=== PATIENT | female | born 1965 | race Caucasian/White ===

== ENCOUNTER 2018-08-10 11:52 | Emergency (ER) | payer MEDICARE, MEDICAID, SELFPAY ==
[2018-08-10 11:55] VITALS: BP 172/87; PULSE 103; RESP 16; TEMP 36.8; O2SAT 96
--- NOTE | 2018-08-10 13:05 | W.ED.GENAD ---
Discharge Plan Disposition Patient Disposition: HOME Condition: Stable Discharge Details Chief Complaint: RespSymp Clinical Impression: Acute bronchitis, URI (upper respiratory infection) Primary Care Provider: Ally Dalal ED Provider: Beatrice Ross Home Meds and New Rx's Prescriptions: New benzonatate [Tessalon Perles] 100 mg capsule 100 mg PO TID PRN (Reason: cough) Qty: 10 RF: 0 prednisone 50 mg tablet 50 mg PO DAILY 5 Days Qty: 5 RF: 0 albuterol sulfate 90 mcg/actuation HFA aerosol inhaler 2 puff IH Q6H PRN (Reason: shortness of breath or wheezing) Qty: 8.5 RF: 0 doxycycline hyclate 100 mg tablet 100 mg PO BID 5 Days Qty: 10 RF: 0 Continue prazosin 1 MG capsule 1 mg PO HS RF: 0 omeprazole 40 MG capsule,delayed release(DR/EC) 40 mg PO DAILY RF: 0 metformin [Glucophage] 1,000 MG tablet 1,000 mg PO BID Qty: 180 RF: 3 acyclovir 200 MG capsule 200 mg PO TID Qty: 270 RF: 3 blood sugar diagnostic [Accu-Chek SmartView Test Strip] 1 EACH strip 1 ea Miscellaneous BID Qty: 200 RF: 11 lancets [Accu-Chek Multiclix Lancet] 1 EACH misc 1 ea Miscellaneous BID Qty: 2 RF: 11 estradiol 1 EACH patch weekly 1 ea Transdermal Q7D 28 Days Qty: 4 RF: 6 duloxetine 60 MG capsule,delayed release(DR/EC) 60 mg PO DAILY 90 Days Qty: 90 RF: 3 loratadine [Claritin] 10 MG tablet 10 mg PO DAILY Qty: 90 RF: 0 levothyroxine 137 MCG tablet 137 mcg PO DAILY Qty: 90 RF: 0 quetiapine 50 mg tablet 50 mg PO HS Qty: 90 RF: 3 albuterol sulfate [Ventolin HFA] 90 mcg/actuation Hfa Aerosol Inhaler Inhalation PRN PRNRF: 0 Discontinued magnesium oxide 400 MG tablet 400 mg PO HS Qty: 250 RF: 6 Discharge Instructions Instructions: Upper Respiratory Infection (ED), Acute Bronchitis (ED) Additional Instructions: Drink plenty of fluids and get plenty of rest. Take the steroids as directed until finished. Take the cough medicine and albuterol inhaler as needed and directed. Hold on taking the magnesium while taking the antibiotic as it can have an interaction. If you have no relief or worsening of symptoms in the next 2 days, you may start the antibiotics. Follow-up with her primary care doctor in 2 days for reevaluation. Return immediately to the emergency department with any worsening or new concerning symptoms. Discharge Data Discharge Date/Time-TO BE ENTERED AT DEPARTURE: 08/10/18 13:30 Discharge Physician: Beatrice Ross Medical Decision Making Patient is a 53-year-old female who presents to the ED with a complaint of cough, chest congestion and headache worse with coughing for the past 3 weeks. Also c/o sore throat that is mainly present with coughing. Admits to green and yellow sputum production. Denies fever, neck pain. Has occasional shortness of breath but not at present. Afebrile and heart rate normal on exam in room. Oxygen saturation 96% on room air. Respiratory rate within normal limits. Patient appears nontoxic and in no acute distress. ENT exam within normal limits. She has very minimal wheezing noted but frequent coughing with chest congestion and on exam. Differential diagnosis appears consistent with acute bronchitis, URI, pharyngitis. No fever or neck pain and no meningeal signs. At this point in time, I do not see any indication for rapid strep testing or chest x-ray and patient is agreeable. Patient would mainly like a prescription for medications. We will send home with a prescription for prednisone, Tessalon Perles and she also requests a refill of her albuterol. Patient was advised that her symptoms could certainly be viral but may turn bacterial. We will send him with a prescription for Zithromax to start if her symptoms do not improve or worsen over the next 2 days. Patient is instructed to follow-up with primary care doctor in 1 week and return here immediately if worse. HPI General Mode of arrival: ambulatory. Date/Time Provider Initiated Documentation: 08/10/18 12:03. Limitations to Documentation: no limitations. Information obtained by: patient. HPI Narrative: Pt is a 53yo F who presents to the ED w/ a c/o cough with yellow and green sputum, sore throat and headache for 3 weeks, worse this morning. States the headache and chest congestion are bothering her the most. She denies known fever. She has been taking Mucinex, Advil, Denise-[place] without relief. She denies recent antibiotics. She admits to occasional shortness of breath but none at present. She denies chest pain. Past medical history: Diabetes, hypertension, asthma, seasonal allergies Surgical history: Knee reconstruction, cervical fusion Social history: Former tobacco smoker. Rare EtOH. Daily medical marijuana user for fibromyalgia and chronic neck pain. Medications: See list Allergies: Codeine, penicillin, erythromycin PCP: [facility] internal medicine Related Data Home Medications Medication Instructions Recorded Confirmed prazosin 1 mg PO HS cap 11/28/17 08/10/18 omeprazole 40 mg PO DAILY tab-cap 12/14/17 08/10/18 acyclovir 200 mg PO TID #270 cap 12/21/17 08/10/18 metformin [Glucophage] 1,000 mg PO BID #180 tab 12/21/17 08/10/18 blood sugar diagnostic [Accu-Chek #200 strip 01/10/18 SmartView Test Strip] lancets [Accu-Chek Multiclix #2 box 01/10/18 08/10/18 Lancet] duloxetine 60 mg PO DAILY 90 Days #90 cap 01/14/18 08/10/18 estradiol 1 ea TRANSDERMAL Q7D 28 Days #4 01/14/18 08/10/18 script loratadine [Claritin] 10 mg PO DAILY #90 tab-cap 04/10/18 08/10/18 levothyroxine 137 mcg PO DAILY #90 tab-cap 07/10/18 08/10/18 quetiapine 50 mg tablet 50 mg PO HS #90 tab 08/09/18 08/10/18 albuterol sulfate 2 puff IH Q6H PRN #8.5 gm 08/10/18 albuterol sulfate [Ventolin HFA] INHALATION PRN PRN 08/10/18 benzonatate [Tessalon Perles] 100 mg PO TID PRN #10 cap 08/10/18 doxycycline hyclate 100 mg PO BID 5 Days #10 tab 08/10/18 prednisone 50 mg PO DAILY 5 Days #5 tab 08/10/18 Previous Rx's Medication Instructions Recorded acyclovir 200 mg PO TID #270 cap 12/21/17 metformin [Glucophage] 1,000 mg PO BID #180 tab 12/21/17 blood sugar diagnostic [Accu-Chek #200 strip 01/10/18 SmartView Test Strip] lancets [Accu-Chek Multiclix #2 box 01/10/18 Lancet] duloxetine 60 mg PO DAILY 90 Days #90 cap 01/14/18 estradiol 1 ea TRANSDERMAL Q7D 28 Days #4 01/14/18 script loratadine [Claritin] 10 mg PO DAILY #90 tab-cap 04/10/18 levothyroxine 137 mcg PO DAILY #90 tab-cap 07/10/18 quetiapine 50 mg tablet 50 mg PO HS #90 tab 08/09/18 albuterol sulfate 2 puff IH Q6H PRN #8.5 gm 08/10/18 benzonatate [Tessalon Perles] 100 mg PO TID PRN #10 cap 08/10/18 doxycycline hyclate 100 mg PO BID 5 Days #10 tab 08/10/18 prednisone 50 mg PO DAILY 5 Days #5 tab 08/10/18 Allergies Allergy/AdvReac Type Severity Reaction Status Date / Time duloxetine HCl Allergy Unknown Unverified 08/10/18 11:59 [From [facility]] influenza virus vaccine, Allergy ill with Unverified 08/10/18 11:59 specific s/s for at least 2w Penicillins Allergy Headache Unverified 08/10/18 11:59 venlafaxine Allergy Unverified 08/10/18 11:59 codeine AdvReac Psychosis Unverified 08/10/18 11:59 erythromycin base AdvReac Nausea Unverified 08/10/18 11:59 General Stated Complaint: RespSymp MATT: 4 Review of Systems Constitutional Denies chills, Denies excessive sweating, Denies fatigue, Denies fever(s), Reports headache(s), Denies weakness and Denies weight loss Eyes Patient Reports system reviewed and no additional complaints, except as docu and Denies blurry vision ENT Denies vertigo, Denies dizziness, Denies otalgia, Reports headache(s), Reports nasal congestion, Reports nasal discharge, Reports sore throat and Denies throat swelling Cardiovascular Denies chest pain, Denies syncope, Denies rapid heart rate and Denies dyspnea Respiratory Denies dyspnea Gastrointestinal Denies abdominal pain, Denies diarrhea and Denies vomiting Genitourinary Denies hematuria, Denies dysuria and Denies flank pain Musculoskeletal Denies back pain and Denies joint swelling Integumentary/Breasts Denies lesions and Denies rash Neurologic Denies behavioral changes, Denies confusion, Denies vertigo, Denies dizziness, Denies syncope, Reports headache(s) and Denies weakness Psychiatric Denies behavioral changes, Denies confusion and Denies depression Endocrine Denies excessive sweating and Denies fatigue Hematologic/Lymphatic Denies easy bruising and Denies lymphadenopathy Allergic/Immunologic Denies throat swelling PFSH Family History Mother Hyperthyroidism Father No problems noted. Brother No problems noted. Brother No problems noted. Social History Smoking/Tobacco Use Status: Former Tobacco Use Surgical History Colonoscopy w/ Bx (07/22/13) Elbow Surgery Hysterectomy (10/21/10) Knee Surgery Open Carpal Tunnel release (01/13/13) [place] Teeth (01/29/18) Exam Const General: cooperative and healthy appearing Orientation: alert and awake HENMT Head: normal to inspection Ears: hearing grossly normal bilaterally, external ears normal and TM's normal bilaterally General nose exam: external nose normal Face and sinus: normal facial exam and sinuses tender (Mild tenderness to palpation of bilateral frontal sinuses. No tenderness to palpation of maxillary sinuses) Mouth: oral mucosae normal Teeth and gingiva: dentition normal Throat: posterior oropharynx normal, uvula midline, no peritonsillar masses and other (No exudate or abscess) Eyes General: appearance normal, both eyes and all related structures Eyelids: eyelids normal Pupils: PERRL EOM: EOM intact bilaterally Neck Neck: normal visual inspection Lymphatic: no lymphadenopathy noted Chest Chest: normal inspection of the chest Resp Effort & Inspection: normal respiratory effort and able to speak in complete sentences Auscultation: no crackles, no rales, no rhonchi and wheezes (Minimal scattered wheezing throughout) Cardio Rate: regular rate Rhythm: regular rhythm GI Inspection: normal to inspection Skin General skin exam: no rashes or lesions noted Neuro General: alert and awake Cognition: normal cognition Speech: speech normal Gait: normal gait Motor: muscle tone normal throughout Sensory Exam: no sensory deficits noted Extrem General: normal to inspection and full ROM Psych Appearance: grossly normal Mental Status: mental status grossly normal Speech and Movement: speech and movement normal Affect: normal affect Thought Process: normal Course Vital Signs Temperature 98.2 F 08/10/18 11:55 Pulse 103 H 08/10/18 11:55 Respiratory Rate 16 08/10/18 11:55 Blood Pressure 172/87 H 08/10/18 11:55 Pulse Oximetry 96 08/10/18 11:55 Temperature 98.2 F 08/10/18 11:55 Pulse 103 H 08/10/18 11:55 Respiratory Rate 16 08/10/18 11:55 Blood Pressure 172/87 H 08/10/18 11:55 Pulse Oximetry 96 08/10/18 11:55
--- NOTE | 2018-08-10 13:12 | ED.GENADUL_ITS ---
Discharge Plan Disposition Patient Disposition: HOME Condition: Stable Discharge Details Chief Complaint: RespSymp Clinical Impression: Acute bronchitis, URI (upper respiratory infection) Primary Care Provider: Ally Dalal ED Provider: Beatrice Ross Home Meds and New Rx's Prescriptions: New benzonatate [Tessalon Perles] 100 mg capsule 100 mg PO TID PRN (Reason: cough) Qty: 10 RF: 0 prednisone 50 mg tablet 50 mg PO DAILY 5 Days Qty: 5 RF: 0 albuterol sulfate 90 mcg/actuation HFA aerosol inhaler 2 puff IH Q6H PRN (Reason: shortness of breath or wheezing) Qty: 8.5 RF: 0 doxycycline hyclate 100 mg tablet 100 mg PO BID 5 Days Qty: 10 RF: 0 Continue prazosin 1 MG capsule 1 mg PO HS RF: 0 omeprazole 40 MG capsule,delayed release(DR/EC) 40 mg PO DAILY RF: 0 metformin [Glucophage] 1,000 MG tablet 1,000 mg PO BID Qty: 180 RF: 3 acyclovir 200 MG capsule 200 mg PO TID Qty: 270 RF: 3 blood sugar diagnostic [Accu-Chek SmartView Test Strip] 1 EACH strip 1 ea Miscellaneous BID Qty: 200 RF: 11 lancets [Accu-Chek Multiclix Lancet] 1 EACH misc 1 ea Miscellaneous BID Qty: 2 RF: 11 estradiol 1 EACH patch weekly 1 ea Transdermal Q7D 28 Days Qty: 4 RF: 6 duloxetine 60 MG capsule,delayed release(DR/EC) 60 mg PO DAILY 90 Days Qty: 90 RF: 3 loratadine [Claritin] 10 MG tablet 10 mg PO DAILY Qty: 90 RF: 0 levothyroxine 137 MCG tablet 137 mcg PO DAILY Qty: 90 RF: 0 quetiapine 50 mg tablet 50 mg PO HS Qty: 90 RF: 3 albuterol sulfate [Ventolin HFA] 90 mcg/actuation Hfa Aerosol Inhaler Inhalation PRN PRNRF: 0 Discontinued magnesium oxide 400 MG tablet 400 mg PO HS Qty: 250 RF: 6 Discharge Instructions Instructions: Upper Respiratory Infection (ED), Acute Bronchitis (ED) Additional Instructions: Drink plenty of fluids and get plenty of rest. Take the steroids as directed until finished. Take the cough medicine and albuterol inhaler as needed and directed. Hold on taking the magnesium while taking the antibiotic as it can have an interaction. If you have no relief or worsening of symptoms in the next 2 days, you may start the antibiotics. Follow-up with her primary care doctor in 2 days for reevaluation. Return immediately to the emergency department with any worsening or new concerning symptoms. Discharge Data Discharge Date/Time-TO BE ENTERED AT DEPARTURE: 08/10/18 13:30 Discharge Physician: Beatrice Ross Medical Decision Making Patient is a 53-year-old female who presents to the ED with a complaint of cough , chest congestion and headache worse with coughing for the past 3 weeks. Also c /o sore throat that is mainly present with coughing. Admits to green and yellow sputum production. Denies fever, neck pain. Has occasional shortness of breath but not at present. Afebrile and heart rate normal on exam in room. Oxygen saturation 96% on room air. Respiratory rate within normal limits. Patient appears nontoxic and in no acute distress. ENT exam within normal limits. She has very minimal wheezing noted but frequent coughing with chest congestion and on exam. Differential diagnosis appears consistent with acute bronchitis, URI, pharyngitis. No fever or neck pain and no meningeal signs. At this point in time, I do not see any indication for rapid strep testing or chest x-ray and patient is agreeable. Patient would mainly like a prescription for medications. We will send home with a prescription for prednisone, Tessalon Perles and she also requests a refill of her albuterol. Patient was advised that her symptoms could certainly be viral but may turn bacterial. We will send him with a prescription for Zithromax to start if her symptoms do not improve or worsen over the next 2 days. Patient is instructed to follow-up with primary care doctor in 1 week and return here immediately if worse. HPI General Mode of arrival: ambulatory . Date/Time Provider Initiated Documentation: 08/10/18 12:03 . Limitations to Documentation: no limitations . Information obtained by: patient . HPI Narrative: Pt is a 53yo F who presents to the ED w/ a c/o cough with yellow and green sputum, sore throat and headache for 3 weeks, worse this morning. States the headache and chest congestion are bothering her the most. She denies known fever. She has been taking Mucinex, Advil, Denise-[place] without relief. She denies recent antibiotics. She admits to occasional shortness of breath but none at present. She denies chest pain. Past medical history: Diabetes, hypertension, asthma, seasonal allergies Surgical history: Knee reconstruction, cervical fusion Social history: Former tobacco smoker. Rare EtOH. Daily medical marijuana user for fibromyalgia and chronic neck pain. Medications: See list Allergies: Codeine, penicillin, erythromycin PCP: [facility] internal medicine Related Data Home Medications Medication Instructions Recorded Confirmed prazosin 1 mg PO HS cap 11/28/17 08/10/18 omeprazole 40 mg PO DAILY tab-cap 12/14/17 08/10/18 acyclovir 200 mg PO TID #270 cap 12/21/17 08/10/18 metformin [Glucophage] 1,000 mg PO BID #180 tab 12/21/17 08/10/18 blood sugar diagnostic [Accu-Chek #200 strip 01/10/18 SmartView Test Strip] lancets [Accu-Chek Multiclix #2 box 01/10/18 08/10/18 Lancet] duloxetine 60 mg PO DAILY 90 Days #90 cap 01/14/18 08/10/18 estradiol 1 ea TRANSDERMAL Q7D 28 Days #4 01/14/18 08/10/18 script loratadine [Claritin] 10 mg PO DAILY #90 tab-cap 04/10/18 08/10/18 levothyroxine 137 mcg PO DAILY #90 tab-cap 07/10/18 08/10/18 quetiapine 50 mg tablet 50 mg PO HS #90 tab 08/09/18 08/10/18 albuterol sulfate 2 puff IH Q6H PRN #8.5 gm 08/10/18 albuterol sulfate [Ventolin HFA] INHALATION PRN PRN 08/10/18 benzonatate [Tessalon Perles] 100 mg PO TID PRN #10 cap 08/10/18 doxycycline hyclate 100 mg PO BID 5 Days #10 tab 08/10/18 prednisone 50 mg PO DAILY 5 Days #5 tab 08/10/18 Previous Rx's Medication Instructions Recorded acyclovir 200 mg PO TID #270 cap 12/21/17 metformin [Glucophage] 1,000 mg PO BID #180 tab 12/21/17 blood sugar diagnostic [Accu-Chek #200 strip 01/10/18 SmartView Test Strip] lancets [Accu-Chek Multiclix #2 box 01/10/18 Lancet] duloxetine 60 mg PO DAILY 90 Days #90 cap 01/14/18 estradiol 1 ea TRANSDERMAL Q7D 28 Days #4 01/14/18 script loratadine [Claritin] 10 mg PO DAILY #90 tab-cap 04/10/18 levothyroxine 137 mcg PO DAILY #90 tab-cap 07/10/18 quetiapine 50 mg tablet 50 mg PO HS #90 tab 08/09/18 albuterol sulfate 2 puff IH Q6H PRN #8.5 gm 08/10/18 benzonatate [Tessalon Perles] 100 mg PO TID PRN #10 cap 08/10/18 doxycycline hyclate 100 mg PO BID 5 Days #10 tab 08/10/18 prednisone 50 mg PO DAILY 5 Days #5 tab 08/10/18 Allergies Allergy/AdvReac Type Severity Reaction Status Date / Time duloxetine HCl Allergy Unknown Unverified 08/10/18 11:59 [From [facility]] influenza virus vaccine, Allergy ill with Unverified 08/10/18 11:59 specific s/s for at least 2w Penicillins Allergy Headache Unverified 08/10/18 11:59 venlafaxine Allergy Unverified 08/10/18 11:59 codeine AdvReac Psychosis Unverified 08/10/18 11:59 erythromycin base AdvReac Nausea Unverified 08/10/18 11:59 General Stated Complaint: RespSymp MATT: 4 Review of Systems Constitutional Denies chills, Denies excessive sweating, Denies fatigue, Denies fever(s), Reports headache(s), Denies weakness and Denies weight loss Eyes Patient Reports system reviewed and no additional complaints, except as docu and Denies blurry vision ENT Denies vertigo, Denies dizziness, Denies otalgia, Reports headache(s), Reports nasal congestion, Reports nasal discharge, Reports sore throat and Denies throat swelling Cardiovascular Denies chest pain, Denies syncope, Denies rapid heart rate and Denies dyspnea Respiratory Denies dyspnea Gastrointestinal Denies abdominal pain, Denies diarrhea and Denies vomiting Genitourinary Denies hematuria, Denies dysuria and Denies flank pain Musculoskeletal Denies back pain and Denies joint swelling Integumentary/Breasts Denies lesions and Denies rash Neurologic Denies behavioral changes, Denies confusion, Denies vertigo, Denies dizziness, Denies syncope, Reports headache(s) and Denies weakness Psychiatric Denies behavioral changes, Denies confusion and Denies depression Endocrine Denies excessive sweating and Denies fatigue Hematologic/Lymphatic Denies easy bruising and Denies lymphadenopathy Allergic/Immunologic Denies throat swelling PFSH Family History Mother Hyperthyroidism Father No problems noted. Brother No problems noted. Brother No problems noted. Social History Smoking/Tobacco Use Status: Former Tobacco Use Surgical History Colonoscopy w/ Bx (07/22/13) Elbow Surgery Hysterectomy (10/21/10) Knee Surgery Open Carpal Tunnel release (01/13/13) [place] Teeth (01/29/18) Exam Const General: cooperative and healthy appearing Orientation: alert and awake HENMT Head: normal to inspection Ears: hearing grossly normal bilaterally, external ears normal and TM's normal bilaterally General nose exam: external nose normal Face and sinus: normal facial exam and sinuses tender (Mild tenderness to palpation of bilateral frontal sinuses. No tenderness to palpation of maxillary sinuses) Mouth: oral mucosae normal Teeth and gingiva: dentition normal Throat: posterior oropharynx normal, uvula midline, no peritonsillar masses and other (No exudate or abscess) Eyes General: appearance normal, both eyes and all related structures Eyelids: eyelids normal Pupils: PERRL EOM: EOM intact bilaterally Neck Neck: normal visual inspection Lymphatic: no lymphadenopathy noted Chest Chest: normal inspection of the chest Resp Effort & Inspection: normal respiratory effort and able to speak in complete sentences Auscultation: no crackles, no rales, no rhonchi and wheezes (Minimal scattered wheezing throughout) Cardio Rate: regular rate Rhythm: regular rhythm GI Inspection: normal to inspection Skin General skin exam: no rashes or lesions noted Neuro General: alert and awake Cognition: normal cognition Speech: speech normal Gait: normal gait Motor: muscle tone normal throughout Sensory Exam: no sensory deficits noted Extrem General: normal to inspection and full ROM Psych Appearance: grossly normal Mental Status: mental status grossly normal Speech and Movement: speech and movement normal Affect: normal affect Thought Process: normal Course Vital Signs Temperature 98.2 F 08/10/18 11:55 Pulse 103 H 08/10/18 11:55 Respiratory Rate 16 08/10/18 11:55 Blood Pressure 172/87 H 08/10/18 11:55 Pulse Oximetry 96 08/10/18 11:55 Temperature 98.2 F 08/10/18 11:55 Pulse 103 H 08/10/18 11:55 Respiratory Rate 16 08/10/18 11:55 Blood Pressure 172/87 H 08/10/18 11:55 Pulse Oximetry 96 08/10/18 11:55
== END 2018-08-10 13:30 | disposition home or self-care (01) ==
PROVIDERS: Emergency Provider Physician Assistant; PCP Student in an Organized Health Care Education/Training Program
DX: J20.9 Acute bronchitis, unspecified (principal); J06.9 Acute upper respiratory infection, unspecified; E11.9 Type 2 diabetes mellitus without complications; Z79.84 Long term (current) use of oral hypoglycemic drugs; Z87.891 Personal history of nicotine dependence; I10 Essential (primary) hypertension
CPT/HCPCS: 99283

== ENCOUNTER 2019-02-28 00:28 | Outpatient (CLI) | payer MEDICARE, MEDICAID, SELFPAY ==
--- NOTE | 2019-02-28 09:43 | DI.US_ITS ---
SYMPTOMS/DIAGNOSIS: HX FIBROID WITH NEW ONSET RLQ PAIN, RT GROIN PAIN, R10.31, Z86.018 HX BENIGN NEOPLASM PELVIC ULTRASOUND: Pelvic ultrasound was performed transabdominally and transvaginally. Please see the accompanying data sheet for measurements of the pelvic structures. The patient has had a previous hysterectomy. The ovaries are unremarkable in appearance. No free fluid identified in the pelvis. Limited scanning of the kidneys shows an apparent medullary cyst on the right and is otherwise unremarkable. CONCLUSION: Negative pelvic ultrasound post hysterectomy.
== END 2019-02-28 00:48 ==
PROVIDERS: PCP Student in an Organized Health Care Education/Training Program; Visit Provider Student in an Organized Health Care Education/Training Program
DX: R10.31 Right lower quadrant pain (principal); Z86.018 Personal history of other benign neoplasm; Z90.710 Acquired absence of both cervix and uterus
CPT/HCPCS: 76830; 76856

== ENCOUNTER 2019-08-20 16:37 | Outpatient (REF) | payer MEDICARE, MEDICAID, SELFPAY ==
[2019-08-20 20:40] LABS: TSH (W/Ref FT4) 2.27 uIU/mL (0.36-3.74)
== END 2019-08-20 16:57 ==
LOC: LBN 16:37
PROVIDERS: PCP Student in an Organized Health Care Education/Training Program; Referring Provider Student in an Organized Health Care Education/Training Program; Visit Provider Student in an Organized Health Care Education/Training Program
DX: E03.9 Hypothyroidism, unspecified (principal)
CPT/HCPCS: 84443

== ENCOUNTER 2019-09-23 01:27 | Outpatient (CLI) | payer MEDICARE, MEDICAID, SELFPAY ==
--- NOTE | 2019-09-23 15:05 | DI.MAMMO_ITS ---
EXAM: MG MAMMO SCREENING CLINICAL HISTORY: screening, Z12.39 TECHNIQUE: Mammograms were interpreted according to the usual protocol including computer analysis w [employer] CAD system, tomosynthesis and C-view imaging. COMPARISON: 2017 FINDINGS: The breasts are composed of scattered areas of fibroglandular density, breast density category B. Th ere are no significant masses or signficant microcalcifications. There has been no significant interv al change when compared with prior images. IMPRESSION: Category 1, negative mammogram. Yearly screening mammography is recommended. BI-RADS Cat 1 - Negative Breast Density - Category B - Scattered areas of fibroglandular density
== END 2019-09-23 01:47 ==
PROVIDERS: PCP Student in an Organized Health Care Education/Training Program; Visit Provider Student in an Organized Health Care Education/Training Program
DX: Z12.31 Encounter for screening mammogram for malignant neoplasm of breast (principal)
CPT/HCPCS: 77063; 77067

== ENCOUNTER → 2019-11-21 13:42 | Outpatient (BNVA) | payer MEDICARE, MEDICAID, SELFPAY | PROVIDERS: PCP Student in an Organized Health Care Education/Training Program; Referring Provider Student in an Organized Health Care Education/Training Program; Visit Provider Physical Therapy Assistant | DX: Z12.11 Encounter for screening for malignant neoplasm of colon (principal); Z86.010 Personal history of colon polyps; Z80.0 Family history of malignant neoplasm of digestive organs; E11.9 Type 2 diabetes mellitus without complications; I10 Essential (primary) hypertension ==

== ENCOUNTER 2019-12-12 09:02 | Day surgery (SDC) | payer MEDICARE, MEDICAID, SELFPAY ==
[2019-12-12 09:22] VITALS: BP 137/86; PULSE 66; RESP 16; TEMP 36.7; O2SAT 97
[2019-12-12] MEDS: Lactated Ringers 1,000 ML 80 ML IV (09:43)
--- NOTE | 2019-12-12 11:07 | W.COLOREPORT ---
Date of service: 12/12/19 Time of Service: 11:08 Colonoscopy Report Date of procedure: 12/12/19 Pre-op diagnosis general: hx of polyps/secondary familiy member w/ CRC Post-op diagnosis procedure note: other (nl Colon today ) Procedure: CE Surgeon: Luana Marte Anesthesia proc note operative: GETA Estimated blood loss (mL): 0 Pathology: none sent Complications: None Disposition: same day Prep: Miralax/Dulcolax Retraction Time: 10 Procedure Description: After informed consent was obtained the patient was taken to the procedure room and placed in a left decubitous position. Monitors were applied and a time out was done. The patients name, date of , procedure, allergies to medications and metal in their body was reviewed. The patient was then sedated. Once sedated and comfortable a rectal exam was done. External exam shows: min external tags . Internal exam revealed a normal sphincter tone and no palpable masses. The scope was then introduced and retrofelexed. grade I internal hemorrhoids were identified. The scope was then advanced to the cecum w/out difficulty. The TI and appendiceal orifice were identified. The prep was adequate. The scope was then slowly retracted over 10 minutes back into the rectum. No polyps AVMs or diverticula identified. The mucosa and vasculature appeared normal. The scope was removed and the patient was woken up and taken back to Same day surgery in stable condition. The patient tolerated the procedure well and there were no immediate complications. Follow up: The patient should follow up in 10 years unless they develop changes in bowel habits or other new gastrointestinal complaints.
--- NOTE | 2019-12-12 11:11 | W.PM.DSUDISC ---
Discharge Plan Disposition Patient Disposition: HOME Condition: Good Discharge Details Reason For Visit: colon scope Attending Provider: Luana Marte Primary Care Provider: Ally Dalal Home Meds and New Rx's Prescriptions: Continued quetiapine 50 mg tablet 50 mg PO HS Qty: 90 RF: 3 albuterol sulfate [Ventolin HFA] 90 mcg/actuation HFA aerosol inhaler 2 puff Inhalation PRN PRN (Reason: shortness of breath or wheezing) Qty: 8.5 RF: 1 (DME) Accu-Chek SmartView Test Strip 1 EACH strip 1 ea Miscellaneous BID Qty: 200 RF: 11 (DME) lancets [Accu-Chek Multiclix Lancet] 1 EACH misc 1 ea Miscellaneous BID Qty: 2 RF: 11 loratadine [Claritin] 10 MG tablet 10 mg PO DAILY Qty: 90 RF: 0 albuterol sulfate 0.63 mg/3 mL solution for nebulization 0.63 mg IH QID PRN (Reason: shortness of breath or wheezing) Qty: 75 RF: 0 acyclovir 200 mg capsule 200 mg PO TID Qty: 270 RF: 3 medical marijuana PO RF: 0 levothyroxine 137 mcg tablet 137 mcg PO DAILY Qty: 90 RF: 3 duloxetine 60 mg capsule,delayed release(DR/EC) 60 mg PO DAILY 90 Days Qty: 90 RF: 3 estradiol 0.0375 mg/24 hr patch weekly 1 patch TD QWEEK Qty: 1 RF: 3 metformin [Glucophage] 1,000 mg tablet 1,000 mg PO BID Qty: 180 RF: 3 omeprazole 40 mg capsule,delayed release(DR/EC) 40 mg PO DAILY Qty: 90 RF: 3 Discontinued polyethylene glycol 3350 17 gram/dose powder 238 g PO ONCE Qty: 238 RF: 0 bisacodyl [Dulcolax (bisacodyl)] 5 mg tablet,delayed release (DR/EC) 5 mg PO ONCE Qty: 4 RF: 0 Discharge Instructions Instructions: High Fiber Diet (GEN) Additional Instructions: Findings:normal colon today high fiber diet for colon health Follow up: repeat in 10 yrs time Please call if you develop: fevers >101.5 Nausea or Vomiting Abdominal pain that is not transient DAY SURGERY UNIT POST COLONOSCOPY INSTRUCTIONS 1. Because there will be medication in your system for the next 24 hours, you may feel a little sleepy. Your coordination will be affected. Therefore: a. Do not drive or operate dangerous equipment for 24 hours. b. Do not drink alcohol beverages for 24 hours (not even beer). c. Plan to go home and rest for the day. 2. Generally there are no restrictions on your activity after a day or so has gone by, but you may feel a bit fatigued for a few days. 3 After you arrive home you may have a light meal and return to a normal diet as you can tolerate it without feeling sick to your stomach. 4. After surgery, you may feel pain or discomfort. This should be only transient, but if it persists please contact your doctor. 5. If there are any questions regarding the findings of your procedure, please feel free to contact your doctor. 6. If you are unable to contact your doctor with a problem, contact the hospital at [phone]. 7. Continue all your regular medications unless directed otherwise. I understand the above instructions and have no questions. Signature of Patient or Responsible Adult Escort Date/Time Name of Responsible Adult Escort Signature of Nurse Date/Time Activity:: No lifting over 20 pounds or strenuous activity x24 hours Diet:: Small light meals x24 hours Discharge Orders Discharge Orders: Discharge Order (Routine); Ordered 12/12/19 Ordered By: Luana Marte DS: Diagnosis Discharge Diagnosis (1) History of colon polyps: Start date: 12/12/19 Start time: 11:12 Status: Acute
[2019-12-12 11:29] VITALS: BP 143/84; PULSE 67; RESP 16; TEMP 36.3; O2SAT 97
== END 2019-12-12 12:03 | disposition home or self-care (01) ==
PROVIDERS: PCP Student in an Organized Health Care Education/Training Program; Visit Provider Surgery
PROC: 0DJD8ZZ Inspection of Lower Intestinal Tract, Via Natural or Artificial Opening Endoscopic (ICD-10-PCS; CPT 45378; principal; 2019-12-12 10:30)
DX: Z12.11 Encounter for screening for malignant neoplasm of colon (principal); Z86.010 Personal history of colon polyps; Z80.0 Family history of malignant neoplasm of digestive organs; K64.0 First degree hemorrhoids; E11.9 Type 2 diabetes mellitus without complications; Z79.84 Long term (current) use of oral hypoglycemic drugs; I10 Essential (primary) hypertension; K21.9 Gastro-esophageal reflux disease without esophagitis; G47.33 Obstructive sleep apnea (adult) (pediatric)
CPT/HCPCS: G0121; J2001; J2704

== ENCOUNTER 2020-01-13 14:34 | Outpatient (REF) | payer MEDICARE, MEDICAID, SELFPAY ==
--- NOTE | 2020-01-13 13:15 | PAPFT_PTH ---
PATIENT: Dolly Xie LOC: [facility] U#:[id number] AGE/SX: 54/F ROOM: RE01/13/[address]: Joyce Vivar NP : 1965 BED: DIS: 01/13/2020 SPEC #: [id number] RECD: 01/13/20 18:12 STATUS: MIKE RENataliya #: [id number] FILOMENA: 01/13/20 13:[address]: Joyce Vivar NP [facility] Cytology RECD BY: Tabitha Gomez ENTERED: 01/13/20 18:14 SP TYPE: PAPFT OTHR DR: Ally Dalal, DO Tissues: 1 - CX/ENDOCX FOR PAP SMEARS Procedures: PAP THIN PREP/UVM Screening Comments: [id number]
== END 2020-01-13 14:54 ==
LOC: LBN 14:34
PROVIDERS: PCP Student in an Organized Health Care Education/Training Program; Visit Provider Nurse Practitioner Women's Health
DX: Z12.4 Encounter for screening for malignant neoplasm of cervix (principal); Z11.51 Encounter for screening for human papillomavirus (HPV); Z90.711 Acquired absence of uterus with remaining cervical stump
CPT/HCPCS: 88142

== ENCOUNTER → 2020-03-25 10:11 | Outpatient (BNVA) | payer MEDICARE, MEDICAID, SELFPAY | PROVIDERS: PCP Student in an Organized Health Care Education/Training Program; Referring Provider Student in an Organized Health Care Education/Training Program; Visit Provider Nurse Practitioner Gerontology | DX: R39.11 Hesitancy of micturition (principal); N39.3 Stress incontinence (female) (male); E11.9 Type 2 diabetes mellitus without complications | CPT/HCPCS: 81003; 99204; 99215 ==

== ENCOUNTER 2020-04-27 01:29 | Outpatient (CLI) | payer MEDICARE, MEDICAID, SELFPAY ==
--- NOTE | 2020-04-27 07:00 | DI.US_ITS ---
EXAM: MG MAMMO DIAGNOSTIC UNI CLINICAL HISTORY: left breast pain,n64.4, mastodynia. COMPARISON: Priors for comparison. TECHNIQUE: Craniocaudal and mediolateral oblique Full Field Digital Mammography views of the left br east with Computer Aided Diagnosis followed by Tomosynthesis and left breast ultrasound. FINDINGS: Mammography/Tomosynthesis: Masses/Architectural Distortion: None seen. Microcalcifications: No suspicious pleomorphic-type are seen. Skin Thickening/Nipple Retraction: None. Left breast US: Echotexture: Normal appearance of the glandular tissue. Shadowing: No suspicious foci. Cyst: None. Solid lesions: 1.6 x 0.7 cm benign-appearing lymph node at the 1 o'clock position 9 cm from the nippl e. No suspicious masses are seen sonographically. Ductal dilation: None. IMPRESSION: 1. No evidence of malignancy is noted. 2. Unless there is more urgent need, follow-up screening mammography is recommended, as per [employer] guidelines. BI-RADS Category 1 - Negative Breast Density - Category B - Scattered areas of fibroglandular density The findings were discussed with the patient on the date of the examination. A negative radiographic report should not delay biopsy if a dominant or clinically suspicious mass is present. Up to ten percent of cancers are not identified on mammography. A negative report may reinforce clinical impression. Adenosis and dense breasts may obscure an underlying neoplasm. False positive reports average 6 to 10%. Patient will receive a letter notifying them of these results.
== END 2020-04-27 01:49 ==
PROVIDERS: PCP Student in an Organized Health Care Education/Training Program; Visit Provider Nurse Practitioner Women's Health
DX: N64.4 Mastodynia (principal); R59.0 Localized enlarged lymph nodes
CPT/HCPCS: 76642; 77061; 77065; G0279

== ENCOUNTER 2020-06-09 03:41 | Outpatient (CLI) | payer MEDICARE, MEDICAID, SELFPAY ==
[2020-06-09 10:19] LABS: HCT 43.9 % (36.0-46.0); Mean Corp. HGB Concentration 34.2 g/dL (32.0-36.0); Mean Corpuscular Hemoglobin 30.5 pg (27.0-33.0); Mean Corpuscular Volume 89.2 fL (80-95); Mean Platelet Volume 9.6 fL (8.0-11.0); Platelet Count 306 x1000/uL (130-400); RBC 4.92 m/cumm (4.00-5.20); RBC Distribution Width 12.8 % (11.7-14.6); White Blood Cell Count 6.14 k/cumm (4.4-10.8)
[2020-06-09 11:17] LABS: Anion Gap 8.3 mmol/L (3-11); BUN 14 mg/dL (7-18); CO2 31.7 mmol/L (21.0-32.0); CREATININE 0.72 mg/dL (0.55-1.02); Calcium 9.6 mg/dL (8.5-10.1); Calculated LDL 142 mg/dL (<100); Chloride 101 mmol/L (98-107); Cholesterol 231 mg/dL (<200); Glucose 169 mg/dL (74-106); HDL Cholesterol 67 mg/dL (40-60); Sodium 141 mmol/L (136-145); TSH (W/Ref FT4) 0.12 uIU/mL (0.36-3.74); Triglyceride 111 mg/dL (<150)
[2020-06-09 11:36] LABS: FREE T4 1.23 ng/dL (0.76-1.46)
== END 2020-06-09 04:01 ==
PROVIDERS: PCP Student in an Organized Health Care Education/Training Program; Visit Provider Student in an Organized Health Care Education/Training Program
DX: I10 Essential (primary) hypertension (principal); Z13.220 Encounter for screening for lipoid disorders; Z86.39 Personal history of other endocrine, nutritional and metabolic disease; F43.23 Adjustment disorder with mixed anxiety and depressed mood; F41.9 Anxiety disorder, unspecified
CPT/HCPCS: 36415; 80048; 80061; 85027; 84439; 84443

== ENCOUNTER 2020-09-22 01:09 | Outpatient (CLI) | payer MEDICARE, MEDICAID, SELFPAY ==
--- NOTE | 2020-09-22 10:49 | DI.RAD_ITS ---
EXAM: XR LUMBAR SPINE COMPLETE CLINICAL HISTORY: r/o bony pathology; eval lordosis,low back pain,m54.5. TECHNIQUE: 2D digital imaging was performed. COMPARISON: No exams were available for comparison FINDINGS: There are 6 lumbar type vertebral bodies. There is a mild right convex scoliosis of the lumbar spine . No spondylolysis or spondylolisthesis is seen. Facet arthropathy is seen in the lower lumbar spin e. Varying degrees of disc space narrowing and endplate osteophytes are seen in the lumbar spine. N o acute fracture or subluxation. The bones are normally mineralized. Mild atherosclerosis is presen t. Surgical clips are seen in the pelvis. IMPRESSION: Moderate degenerative changes in the lumbar spine. DATA REPOSITORY: RADIATION DOSE DELIVERED:
--- NOTE | 2020-09-22 10:49 | DI.RAD_ITS ---
EXAM: XR CERVICAL SPINE COMP 4-5V CLINICAL HISTORY: eval Hx cerv disc dz; r/o bony path,radiculopathy,m54.12,g89.4,m50.30. TECHNIQUE: 2D digital imaging was performed. COMPARISON: No exams were available for comparison FINDINGS: The odontoid is intact. The lateral masses are well aligned. There is anterior fusion from C4 throu gh C7. The orthopedic hardware appears in good position. There is normal alignment of the cervical spine. Mild degenerative changes are seen in the cervical spine. No acute fracture or subluxation i s seen. The bones are normally mineralized. No significant neural foraminal narrowing is seen. The prevertebral soft tissues are unremarkable. IMPRESSION: Mild degenerative changes in the cervical spine. Anterior fusion from C4 through C7. DATA REPOSITORY: RADIATION DOSE DELIVERED:
--- NOTE | 2020-09-22 10:49 | DI.RAD_ITS ---
EXAM: XR THORACIC SPINE COMPLETE CLINICAL HISTORY: r/o bony pathology,acute upper back pain,m54.9,m54.12. TECHNIQUE: 2D digital imaging was performed. COMPARISON: No exams were available for comparison FINDINGS: There is a moderate right convex scoliosis. There is disc space narrowing and endplate osteophytes a t multiple levels of the thoracic spine. No acute fracture or subluxation is seen. Note is made of anterior fusion in the lower cervical spine. Paraspinal lines in the thoracic spine are unremarkable . The bones are normally mineralized. IMPRESSION: Moderate degenerative changes in the lumbar spine. Thoracic scoliosis. DATA REPOSITORY: RADIATION DOSE DELIVERED:
== END 2020-09-22 01:29 ==
PROVIDERS: PCP Student in an Organized Health Care Education/Training Program; Visit Provider Student in an Organized Health Care Education/Training Program
DX: M47.816 Spondylosis without myelopathy or radiculopathy, lumbar region (principal); M47.22 Other spondylosis with radiculopathy, cervical region; N39.46 Mixed incontinence
CPT/HCPCS: 81003; 99213; 72050; 72072; 72110

== ENCOUNTER 2020-10-07 00:52 | Outpatient (CLI) | payer MEDICARE, MEDICAID, SELFPAY ==
--- NOTE | 2020-10-07 08:00 | DI.RAD_ITS ---
EXAM: XR HIP PELVIS ADULT BL and XR sacroiliac joints CLINICAL HISTORY: r/o bony pathology; SI Joint Arthritis?, hip pain, acute buttock pain,. TECHNIQUE: 2D digital imaging was performed. COMPARISON: CR XR SACROILIAC JOINTS from 10/07/2020 FINDINGS: BONES: No acute fracture is present. No bony destructive lesion is seen. The bones are normally pension examiner alized. JOINTS: No dislocation present. The sacroiliac joints appear well maintained. No ankylosis or erosio ns. The hip joints are well maintained. SOFT TISSUE: Normal. There are surgical clips in the pelvis. IMPRESSION: Unrmarkable radiographs of bilat hips. Unremarkable radiographs of the sacrum DATA REPOSITORY: RADIATION DOSE DELIVERED:
--- NOTE | 2020-10-07 08:00 | DI.RAD_ITS ---
EXAM: XR HIP PELVIS ADULT BL and XR sacroiliac joints CLINICAL HISTORY: r/o bony pathology; SI Joint Arthritis?, hip pain, acute buttock pain,. TECHNIQUE: 2D digital imaging was performed. COMPARISON: CR XR SACROILIAC JOINTS from 10/07/2020 FINDINGS: BONES: No acute fracture is present. No bony destructive lesion is seen. The bones are normally latent fingerprint examiner alized. JOINTS: No dislocation present. The sacroiliac joints appear well maintained. No ankylosis or erosio ns. The hip joints are well maintained. SOFT TISSUE: Normal. There are surgical clips in the pelvis. IMPRESSION: Unrmarkable radiographs of bilat hips. Unremarkable radiographs of the sacrum DATA REPOSITORY: RADIATION DOSE DELIVERED:
== END 2020-10-07 01:12 ==
PROVIDERS: PCP Student in an Organized Health Care Education/Training Program; Visit Provider Student in an Organized Health Care Education/Training Program
DX: M25.552 Pain in left hip (principal); M25.551 Pain in right hip
CPT/HCPCS: 73521; 72202

== ENCOUNTER 2020-10-11 17:52 | Outpatient (REF) | payer MEDICARE, MEDICAID, SELFPAY ==
--- NOTE | 2020-10-11 11:30 | PAPFT_PTH ---
PATIENT: Dolly Xie LOC: [facility] U#:[id number] AGE/SX: 55/F ROOM: RE10/11/[address]: Eddie Mackenzie MD : 1965 BED: DIS: 10/11/2020 SPEC #: [id number] RECD: 10/11/20 18:17 STATUS: MIKE REQ #: [id number] FILOMENA: 10/11/20 11:[address]: Eddie Mackenzie DEPT: [facility] Cytology RECD BY: Tabitha Gomez ENTERED: 10/11/20 18:18 SP TYPE: PAPFT OTHR DR: Ally Dalal, Tissues: 1 - CX/ENDOCX FOR PAP SMEARS Procedures: PAP THIN PREP/UVM Screening HPV DNA PROBE Comments: [id number] ([id number] [facility])
== END 2020-10-11 18:12 ==
LOC: LBN 17:52
PROVIDERS: PCP Student in an Organized Health Care Education/Training Program; Visit Provider Obstetrics & Gynecology
DX: Z12.4 Encounter for screening for malignant neoplasm of cervix (principal); Z11.51 Encounter for screening for human papillomavirus (HPV)
CPT/HCPCS: 88142; 87624

== ENCOUNTER 2020-10-22 09:38 | Outpatient (CLI) | payer MEDICARE, MEDICAID, SELFPAY ==
[2020-10-23 16:46] LABS: COVID-19 RT-PCR Result NEGATIVE (Negative)
== END 2020-10-22 09:58 ==
PROVIDERS: PCP Student in an Organized Health Care Education/Training Program; Visit Provider Student in an Organized Health Care Education/Training Program
DX: Z20.828 Contact with and (suspected) exposure to other viral communicable diseases (principal)
CPT/HCPCS: U0003

== ENCOUNTER → 2020-11-22 09:14 | Outpatient (BNVA) | payer MEDICARE, MEDICAID, SELFPAY | PROVIDERS: PCP Student in an Organized Health Care Education/Training Program; Referring Provider Student in an Organized Health Care Education/Training Program; Visit Provider Nurse Practitioner Gerontology | DX: N39.46 Mixed incontinence (principal) | CPT/HCPCS: 99213 ==

== ENCOUNTER 2020-12-02 02:40 | Outpatient (CLI) | payer MEDICARE, MEDICAID, SELFPAY ==
[2020-12-03 15:26] LABS: COVID-19 RT-PCR Result NEGATIVE (Negative)
== END 2020-12-02 03:00 ==
PROVIDERS: Urology; PCP Student in an Organized Health Care Education/Training Program; Visit Provider Nurse Practitioner Gerontology
DX: Z11.52 Encounter for screening for COVID-19 (principal)
CPT/HCPCS: U0003

== ENCOUNTER 2020-12-06 08:48 | Day surgery (SDC) | payer MEDICARE, MEDICAID, SELFPAY ==
--- NOTE | 2020-12-03 15:09 | NUR.NOTE ---
X2 Attempts to reach patient unsuccessfully. Voicemail message left with arrival time of 0900, NPO status explained. Enter through main entrance with mask, have a ride home set up in place prior to arrival. Nursing Note:
[2020-12-06 09:03] VITALS: BP 152/94; PULSE 75; RESP 16; TEMP 36.6; O2SAT 95
--- NOTE | 2020-12-06 09:15 | W.PM.HP.N ---
Date of service: 12/06/20 Time of Service: 10:16 Assessment and Plan Assessment and plan (1) Mixed stress and urge urinary incontinence: Status: Acute Assessment and plan: We will inject Coptite at the bladder neck for the stress and ISD component of her incontinence History of Present Illness History of Present Illness Chief Complaint: Urinary Incontinence Narrative: Dolly is here for follow-up on her mixed incontinence. We initially did conservative therapy with pelvic floor and weight reduction. No improvements were made mainly due to patient not completing following through. She then was looking for the next least invasive treatment for her mixed incontinence. We started her on Toviaz for her urge incontinence which caused unbearable constipation. She also saw a woman's wellness for use of pessary for her stress incontinence. She felt that her incontinence especially her stress incontinence has worsened with the use of a pessary. She is here now to further discuss different options that may be more invasive such as surgical interventions. She denies dysuria, gross hematuria, frequency, feeling of incomplete emptying or flank pain. After discussing multiple treatment options, she is agreeable to an injection of a bulking agent at the bladder neck. Review of Systems Narrative: No fevers or chills No vision change or dysphasia No diabetes. Hx hypothyroidism Hx sleep apnea. No shortness of breath, cough or hemoptysis No chest pain or palpitations No nausea, vomiting, hepatitis, ulcers, jaundice No seizures. Hx Migraines No bleeding disorders or anemia No gout. Chronic back pain FOR[facility]LY [facility], [facility]1983 Medical History Abdominal pannus recommending pannilectomy (Dr. Fang/[facility] [place]) Acute upper back pain 2' increased heavy lifting, mopping @ work. Chronic issue with acute complaints 2' overuse Depression (11/02/17) Long Hx with exacerbating event just over a year ago. Moving here from [place] is a helpful move. Quet used for just near a year. admission 01/19/16-01/26/16 suicidal ideation/depression Former tobacco use smoked 1 ppd quit and pt states she did not smoke for 30 yrs. Low Scan Chest ct not indicated. 08/20/19 cgc History of colon polyps Hx estrogen therapy Has greatly helped with depression .. D/C'd 04/2020 by [facility] 2' high BPs. Doing terribly with mood/depression, 05/26/20. Pessary maintenance Urinary hesitancy Vaginal pessary present Surgical History Colonoscopy w/ Bx (07/22/13) Polyps, therefore 5 yr FU Elbow Surgery History of surgery Neck surgery Hysterectomy (10/21/10) Fibroids Knee Surgery knee reconstruction Open Carpal Tunnel release (01/13/13) Bilateral [place] Teeth (01/29/18) Family History Mother Hyperthyroidism Mental health problem Daughter Mental health problem Social History Smoking/Tobacco Use Status: Former Tobacco Use Quit Date: 11/19/89 Smoking risk assessment performed?: Yes Alcohol Intake: current Alcohol Intake frequency: holidays/special occasions only Drug use: Daily Substance use type: marijuana Household members: none Number of Children: 2 number of grandchildren: 3 Communication Needs: None current occupation: works at [employer] What type of physical activity do you participate in: walking Frequency: 1-2 times per week Seatbelt use: always Drive intox or ride w/intox stage driver: No Working smoke detector in home: Yes Fire extinguisher in home: Yes Carbon monox detector in home: Yes Do you feel safe at home: Yes Additional Social history: alone Meds Home Medications and Allergies Home Medications Medication Instructions Recorded Confirmed Type Accu-Chek SmartView Test Strip #200 strip 01/10/18 12/03/20 Rx lancets [Accu-Chek Multiclix #2 box 01/10/18 11/30/20 Rx Lancet] loratadine [Claritin] 10 mg PO DAILY #90 tab-cap 04/10/18 12/06/20 Rx albuterol sulfate 0.63 mg/3 mL 0.63 mg IH QID PRN #75 ml 08/23/18 12/06/20 Rx solution for nebulization medical marijuana PO 08/28/19 11/30/20 History metformin 1,000 mg tablet 1,000 mg PO BID #180 tab 12/02/19 12/06/20 Rx omeprazole 40 mg capsule,delayed 40 mg PO DAILY #90 tab-cap 12/02/19 12/06/20 Rx release levothyroxine 137 mcg tablet 137 mcg PO DAILY 01/13/20 12/06/20 History albuterol sulfate 90 mcg/actuation 2 puff INHALATION PRN PRN #8.5 gm 01/17/20 12/06/20 Rx aerosol inhaler acyclovir 200 mg capsule 200 mg PO TID #270 cap 04/09/20 12/06/20 Rx hydrochlorothiazide 25 mg tablet 25 mg PO DAILY #90 tab 07/22/20 12/06/20 Rx magnesium gluconate 27.5 mg 27.5 mg PO DAILY #90 tab 07/22/20 12/06/20 Rx magnesium (500 mg) tablet inhalational spacing device #1 ea 09/11/20 12/03/20 Rx duloxetine 30 mg capsule,delayed 30 mg PO DAILY #90 cap MDD 90 09/24/20 12/06/20 Rx release clonidine HCl 0.1 mg tablet 0.1 mg PO QHS #90 tab 11/03/20 12/06/20 Rx cyclobenzaprine 10 mg tablet 10 mg PO TID PRN #30 tab 11/03/20 12/06/20 Rx prednisone 20 mg tablet 20 mg PO DAILY #30 tab MDD 40 11/03/20 12/06/20 Rx dextroamphetamine 10 mg tablet 10 mg PO DAILY #90 tab MDD 10 11/11/20 12/06/20 Rx bupropion HCl [Wellbutrin SR] 100 mg PO DAILY 12/06/20 12/06/20 History duloxetine [Cymbalta] 60 mg PO DAILY MDD 90 12/06/20 12/06/20 History quetiapine [Seroquel] 50 mg PO HS 12/06/20 12/06/20 History Allergies Allergy/AdvReac Type Severity Reaction Status Date / Time influenza virus vaccine, Allergy ill with Verified 11/30/20 10:58 specific s/s for at least 2w venlafaxine Allergy Verified 12/03/20 15:20 codeine AdvReac Psychosis Verified 11/30/20 10:58 erythromycin base AdvReac Nausea Verified 11/30/20 10:58 lisinopril AdvReac feeling Verified 11/30/20 10:58 conklin, sweaty and jittery. Penicillins AdvReac Headache Verified 11/30/20 10:58 Exam Const General: cooperative and no acute distress Neck Neck: supple Resp Effort & Inspection: normal respiratory effort Auscultation: clear to auscultation bilaterally Cardio Rate: regular rate Rhythm: regular rhythm GI Inspection: obesity Palpation: soft Neuro General: patient alert, patient awake and patient oriented x3 Results Last Vital Signs Temp 36.6 C 12/06/20 09:03 Pulse 75 12/06/20 09:03 Resp 16 12/06/20 09:03 BP 152/94 H 12/06/20 09:03 Pulse Ox 95 12/06/20 09:03 COVID-19 Screening Have you, or household traveled for leisure in last 14 days?: No Had IN PERSON contact w/suspected or confirmed C-19 person: No
[2020-12-06] MEDS: Lactated Ringers 1,000 ML 80 ML IV (09:34)
[2020-12-06] MEDS: CIPROFLOXACIN 400 MG/200 ML BAG 200 MG IVPB (09:44)
--- NOTE | 2020-12-06 10:49 | W.PM.DSUDISC ---
Discharge Plan Disposition Patient Disposition: HOME Condition: Stable Discharge Details Reason For Visit: Incontinence Attending Provider: Steve Thomas Primary Care Provider: Ally Dalal Home Meds and New Rx's Prescriptions: No Action levothyroxine [Synthroid] 137 mcg tablet 137 mcg PO DAILY RF: 0 Hold Instructions: Home Medication placed on hold at Doctor's office albuterol sulfate [Ventolin HFA] 90 mcg/actuation HFA aerosol inhaler 2 puff Inhalation PRN PRN (Reason: shortness of breath or wheezing) Qty: 8.5 RF: 1 (DME) Flexichamber Spacer See Rx Instructions .ROUTE .MEDSUPPLY Qty: 1 RF: 0 clonidine HCl 0.1 mg tablet 0.1 mg PO QHS Qty: 90 RF: 3 cyclobenzaprine 10 mg tablet 10 mg PO TID PRN (Reason: muscle spasm) Qty: 30 RF: 1 prednisone 20 mg tablet 20 mg PO DAILY MDD 40 Qty: 30 RF: 0 (DME) Accu-Chek SmartView Test Strip 1 EACH strip 1 ea Miscellaneous BID Qty: 200 RF: 11 (DME) lancets [Accu-Chek Multiclix Lancet] 1 EACH misc 1 ea Miscellaneous BID Qty: 2 RF: 11 loratadine [Claritin] 10 MG tablet 10 mg PO DAILY Qty: 90 RF: 0 albuterol sulfate 0.63 mg/3 mL solution for nebulization 0.63 mg IH QID PRN (Reason: shortness of breath or wheezing) Qty: 75 RF: 0 medical marijuana PO RF: 0 metformin [Glucophage] 1,000 mg tablet 1,000 mg PO BID Qty: 180 RF: 3 omeprazole 40 mg capsule,delayed release(DR/EC) 40 mg PO DAILY Qty: 90 RF: 3 acyclovir 200 mg capsule 200 mg PO TID Qty: 270 RF: 3 magnesium gluconate 27.5 mg magne- sium (500 mg) tablet 27.5 mg PO DAILY Qty: 90 RF: 3 hydrochlorothiazide 25 mg tablet 25 mg PO DAILY Qty: 90 RF: 3 duloxetine 30 mg capsule,delayed release(DR/EC) 30 mg PO DAILY MDD 90 Qty: 90 RF: 1 dextroamphetamine 10 mg tablet 10 mg PO DAILY MDD 10 Qty: 90 RF: 0 Hold Instructions: Home Medication placed on hold at Doctor's office bupropion HCl [Wellbutrin SR] 100 mg tablet sustained-release 12 hr 100 mg PO DAILY RF: 0 duloxetine [Cymbalta] 60 mg capsule,delayed release(DR/EC) 60 mg PO DAILY MDD 90 RF: 0 quetiapine [Seroquel] 50 mg tablet 50 mg PO HS RF: 0 Discharge Instructions Additional Instructions: No appt needed but ask pt to call in 1 week with a progress report Activity:: Activity as Tolerated Shower/Bathe:: 24 hours Diet:: As Tolerated Discharge Orders Discharge Orders: Discharge Order (Routine); Ordered 12/06/20 Ordered By: Steve Thomas Discharge Data Discharge Comment: pt must void prior to discharge DS: Diagnosis Discharge Diagnosis (1) Mixed stress and urge urinary incontinence: Status: Acute
--- NOTE | 2020-12-06 10:52 | ROE_ITS ---
Date of service: 12/06/20 Time of Service: 10:53 Operative Note Operative Note DATE OF PROCEDURE: 12/06/20 PRE-OP DIAGNOSIS: Mixed urinary incontinence POST-OP DIAGNOSIS: same PROCEDURE: cystoscopy with transurethral injection of Coaptite SURGEON: Steve Thomas ANESTHESIA: other (general without intubation) ESTIMATED BLOOD LOSS: 0 PATHOLOGY: none sent COMPLICATIONS: None Patient was transported to: same day Patient's condition: stable Implants: One vial Coaptite injected at bladder neck Indications: This is a 55-year-old woman who has a history of mixed urinary incontinence. She has a combination of urgency, stress incontinence and intrinsic sphincter deficiency. She has been unable to tolerate anticholinergic medications. She presents for cystoscopy with injection of bulking agent at the bladder neck to treat the intrinsic sphincter deficiency component. Procedure Description: The patient was brought to the operating room on 12/06/2020. She was given a dose of preoperative IV antibiotics. After successful induction of general anesthesia without intubation, she was placed in the dorsolithotomy position. Her genitalia was prepped and draped. 2% Xylocaine jelly was instilled into the urethra to act as a local anesthetic. A 20 [place] urethrotome sheath was passed through the urethra into the bladder. The bladder neck was inspected with a 15 degree lens. Using the transurethral injection system, we injected a vial of Coaptite submucosally at the bladder neck. At the completion of the procedure, the bladder neck appeared closed at rest. We then drained the bladder with a 14 Canadian catheter. The catheter was removed. The patient tolerated the procedure well with no complications.
[2020-12-06] MEDS: Lidocaine 2% Jelly 6 ML SYR (10:56)
[2020-12-06] MEDS: Phenazopyridine 200 MG TAB PO (11:05)
[2020-12-06 11:30] VITALS: BP 142/86; PULSE 73; RESP 16; TEMP 36.5; O2SAT 99
== END 2020-12-06 11:46 | disposition home or self-care (01) ==
PROVIDERS: PCP Student in an Organized Health Care Education/Training Program; Visit Provider Urology
PROC: (CPT 51715; principal; 2020-12-06 10:30)
DX: N39.3 Stress incontinence (female) (male) (principal); N36.42 Intrinsic sphincter deficiency (ISD)
CPT/HCPCS: 51715; NC; J0744; J1885; J2250; J2405; J2704; L8606

== ENCOUNTER 2021-01-18 03:19 | Outpatient (CLI) | payer MEDICARE, MEDICAID, SELFPAY ==
[2021-01-18 12:02] LABS: TSH (W/Ref FT4) 0.08 uIU/mL (0.36-3.74)
[2021-01-18 12:27] LABS: FREE T4 1.38 ng/dL (0.76-1.46)
== END 2021-01-18 03:20 | disposition home or self-care (01) ==
PROVIDERS: PCP Student in an Organized Health Care Education/Training Program; Visit Provider Student in an Organized Health Care Education/Training Program
DX: F41.9 Anxiety disorder, unspecified (principal)
CPT/HCPCS: 36415; 84439; 84443

== ENCOUNTER 2021-03-10 09:40 | Emergency (ER) | payer MEDICARE, MEDICAID, SELFPAY ==
--- NOTE | 2021-03-10 09:45 | DI.RAD_ITS ---
EXAM: XR FOOT LT COMPLETE CLINICAL HISTORY: L heel injury, r/o acute fx/spur/fb. TECHNIQUE: 2D digital imaging was performed. COMPARISON: No exams were available for comparison FINDINGS: There is no evidence of acute fracture lines. There is no diastasis of the Lisfranc joint. There is a small ossified density measuring less than 1 millimeter adjacent to the lateral base of the 5th me tatarsal. This is at the insertion site of the peroneus brevis tendon. Correlation with site of ten derness is recommended. Accessory ossicles are noted lateral to the cuboid bone. No erosions. No degenerative changes. Small inferior calcaneal spur noted. IMPRESSION: DATA REPOSITORY: RADIATION DOSE DELIVERED:
[2021-03-10 09:49] VITALS: BP 140/88; PULSE 88; RESP 18; TEMP 36.2; O2SAT 97
--- NOTE | 2021-03-10 10:01 | ED.GENADUL_ITS ---
Discharge Plan Disposition Patient Disposition: HOME Condition: Stable Discharge Details Clinical Impression: Chronic pain of left heel Primary Care Provider: Ally Dalal ED Provider: Beatrice Ross Home Meds and New Rx's Prescriptions: Continued loratadine [Claritin] 10 mg tablet 10 mg PO DAILY PRNRF: 0 cholecalciferol (vitamin D3) 25 mcg (1,000 unit) capsule 25 mcg PO DAILY RF: 0 echinacea 500 mg capsule 760 mg PO DAILY RF: 0 black cohosh 540 mg capsule 20 mg PO DAILY RF: 0 metformin [Glucophage] 1,000 mg tablet 1,000 mg PO BID Qty: 180 RF: 3 omeprazole 40 mg capsule,delayed release(DR/EC) 40 mg PO DAILY Qty: 90 RF: 3 dextroamphetamine 10 mg tablet 10 mg PO DAILY RF: 0 Hold Instructions: Home Medication placed on hold at Doctor's office duloxetine [Cymbalta] 60 mg capsule,delayed release(DR/EC) 60 mg PO DAILY MDD 90 Qty: 90 RF: 0 duloxetine 30 mg capsule,delayed release(DR/EC) 30 mg PO DAILY MDD 90 Qty: 90 RF: 1 quetiapine [Seroquel] 100 mg tablet 100 mg PO QHS Qty: 90 RF: 0 albuterol sulfate [Ventolin HFA] 90 mcg/actuation HFA aerosol inhaler 2 puff Inhalation PRN PRN (Reason: shortness of breath or wheezing) Qty: 8.5 RF: 1 (DME) Flexichamber Spacer See Rx Instructions .ROUTE .MEDSUPPLY Qty: 1 RF: 0 clonidine HCl 0.1 mg tablet 0.1 mg PO QHS Qty: 90 RF: 3 cyclobenzaprine 10 mg tablet 10 mg PO TID PRN (Reason: muscle spasm) Qty: 30 RF: 1 prednisone 20 mg tablet 20 mg PO DAILY MDD 40 Qty: 30 RF: 0 albuterol sulfate 0.63 mg/3 mL solution for nebulization 0.63 mg IH QID PRN (Reason: shortness of breath or wheezing) Qty: 75 RF: 0 medical marijuana PO RF: 0 magnesium gluconate 27.5 mg magne- sium (500 mg) tablet 27.5 mg PO DAILY Qty: 90 RF: 3 hydrochlorothiazide 25 mg tablet 25 mg PO DAILY Qty: 90 RF: 3 levothyroxine 112 mcg tablet 112 mcg PO DAILY Qty: 90 RF: 1 Hold Instructions: Home Medication placed on hold at Doctor's office acyclovir 200 mg capsule 200 mg PO TID Qty: 270 RF: 3 Victoza 2-Usman 0.6 mg/0.1 mL (18 mg/3 mL) pen injector 1.2 mg subcut DAILY Qty: 36 RF: 3 (DME) blood sugar diagnostic Strip See Rx Instructions .ROUTE .MEDSUPPLY Qty: 100 RF: 3 (DME) lancets [OneTouch UltraSoft Lancets] Misc See Rx Instructions .ROUTE .MEDSUPPLY Qty: 200 RF: 3 (DME) NovoTwist 32 gauge x 1/5 needle See Rx Instructions .ROUTE .MEDSUPPLY Qty: 200 RF: 3 (DME) blood-glucose meter Kit See Rx Instructions .ROUTE .MEDSUPPLY Qty: 1 RF: 0 (DME) lancing device Misc See Rx Instructions .ROUTE .MEDSUPPLY Qty: 1 RF: 0 (DME) blood-glucose meter Kit See Rx Instructions .ROUTE .MEDSUPPLY Qty: 1 RF: 0 bupropion HCl [Wellbutrin SR] 100 mg tablet sustained-release 12 hr 100 mg PO DAILY RF: 0 Discharge Instructions Instructions: Plantar Fasciitis (ED), Heel Spur (ED) Additional Instructions: Your x-ray today noted a small heel spur but there was no evidence of any acute fracture. Rest, ice, and elevate the affected area as much as possible. Call the staffing and scheduling coordinator office today to schedule follow-up appointment for reevaluation of your chronic heel pain. Return immediately to the emergency department if you develop any worsening or new concerning symptoms. Referrals: Calin Toro DPM [[facility] STAFF PHYSICIAN] - Discharge Data Discharge Physician: Beatrice Ross Medical Decision Making 55-year-old female presents with left heel pain for the past 4 months after stepping on in cartridge and now worse for the past several weeks and walking to work in the warmer weather. Left medial heel tender to palpation. There is no evidence of trauma or cellulitis. She is neurovascularly intact. No deformity. She does have a history of plantar fasciitis so this may be a compounding factor. Patient referred for x-rays which noted a heel spur but no other acute findings. She was placed in [place] wrap for comfort. She was advised to rest, ice, elevate. She was given staffing and scheduling coordinator information for follow-up. Usual and customary return precautions given prior to discharge. Medical Records Medical records reviewed: Yes I reviewed the patient's medical records. Imaging Data Radiologic Study: Radiologist's impression: XR FOOT LT COMPLETE CLINICAL HISTORY: L heel injury, r/o acute fx/spur/fb. TECHNIQUE: 2D digital imaging was performed. COMPARISON: No exams were available for comparison FINDINGS: There is no evidence of acute fracture lines. There is no diastasis of the Lisfranc joint. There is a small ossified density measuring less than 1 millimeter adjacent to the lateral base of the 5th metatarsal. This is at the insertion site of the peroneus brevis tendon. Correlation with site of tenderness is recommended. Accessory ossicles are noted lateral to the cuboid bone. No erosions. No degenerative changes. Small inferior calcaneal spur noted. HPI General Mode of arrival: ambulatory . Date/Time Provider Initiated Documentation: 03/10/21 09:42 . Limitations to Documentation: no limitations . Information obtained by: patient . HPI Narrative: Patient is a 55-year-old female presents with left heel pain for the past 4 months after stepping on an in cartridge. She states since the weather became warmer she has been walking to work and now she has had increased pain for the last several weeks. She states she was seen by physical therapy this week who taped her left heel and advised her to come to the ER for further evaluation. Patient states she has not had medical care or an x-ray for her left heel since the onset. Related Data Home Medications Medication Instructions Recorded Confirmed albuterol sulfate 0.63 mg/3 mL 0.63 mg IH QID PRN #75 ml 08/23/18 03/10/21 solution for nebulization medical marijuana PO 08/28/19 12/10/20 albuterol sulfate 90 mcg/actuation 2 puff INHALATION PRN PRN #8.5 gm 01/17/20 03/10/21 aerosol inhaler hydrochlorothiazide 25 mg tablet 25 mg PO DAILY #90 tab 07/22/20 03/10/21 magnesium gluconate 27.5 mg 27.5 mg PO DAILY #90 tab 07/22/20 03/10/21 magnesium (500 mg) tablet inhalational spacing device #1 ea 09/11/20 03/10/21 clonidine HCl 0.1 mg tablet 0.1 mg PO QHS #90 tab 11/03/20 03/10/21 cyclobenzaprine 10 mg tablet 10 mg PO TID PRN #30 tab 11/03/20 03/10/21 prednisone 20 mg tablet 20 mg PO DAILY #30 tab MDD 40 11/03/20 03/10/21 bupropion HCl [Wellbutrin SR] 100 mg PO DAILY 12/06/20 03/10/21 black cohosh 540 mg capsule 20 mg PO DAILY 12/10/20 03/10/21 cholecalciferol (vitamin D3) 25 25 mcg PO DAILY 12/10/20 03/10/21 mcg (1,000 unit) capsule echinacea 500 mg capsule 760 mg PO DAILY cap 12/10/20 03/10/21 loratadine 10 mg tablet 10 mg PO DAILY PRN tab-cap 12/10/20 03/10/21 metformin 1,000 mg tablet 1,000 mg PO BID #180 tab 12/12/20 03/10/21 omeprazole 40 mg capsule,delayed 40 mg PO DAILY #90 tab-cap 12/12/20 03/10/21 release dextroamphetamine 10 mg tablet 10 mg PO DAILY tab 01/07/21 03/10/21 duloxetine 30 mg capsule,delayed 30 mg PO DAILY #90 cap MDD 90 01/07/21 03/10/21 release duloxetine 60 mg capsule,delayed 60 mg PO DAILY #90 cap MDD 90 01/07/21 03/10/21 release quetiapine 100 mg tablet 100 mg PO QHS #90 tab 01/07/21 03/10/21 levothyroxine 112 mcg tablet 112 mcg PO DAILY #90 tab 01/23/21 03/10/21 acyclovir 200 mg capsule 200 mg PO TID #270 cap 01/27/21 03/10/21 liraglutide 0.6 mg/0.1 mL (18 mg/3 1.2 mg SUBCUT DAILY #36 ml 01/27/21 03/10/21 mL) subcutaneous pen injector blood sugar diagnostic #100 ea 01/28/21 03/10/21 lancets #200 ea 02/23/21 03/10/21 pen needle, diabetic 32 gauge x #200 ea 02/23/21 03/10/21 15 blood-glucose meter #1 ea 02/24/21 03/10/21 blood-glucose meter #1 ea NS 03/04/21 03/10/21 lancing device #1 ea 03/04/21 03/10/21 Previous Rx's Medication Instructions Recorded albuterol sulfate 0.63 mg/3 mL 0.63 mg IH QID PRN #75 ml 08/23/18 solution for nebulization albuterol sulfate 90 mcg/actuation 2 puff INHALATION PRN PRN #8.5 gm 01/17/20 aerosol inhaler hydrochlorothiazide 25 mg tablet 25 mg PO DAILY #90 tab 07/22/20 magnesium gluconate 27.5 mg 27.5 mg PO DAILY #90 tab 07/22/20 magnesium (500 mg) tablet inhalational spacing device #1 ea 09/11/20 clonidine HCl 0.1 mg tablet 0.1 mg PO QHS #90 tab 11/03/20 cyclobenzaprine 10 mg tablet 10 mg PO TID PRN #30 tab 11/03/20 prednisone 20 mg tablet 20 mg PO DAILY #30 tab MDD 40 11/03/20 metformin 1,000 mg tablet 1,000 mg PO BID #180 tab 12/12/20 omeprazole 40 mg capsule,delayed 40 mg PO DAILY #90 tab-cap 12/12/20 release duloxetine 30 mg capsule,delayed 30 mg PO DAILY #90 cap MDD 90 01/07/21 release duloxetine 60 mg capsule,delayed 60 mg PO DAILY #90 cap MDD 90 01/07/21 release quetiapine 100 mg tablet 100 mg PO QHS #90 tab 01/07/21 levothyroxine 112 mcg tablet 112 mcg PO DAILY #90 tab 01/23/21 acyclovir 200 mg capsule 200 mg PO TID #270 cap 01/27/21 liraglutide 0.6 mg/0.1 mL (18 mg/3 1.2 mg SUBCUT DAILY #36 ml 01/27/21 mL) subcutaneous pen injector blood sugar diagnostic #100 ea 01/28/21 lancets #200 ea 02/23/21 pen needle, diabetic 32 gauge x #200 ea 02/23/21 15 blood-glucose meter #1 ea NS 03/04/21 Allergies Allergy/AdvReac Type Severity Reaction Status Date / Time influenza virus vaccine, Allergy ill with Verified 03/10/21 09:58 specific s/s for at least 2w venlafaxine Allergy Verified 03/10/21 09:58 codeine AdvReac Psychosis Verified 03/10/21 09:58 erythromycin base AdvReac Nausea Verified 03/10/21 09:58 lisinopril AdvReac feeling Verified 03/10/21 09:58 conklin, sweaty and jittery. Penicillins AdvReac Headache Verified 03/10/21 09:58 General Stated Complaint: Orthopedic MATT: 4 Review of Systems All systems reviewed & are unremarkable except as noted in HPI and below Musculoskeletal Comments: L heel pain PFSH Medical History Abdominal pannus recommending pannilectomy (Dr. Fang/[facility]) Acute upper back pain 2' increased heavy lifting, mopping @ work. Chronic issue with acute complaints 2' overuse Depression (11/02/17) Long Hx with exacerbating event just over a year ago. Moving here from [place] is a helpful move. Quet used for just near a year. admission 01/19/16-01/26/16 suicidal ideation/depression Former tobacco use smoked 1 ppd quit and pt states she did not smoke for 30 yrs. Low Scan Chest ct not indicated. 08/20/19 cgc History of colon polyps Hx estrogen therapy Has greatly helped with depression .. D/C'd 04/2020 by [facility] 2' high BPs. Doing terribly with mood/depression, 05/26/20. Pessary maintenance Urinary hesitancy Surgical History Colonoscopy w/ Bx (07/22/13) Polyps, therefore 5 yr FU Elbow Surgery History of surgery Neck surgery Hysterectomy (10/21/10) Fibroids Knee Surgery knee reconstruction Open Carpal Tunnel release (01/13/13) Bilateral [place] Teeth (01/29/18) Family History Mother Hyperthyroidism Mental health problem Daughter Mental health problem Social History Smoking/Tobacco Use Status: Former Tobacco Use Quit Date: 11/19/89 Smoking risk assessment performed?: Yes Alcohol Intake: current Alcohol Intake frequency: holidays/special occasions only Drug use: Daily Substance use type: marijuana Household members: none Number of Children: 2 number of grandchildren: 3 Communication Needs: None current occupation: works at [employer] What type of physical activity do you participate in: walking Frequency: 1-2 times per week Seatbelt use: always Drive intox or ride w/intox charter driver: No Working smoke detector in home: Yes Fire extinguisher in home: Yes Carbon monox detector in home: Yes Do you feel safe at home: Yes Do you feel safe in your relationship?: Yes Additional Social history: alone Exam Const General: cooperative and no acute distress HENMT Head: normal to inspection Eyes General: appearance normal, both eyes and all related structures EOM: EOM intact bilaterally Neck Neck: normal visual inspection Chest Chest: normal inspection of the chest Resp Effort & Inspection: normal respiratory effort and able to speak in complete sentences Cardio Rate: regular rate Neuro General: patient alert, patient awake and patient oriented x3 Cognition: normal cognition Speech: speech normal Motor: muscle tone normal throughout Sensory Exam: no sensory deficits noted Extrem Ankle/foot/toe images: 1. Tenderness to palpation to left medial heel. There is no evidence of erythema, edema, ecchymosis, induration, fluctuance, crepitus, rash or lesions. Plantar surface of heel nontender. Other: Remainder of plantar surface of foot none tender. Left ankle nontender without evidence of trauma. Left DP/PT pulses intact. Normal range of motion to left foot and ankle. Psych Appearance: grossly normal Mental Status: mental status grossly normal Speech and Movement: speech and movement normal Affect: normal affect Course Vital Signs Vital signs: Vital Signs Temperature 97.2 F L 03/10/21 09:49 Pulse 88 03/10/21 09:49 Respiratory Rate 18 03/10/21 09:49 Blood Pressure 140/88 03/10/21 09:49 Pulse Oximetry 97 03/10/21 09:49 Temperature 97.2 F L 03/10/21 09:49 Temperature Source Temporal Artery Scan 03/10/21 09:49 Pulse 88 03/10/21 09:49 Respiratory Rate 18 03/10/21 09:49 Respiratory Effort Non-Labored 03/10/21 09:55 Blood Pressure 140/88 03/10/21 09:49 Blood Pressure Position Sitting 03/10/21 09:49 Pulse Oximetry 97 03/10/21 09:49 Oxygen Delivery Method Room Air 03/10/21 09:49 Oxygen Flow Rate 0 03/10/21 09:49 Pain Level 10 03/10/21 09:56
== END 2021-03-10 11:04 | disposition home or self-care (01) ==
PROVIDERS: Emergency Provider Physician Assistant; PCP Student in an Organized Health Care Education/Training Program
DX: S99.822A Other specified injuries of left foot, initial encounter (principal); W22.8XXA Striking against or struck by other objects, initial encounter; M77.32 Calcaneal spur, left foot
CPT/HCPCS: 99283; 73630; 99282

== ENCOUNTER 2021-03-30 02:38 | Outpatient (CLI) | payer MEDICARE, MEDICAID, SELFPAY ==
[2021-03-31 15:26] LABS: COVID-19 RT-PCR UVMMC Result Negative (Negative)
== END 2021-03-30 02:39 | disposition home or self-care (01) ==
LOC: LBO 02:38
PROVIDERS: PCP Student in an Organized Health Care Education/Training Program; Visit Provider Nurse Practitioner
DX: Z20.822 Contact with and (suspected) exposure to COVID-19 (principal)
CPT/HCPCS: U0003; U0005

== ENCOUNTER 2021-05-06 16:28 | Outpatient (REF) | payer MEDICARE, MEDICAID, SELFPAY ==
[2021-05-08 13:28] LABS: COVID-19 RT-PCR UVMMC Result Negative (Negative)
== END 2021-05-06 16:29 | disposition home or self-care (01) ==
LOC: LBN 16:28
PROVIDERS: PCP Student in an Organized Health Care Education/Training Program; Referring Provider Nurse Practitioner Family; Visit Provider Nurse Practitioner Family
DX: Z20.822 Contact with and (suspected) exposure to COVID-19 (principal)
CPT/HCPCS: U0003; U0005

== ENCOUNTER 2021-08-09 00:39 | Outpatient (CLI) | payer MEDICARE, MEDICAID, SELFPAY ==
--- OUTSIDE RECORDS SUMMARY | 2021-08-09 00:42 | XMS_ITS ---
:1965 Author Care Team Providers Name Role Phone [facility] Primary Care Provider [phone] MUKUL PRICE Primary Care Provider [phone] Allergies Code Code System Name Reaction Severity Status Onset 2670 RxNorm Codeine ? ? Active ? 592548 RxNorm Cymbalta ? ? Active ? 4052 RxNorm Erythromycin Base Nausea ? Active ? Penicillins ? ? Active ? 85088 RxNorm Venlafaxine ? ? Active ? Medications Name Status Start Date Stop Date ? ? acyclovir 200 mg capsule Active ? Not kira ilable Take 1 capsule every 4 hours by oral route. bisacodyl 5 mg tablet,delayed release Completed ? 02/24/2020 duloxetine 60 mg capsule,delayed release Active ? Not available Take 1 capsule every day by oral route. metformin Active ? Not available 100mg twice a day omeprazole 40 mg capsule,delayed release Active ? Not available Take 1 capsule every day by oral route. polyethylene glycol 3350 17 gram/dose Completed ? 02/24/2020 oral powder quetiapine Active ? Not available 50 mg daily Synthroid Active ? Not available Problems Name Status Onset Date Source ? 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 Hypothyroidism Active ? ? Obstructive Sleep Apnea Syndrome Active ? ? Fibromyalgia Active ? ? Procedures None recorded. Results Lab Results None recorded. Past Encounters 11/25/2020 Obstructive Sleep Apnea Syndrome; Psycho physiologic Insomnia Vandana Patino NP: [address] [place] [phone], Ph. 06/07/2020 Obstructive Sleep Apnea Syndrome; Psycho physiologic Insomnia Vandana Patino NP: [address] [place] [phone], Ph. 02/24/2020 Obstructive Sleep Apnea Syndrome; Psycho physiologic Insomnia Vandana Patino NP: [address] [place] [phone], Ph. Social History Tobacco Smoking Status Former Smoker (1 pack per a day) No hernesto: quit 2009 Vaccine List None recorded. Plan of Care Reminders Provider Appointments None ? ? recorded. Lab None ? ? recorded. Referral None ? ? recorded. Procedures None ? ? recorded. Surgeries None ? ? recorded. Imaging None ? ? recorded. Vitals 11/25/2020 10:30AM Office 30 Height Weight BMI Blood Pressure 166.37 cm 101.15 kg 36.5 kg/m2 132/80 mm[Hg] 06/07/2020 09:45AM Office 30 Height Weight BMI Blood Pressure 166.37 cm 105.69 kg 38.2 kg/m2 142/78 mm[Hg] 02/24/2020 12:30PM New Patient 45 Height Weight BMI 166.37 cm 97.07 kg 35.1 kg/m2
--- NOTE | 2021-08-09 06:45 | DI.MRI_ITS ---
Exam(s) MR CERVICAL SPINE WO EXAM: MR CERVICAL SPINE WO CLINICAL HISTORY: NECK MUSCLE STRAIN,C SPINE DEGENERATION,PAIN,S16.1XXA,M47.812 TECHNIQUE: Multiplanar multisequence MRI of the cervical spine was performed without intravenous con trast. COMPARISON: CR XR CERVICAL SPINE COMP 4-5V from 09/22/2020 CR XR CERVICAL SPINE COMP 4-5V from 09/22/2020 FINDINGS: BONES: Vertebral body heights are maintained. Intervertebral disc spaces are normal. Alignment is nor mal. Bone marrow signal intensity is within normal limits. Findings of anterior cervical fusion from C4 through C7. This causes artifact in the mid and lower cervical spine. CERVICAL CORD: Craniovertebral junction is unremarkable. The cervical cord is normal size and signal intensity. SOFT TISSUES: Unremarkable. C2-3: No disc herniation or bulge is identified. No significant central spinal canal or neural forami nal stenosis. Mild uncovertebral joint hypertrophy on the left. C3-4: Mild prominence of the osteophyte disc complex. There are hypertrophic changes of the uncovert ebral joints bilaterally. No significant central spinal canal stenosis. Mild narrowing of the neura l foramen bilaterally, right greater than left. C4-5: No disc herniation or bulge is identified. No significant central spinal canal or neural forami nal stenosis C5-6: No disc herniation or bulge is identified. No significant central spinal canal or neural forami nal stenosis C6-7: No disc herniation or bulge is identified. No significant central spinal canal or neural forami nal stenosis C7-T1: No disc herniation or bulge is identified. No significant central spinal canal or neural deo inal stenosis IMPRESSION: 1. Findings of an anterior cervical fusion from C4 through C7 which causes artifact in the mid lower cervical spine. 2. Mild prominence of the osteophyte disc complex at C3-C4 in addition to the hypertrophic changes of the uncovertebral joints which cause mild bilateral neural foraminal narrowing. DATA REPOSITORY:
== END 2021-08-09 00:59 ==
PROVIDERS: PCP Student in an Organized Health Care Education/Training Program; Visit Provider Student in an Organized Health Care Education/Training Program
DX: M47.812 Spondylosis without myelopathy or radiculopathy, cervical region (principal); S16.1XXA Strain of muscle, fascia and tendon at neck level, initial encounter; M43.22 Fusion of spine, cervical region
CPT/HCPCS: 72141

== ENCOUNTER 2021-08-19 13:24 | Outpatient (CLI) | payer MEDICARE, MEDICAID, SELFPAY ==
--- NOTE | 2021-08-19 | DI.RAD_ITS ---
Exam(s) XR ANKLE LT COMPLETE EXAM: XR ANKLE LT COMPLETE CLINICAL HISTORY: PAIN IN LT ANKLE, M25.572 TECHNIQUE: 2D digital imaging was performed of the left ankle. Three images were obtained. AP, lat eral and oblique views were obtained. COMPARISON: No exams were available for comparison FINDINGS: BONES: No acute fracture is present. No bony destructive lesion is seen. There is a small plantar lisa caneal spur. There is a small enthesophyte at the posterior calcaneus. JOINTS:The ankle mortise is normally aligned. SOFT TISSUE: Mild soft tissue swelling. IMPRESSION: No acute fracture or dislocation. DATA REPOSITORY: RADIATION DOSE DELIVERED:
== END 2021-08-19 13:44 ==
PROVIDERS: PCP Student in an Organized Health Care Education/Training Program; Visit Provider Physician Assistant Medical
DX: M25.572 Pain in left ankle and joints of left foot (principal)
CPT/HCPCS: 73610

== ENCOUNTER 2021-10-25 00:45 | Outpatient (CLI) | payer MEDICARE, MEDICAID, SELFPAY ==
[2021-10-25 08:55] VITALS: BP 147/90; PULSE 65; RESP 18; TEMP 36.5; O2SAT 95
[2021-10-25] MEDS: Normal Saline 500 ML 30 ML IV (09:30)
[2021-10-25 09:33] VITALS: BP 149/86; PULSE 71; RESP 18; TEMP 35.9; O2SAT 96
[2021-10-25] MEDS: Normal Saline Flush 10 ML SYR IVP (09:49)
[2021-10-25 10:43] VITALS: BP 163/89
[2021-10-25 10:45] VITALS: BP 152/102; PULSE 65; RESP 16; TEMP 36.4; O2SAT 97
== END 2021-10-25 00:46 | disposition home or self-care (01) ==
LOC: INF 00:47
PROVIDERS: PCP Student in an Organized Health Care Education/Training Program; Visit Provider Family Medicine
DX: U07.1 COVID-19 (principal)
CPT/HCPCS: 96365

== ENCOUNTER → 2022-04-13 09:44 | Outpatient (BNVA) | payer MEDICARE, MEDICAID, SELFPAY | PROVIDERS: PCP Student in an Organized Health Care Education/Training Program; Referring Provider Student in an Organized Health Care Education/Training Program; Visit Provider Nurse Practitioner Gerontology | DX: N39.3 Stress incontinence (female) (male) (principal); R39.11 Hesitancy of micturition | CPT/HCPCS: 51798; 81003; 99214 ==

== ENCOUNTER 2022-04-13 13:19 | Outpatient (REF) | payer MEDICARE, MEDICAID, SELFPAY | END 2022-04-13 13:20 | disposition home or self-care (01) | LOC: LBN 13:19 | PROVIDERS: PCP Student in an Organized Health Care Education/Training Program; Visit Provider Nurse Practitioner Gerontology | DX: R39.11 Hesitancy of micturition (principal); R32 Unspecified urinary incontinence | CPT/HCPCS: 87086 ==

== ENCOUNTER 2022-05-12 01:47 | Outpatient (CLI) | payer MEDICARE, MEDICAID, SELFPAY ==
[2022-05-12 10:49] LABS: ALT 34 U/L (14-59); AST 21 U/L (15-37); Albumin 3.7 g/dL (3.4-5.0); Alkaline Phosphatase 71 U/L (46-116); Anion Gap 3.2 mmol/L (3-11); BUN 20 mg/dL (7-18); Bilirubin, Total 0.6 mg/dL (0.2-1.0); CO2 34.8 mmol/L (21.0-32.0); CREATININE 0.9 mg/dL (0.55-1.02); Calcium 9.4 mg/dL (8.5-10.1); Calculated LDL 134 mg/dL (<100); Chloride 103 mmol/L (98-107); Cholesterol 232 mg/dL (<200); Glucose 100 mg/dL (74-106); HDL Cholesterol 77 mg/dL (40-60); Potassium 3.6 mmol/L (3.5-5.1); Sodium 141 mmol/L (136-145); TSH 3.41 uIU/mL (0.36-3.74); Total Protein 7.3 g/dL (6.4-8.2); Triglyceride 107 mg/dL (<150)
[2022-05-12 11:15] LABS: FREE T4 1.14 ng/dL (0.76-1.46)
[2022-05-12 21:07] LABS: T3, Total 199 ng/dL (97-169)
== END 2022-05-12 01:48 | disposition home or self-care (01) ==
LOC: LBO 01:53
PROVIDERS: PCP Student in an Organized Health Care Education/Training Program; Visit Provider Student in an Organized Health Care Education/Training Program
DX: E03.9 Hypothyroidism, unspecified (principal); I10 Essential (primary) hypertension
CPT/HCPCS: 36415; 80053; 80061; 84439; 84443; 84480

== ENCOUNTER → 2022-06-29 00:51 | Outpatient (CLI) | payer MEDICARE, MEDICAID, SELFPAY ==
--- NOTE | 2022-06-29 12:23 | DI.MAMMO_ITS ---
Exam(s) MAMMO SCREENING EXAM: MAMMO SCREENING CLINICAL HISTORY: screening,Z12.39. TECHNIQUE: Bilateral full field digital CC and MLO mammographic images were obtained with 3D tomosyn thesis and utilizing computer aided detection (CAD). COMPARISON: Prior mammograms were reviewed, the most recent being September 2019 and April 2020.. Prior ultrasound examinations were also reviewed. FINDINGS: There has been no significant change in the appearance and distribution of the fibroglandular tissue. There are no CAD designations. There are no new spiculated masses nor malignant appearing microcalcification groups. There is no significant architectural distortion nor skin thickening-retraction. IMPRESSION: No radiographic evidence of malignancy. BI-RADS Category 1 - Negative Breast Density - Category B - Scattered areas of fibroglandular density Breast density Category C or D implies that the patient has dense breast tissue. Dense breast tissue can make it harder to find cancer on a mammogram. Dense breast tissue is also associated with an incr eased risk of breast cancer. This information about the result of the mammogram report was provided to the patient to raise their awareness. Use this report when you speak with the patient about their risks for breast cancer, which includes their family history. At that time, you may recommend additional screening tests (Ultrasoun d or MRI) as these tests may add significant information. A negative radiographic report should not delay biopsy if a dominant or clinically suspicious mass is present. Up to ten percent of cancers are not identified on mammography. A negative report may reinforce clinical impression. Adenosis and dense breasts may obscure an underlying neoplasm. False positive reports average 6 to 10%. Patient will receive a letter notifying them of these results.
== END ==
PROVIDERS: PCP Student in an Organized Health Care Education/Training Program; Visit Provider Student in an Organized Health Care Education/Training Program
DX: Z12.31 Encounter for screening mammogram for malignant neoplasm of breast (principal)
CPT/HCPCS: 77063; 77067

== ENCOUNTER 2022-07-11 03:25 | Outpatient (CLI) | payer MEDICARE, MEDICAID, SELFPAY ==
[2022-07-11 10:34] LABS: TSH (W/Ref FT4) 0.68 uIU/mL (0.36-3.74)
== END 2022-07-11 03:26 | disposition home or self-care (01) ==
LOC: LBO 03:25
PROVIDERS: PCP Student in an Organized Health Care Education/Training Program; Visit Provider Student in an Organized Health Care Education/Training Program
DX: E03.9 Hypothyroidism, unspecified (principal)
CPT/HCPCS: 36415; 84443

== ENCOUNTER 2022-07-18 11:28 | Outpatient (CLI) | payer MEDICARE, MEDICAID, SELFPAY ==
--- NOTE | 2022-07-18 11:15 | RT.EKG_ITS ---
APPROVED REPORT Exam: Resting ECG Reason for Exam: Medication monitoring Patient Location: O HR:73 bpm ECG Measurements Heart Rate 73 AXIS TN 149 P 45 QRSd 94 QRS -2 QT 417 T 46 QTc 460 Conclusion Sinus rhythm...normal P axis, V-rate 50- 99 Normal Electrocardiogram
== END 2022-07-18 11:29 | disposition home or self-care (01) ==
LOC: DI.KIM 11:33
PROVIDERS: PCP Student in an Organized Health Care Education/Training Program; Visit Provider Student in an Organized Health Care Education/Training Program
DX: Z51.81 Encounter for therapeutic drug level monitoring (principal); Z79.899 Other long term (current) drug therapy
CPT/HCPCS: 93010

== ENCOUNTER 2023-01-26 09:58 | Emergency (ER) | payer MEDICARE, MEDICAID, SELFPAY ==
[2023-01-26 10:01] VITALS: BP 128/72; PULSE 104; RESP 18; TEMP 36.3; O2SAT 97
--- NOTE | 2023-01-26 10:22 | ED.GENADUL_ITS ---
Discharge Plan Disposition Patient Disposition: Home Condition: Stable Discharge Details Clinical Impression: Abdominal pain Primary Care Provider: Ally Dalal ED Provider: Melissa Simpson Home Meds and New Rx's Prescriptions: Continued loratadine [Claritin] 10 mg tablet 10 mg PO DAILY PRN cholecalciferol (vitamin D3) 25 mcg (1,000 unit) capsule 25 mcg PO DAILY black cohosh 540 mg capsule 20 mg PO DAILY gjzwvzpx-wjenmhlft-YJ 3.5-10,000-1 mg/mL-unit/mL-% drops,suspension 4 drp otic (ear) Q8H 10 Days Qty: 10 1RF Rx Instructions: Trial for itching, inflamed ear canal (DME) blood sugar diagnostic Strip See Rx Instructions .ROUTE .MEDSUPPLY Qty: 100 3RF Rx Instructions: ONE touch test strips E11.9 to test blood sugars bid due to uncontrolled dm, goal AIC <7 (DME) pen needle, diabetic 32 gauge x 1/5 needle See Rx Instructions .ROUTE .MEDSUPPLY Qty: 100 3RF Rx Instructions: As directed for E11.9 to maintain A1C under 7%; adm daily use dextroamphetamine sulfate 10 mg tablet 10 mg PO DAILY MDD 10 Qty: 28 0RF Hold Instructions: Home Medication placed on hold at Doctor's office magnesium gluconate 27.5 mg magne- sium (500 mg) tablet 27.5 mg PO DAILY Qty: 90 3RF nystatin 100,000 unit/gram ointment 1 applic topical BID Qty: 30 1RF Rx Instructions: apply to pannus line zinc oxide 20 % ointment 1 applic topical BID-QID PRN (Reason: skin irritation; intertrigo) Qty: 60 1RF Rx Instructions: Re-start skin fold treatments (DME) Flexichamber Spacer See Rx Instructions .ROUTE .MEDSUPPLY Qty: 1 0RF Rx Instructions: As directed (DME) lancets [OneTouch UltraSoft Lancets] Misc See Rx Instructions .ROUTE .MEDSUPPLY Qty: 200 3RF Rx Instructions: for One touch Lite meter E11.9 to test blood sugars bid due to uncontrolled dm, goal AIC <7 (DME) blood-glucose meter [OneTouch Ultra2 Meter] Kit See Rx Instructions .ROUTE .MEDSUPPLY Qty: 1 0RF Rx Instructions: to check BS bid to maintain A1c <7.0 Dx:E11.9 albuterol sulfate [Ventolin HFA] 90 mcg/actuation HFA aerosol inhaler 2 puff Inhalation PRN PRN (Reason: shortness of breath or wheezing) Qty: 8.5 1RF Myrbetriq 25 mg tablet extended release 24 hr 25 mg PO DAILY Qty: 28 0RF Rx Instructions: samples quetiapine 100 mg tablet 100 mg PO QHS Qty: 90 5RF Rx Instructions: Stay with 100mg clonidine HCl 0.1 mg tablet 0.1 mg PO QHS Qty: 90 3RF Hold Instructions: Home Medication placed on hold at Doctor's office albuterol sulfate 0.63 mg/3 mL solution for nebulization 0.63 mg IH QID PRN (Reason: shortness of breath or wheezing) Qty: 75 0RF Rx Instructions: Short term Rx for recent bronchitis... medical marijuana PO (DME) lancing device Misc See Rx Instructions .ROUTE .MEDSUPPLY Qty: 1 Rx Instructions: For DM E11.9 to maintain A1C < 7. Pt uses One Touch lancets (DME) lancets [Lancets,Thin] Misc See Rx Instructions .ROUTE .MEDSUPPLY Qty: 100 Rx Instructions: Dispense One Touch delica plus lancets To check BS bid to maintain A1c <7. Dx:E11.9 lorazepam [Ativan] 0.5 mg tablet 0.5 mg PO DAILY PRN (Reason: anxiety) Qty: 3 0RF Hold Instructions: Home Medication placed on hold at Doctor's office Rx Instructions: Take (1) tab in am, and (1-2) tabs @ time of MRI. hydrochlorothiazide 25 mg tablet 25 mg PO DAILY Qty: 90 3RF duloxetine [Cymbalta] 60 mg capsule,delayed release(DR/EC) 60 mg PO DAILY MDD 90 Qty: 90 3RF Rx Instructions: 60+30 Victoza 3-Usman 0.6 mg/0.1 mL (18 mg/3 mL) pen injector 1.8 mg subcut DAILY Qty: 9 3RF levothyroxine [Synthroid] 112 mcg tablet 112 mcg PO DAILY Qty: 90 1RF Hold Instructions: Home Medication placed on hold at Doctor's office omeprazole 40 mg capsule,delayed release(DR/EC) 40 mg PO DAILY Qty: 90 3RF metformin 1,000 mg tablet 1,000 mg PO BID Qty: 180 3RF acyclovir 200 mg capsule 200 mg PO TID Qty: 270 3RF duloxetine 30 mg capsule,delayed release(DR/EC) 30 mg PO DAILY MDD 90 Qty: 90 0RF Rx Instructions: 30+60 losartan 25 mg tablet See Rx Instructions .ROUTE .COMPLEX Qty: 90 1RF Dose Instruction: TAKE 1 TABLET BY MOUTH DAILY MAY CHANGE TO COMBINATION PILL Rx Instructions: TAKE 1 TABLET BY MOUTH DAILY MAY CHANGE TO COMBINATION PILL Discharge Instructions Instructions: Abdominal Pain (ED) Additional Instructions: CT shows no evidence of blood clot in your lung, there is a small amount of fluid surrounding the catheter this can be something called a seroma which is expected after this type of surgery. I did speak with the doctor on-call Dr. Mccarthy with plastics at [facility]. They are aware of your visit here today. Please continue to keep your previously scheduled appointment. Please call the surgeon's office if you have any worsening redness, fever chills or worsening bloody drainage from the site. Follow up with primary care provider in 3-5 days. Return to ED sooner if any worsening or concerns. Increase oral fluids. Please take Tylenol or Ibuprofen with food every 4-6 hours as needed for pain and swelling. Referrals: Tyrel Fang Jr [ NON-[facility] STAFF PHYSICIAN] - 5 days Medical Decision Making 57-year-old female presents to the ER with a chief complaint of abdominal pain and bloody drainage from her MATHEW drain. Patient is status post panniculectomy which was done at [facility] in December. Patient reports that beginning on night she noticed a large amount of drainage around the incision site of the insertion of the MATHEW catheter, she reports bloody drainage. She also reports gradually worsening abdominal pain. She does have a small BB 3 to 5 cc of sanguinous drainage in the MATHEW drain, and the tube there is yellowish fluid that is blood-tinged. No gross bleeding noted no erythema surrounding the insertion site. She does have some erythema noted just medially on the incision in the right lower quadrant. She did not call the surgeon's office this morning. IV CBC CMP ordered. Will consult with Dr. Fang at [facility]. 1042: [facility] transfer center called to consult with Dr. Fang 1050: Spoke with Dr. Mccarthy he recommends further workup due to pain and increased heart rate, he also mentioned to rule out DVT. 1119: Spoke again with Dr. Mccarthy who requests a call back after work up. CT chest Abd Pelvis ordered, patient complaining of pain tramadol p.o. ordered. 1319: CT Negative for PE, There is some nonspecific fluid, surounding the catheter. 1320: Dr. Mccarthy paged for an update, images pushed. 1438: Spoke with Dr. Mccarthy again with plastics at [facility] regarding CT result I did relay the results of that and her updated vital signs. He is okay to have patient follow-up in clinic as previously scheduled. I did relay the labs with him once more and he verbalized understanding. Spoke with patient regarding CT results and plan of care she verbalized unders tanding. I did discuss strict return instructions and instructed her to contact her surgeon's office if any additional complaints. She verbalized understanding. Patient remained hemodynamically stable alert and oriented throughout the remainder of her stay. This text was generated using [employer] dictation system, please disregard any oddities of phrase or misspellings. Medical Records Medical records reviewed: Yes I reviewed the patient's medical records. Imaging Data Radiologic Study: Imaging: CT Scan Radiologist's impression: CHEST: Tracheobronchial tree: Patent where visualized. Pulmonary parenchyma: No consolidation or dominant measurable mass. No architectural distortion. Pulmonary Arteries: No evidence of filling defect to suggest pulmonary emboli. Mediastinum and Marjorie: No dominant adenopathy or fluid collection. The esophagus is unremarkable. There is a small hiatal hernia. Visualized thyroid gland: Unremarkable. Pleura: No effusion or pneumothorax. Heart: The heart is not dilated. No coronary artery calcifications are seen. No pericardial effusion. Aorta: Thoracic aorta non-dilated. No evidence of dissection. Bones: Within normal limits for the patient's age. Anterior cervical disc fusion is seen. Soft tissues: Unremarkable. ABDOMEN: Liver: There is fatty infiltration of the liver. No measurable mass. Portal, Superior Mesenteric, and Splenic Veins: Unremarkable. Gallbladder and Biliary Tract: No radiodense calculus or dilation. Pancreas: Normal density, no abnormal calcifications or inflammatory process. Spleen: Normal. Adrenals: No masses seen. Kidneys: Normal size, contour and axis. No radiodense stones or obstructive uropathy. There are simple cysts seen in the kidney. No follow-up is recommended. Abdominal Aorta: Abdominal portion non-dilated. Atherosclerosis is present. Bowel: No obstruction or bowel wall thickening. Appendix is unremarkable. Peritoneal Cavity: No ascites, collection or mesenteric inflammatory response. No free air. Lymph Nodes: Within normal limits. Bones: Within normal limits for the patient's age. Soft Tissues: Postsurgical changes are seen in the anterior abdominal wall. There is a drainage catheter in place. There is a small fluid collection superficial to the anterior abdominal wall. It measure measures approximately 6.0 craniocaudad by 1.7 AP by 10 cm transverse. There is mild edema seen in the anterior soft tissues. PELVIS: Bladder: Symmetric distention, no gross wall thickening. Reproductive Organs: Unremarkable as visualized. Lymph Nodes: Within normal limits. Bones: Within normal limits. IMPRESSION: 1. No evidence pulmonary embolism, thoracic aortic dissection or aneurysm. 2. No acute pulmonary process. 3. Postsurgical changes in the anterior abdominal wall with a drainage catheter in place. There is a fluid collection in the anterior abdominal wall in which the catheter lies. This may represent a postoperative seroma or hematoma. Abscess cannot be entirely excluded. Please correlate clinically. 4. Findings were discussed with Melissa Simpson at 1:20 p.m. on 01/26/2023. Lab Data Lab results reviewed: Yes I reviewed the patient's lab results. Labs: Laboratory Tests Range/Units 01/26/23 01/26/23 10:30 10:30 WBC (4.4-10.8) 10^3/uL 8.18 RBC (3.93-5.22) 10^6/uL 4.02 Hgb (11.2-15.7) g/dL 12.2 Hct (36.0-46.0) % 36.7 MCV (80-95) fL 91 MCH (27.0-33.0) pg 30.3 MCHC (32.0-36.0) % 33.2 RDW (11.7-14.6) % 12.5 Plt Count (130-400) 10^3/uL 417 H MPV (8.0-11.0) fL 8.6 Immature Gran % 1.7 Neutrophils % 55.1 Lymphocytes % 25.8 Monocytes % 9.7 Eosinophils % 7.1 Basophils % 0.6 Nucleated RBC % (0.0-0.3) % 0.0 Absolute Neutrophils (1.2-6.7) 10^3/uL 4.51 Absolute Lymphocytes (1.2-3.4) 10^3/uL 2.11 Absolute Monocytes (0.1-0.8) 10^3/uL 0.79 Absolute Eosinophils (0.0-0.7) 10^3/uL 0.58 Absolute Basophils (0.0-0.2) 10^3/uL 0.05 Sodium (136-145) mmol/L 142 Potassium (3.5-5.1) mmol/L 3.7 Chloride (98-107) mmol/L 102 Carbon Dioxide (21.0-32.0) mmol/L 33.4 H Anion Gap (3-11) mmol/L 6.6 BUN (7-18) mg/dL 11 Creatinine (0.55-1.02) mg/dL 0.7 Est GFR (CKD-EPI 2020) (mL/min/1.73m2) 99.57 Glucose (74-106) mg/dL 105 Calcium (8.5-10.1) mg/dL 9.4 Magnesium (1.8-2.4) mg/dL 1.7 L Total Bilirubin (0.2-1.0) mg/dL 0.3 AST (15-37) U/L 17 ALT (14-59) U/L 20 Alkaline Phosphatase (46-116) U/L 78 Total Protein (6.4-8.2) g/dL 7.4 Albumin (3.4-5.0) g/dL 3.2 L HPI General Mode of arrival: ambulatory . Date/Time Provider Initiated Documentation: 01/26/23 10:00 . Limitations to Documentation: no limitations . Information obtained by: patient, RN notes reviewed and old records reviewed . HPI Narrative: 57-year-old female presents to the ER with a chief complaint of abdominal pain and bloody drainage from her MATHEW drain. Patient is status post panniculectomy which was done at [facility] in December. Patient reports that beginning on night she noticed a large amount of drainage around the incision site of the insertion of the MATHEW catheter, she reports bloody drainage. She also reports gradually worsening abdominal pain. She does have a small BB 3 to 5 cc of sanguinous drainage in the MATHEW drain, and the tube there is yellowish fluid that is blood-tinged. No gross bleeding noted no erythema surrounding the insertion site. She does have some erythema noted just medially on the incision in the right lower quadrant. She did not call the surgeon's office this morning. Related Data Home Medications Medication Instructions Recorded Confirmed albuterol sulfate 0.63 mg/3 mL 0.63 mg (3 mL) inhalation QID PRN 08/23/18 01/26/23 solution for nebulization shortness of breath or wheezing #75 mL medical marijuana PO 08/28/19 06/21/22 inhalational spacing device #1 ea 09/11/20 06/21/22 (Flexichamber spacer) black cohosh 540 mg capsule 20 mg PO DAILY 12/10/20 01/26/23 cholecalciferol (vitamin D3) 25 25 mcg PO DAILY 12/10/20 01/26/23 mcg (1,000 unit) capsule loratadine 10 mg tablet (Claritin) 10 mg PO DAILY PRN 12/10/20 01/26/23 lancing device #1 ea 03/04/21 06/21/22 blood-glucose meter (OneTouch #1 ea 04/13/21 06/21/22 Ultra2 Meter kit) lancets (Lancets,Thin) #100 ea 04/13/21 06/21/22 lancets (OneTouch UltraSoft #200 ea 04/13/21 06/21/22 Lancets) lorazepam 0.5 mg tablet (Ativan) 0.5 mg PO DAILY PRN anxiety #3 tabs 08/06/21 01/26/23 albuterol sulfate 90 mcg/actuation 2 puff inhalation PRN PRN 01/06/22 01/26/23 aerosol inhaler (Ventolin HFA) shortness of breath or wheezing #8.5 grams gemfxpmm-wtgqoiwqa-eevvpicfa 3.5 4 drp otic (ear) Q8H 10 days #10 mL 01/20/22 01/26/23 mg-10,000 unit/mL-1 % ear drops,susp mirabegron 25 mg tablet,extended 25 mg PO DAILY #28 tabs 04/13/22 06/21/22 release 24 hr (Myrbetriq) blood sugar diagnostic #100 ea 04/28/22 06/21/22 pen needle, diabetic 32 gauge x #100 ea 04/28/22 06/21/22 1/5 dextroamphetamine sulfate 10 mg 10 mg PO DAILY #28 tabs 04/29/22 01/26/23 tablet hydrochlorothiazide 25 mg tablet 25 mg PO DAILY #90 tabs 05/05/22 01/26/23 magnesium gluconate 27.5 mg 27.5 mg PO DAILY #90 tabs 05/30/22 01/26/23 magnesium (500 mg) tablet nystatin 100,000 unit/gram topical 1 applic topical BID #30 grams 05/30/22 01/26/23 ointment zinc oxide 20 % topical ointment 1 applic topical BID-QID PRN skin 05/31/22 06/21/22 irritation; intertrigo #60 grams clonidine HCl 0.1 mg tablet 0.1 mg PO QHS #90 tabs 07/18/22 01/26/23 quetiapine 100 mg tablet 100 mg PO QHS #90 tabs 07/18/22 01/26/23 duloxetine 60 mg capsule,delayed 60 mg PO DAILY #90 caps 08/21/22 01/26/23 release (Cymbalta) liraglutide 0.6 mg/0.1 mL (18 mg/3 1.8 mg (0.3 mL) subcut DAILY #9 10/11/22 mL) subcutaneous pen injector SYRGS (Victoza 3-Usman) Synthroid 112 mcg tablet 112 mcg PO DAILY #90 tabs 11/23/22 01/26/23 (levothyroxine) acyclovir 200 mg capsule 200 mg PO TID #270 caps 11/23/22 01/26/23 metformin 1,000 mg tablet 1,000 mg PO BID #180 tabs 11/23/22 01/26/23 omeprazole 40 mg capsule,delayed 40 mg PO DAILY #90 tab-caps 11/23/22 01/26/23 release duloxetine 30 mg capsule,delayed 30 mg PO DAILY #90 caps 12/19/22 01/26/23 release losartan 25 mg tablet See Rx Instructions .Route 01/15/23 01/26/23 .COMPLEX #90 tabs Previous Rx's Medication Instructions Recorded albuterol sulfate 0.63 mg/3 mL 0.63 mg (3 mL) inhalation QID PRN 08/23/18 solution for nebulization shortness of breath or wheezing #75 mL inhalational spacing device #1 ea 09/11/20 (Flexichamber spacer) blood-glucose meter (OneTouch #1 ea 04/13/21 Ultra2 Meter kit) lancets (OneTouch UltraSoft #200 ea 04/13/21 Lancets) lorazepam 0.5 mg tablet (Ativan) 0.5 mg PO DAILY PRN anxiety #3 tabs 08/06/21 albuterol sulfate 90 mcg/actuation 2 puff inhalation PRN PRN 01/06/22 aerosol inhaler (Ventolin HFA) shortness of breath or wheezing #8.5 grams xcxbeipz-rtcgleukk-dwdzbjpvn 3.5 4 drp otic (ear) Q8H 10 days #10 mL 01/20/22 mg-10,000 unit/mL-1 % ear drops,susp mirabegron 25 mg tablet,extended 25 mg PO DAILY #28 tabs 04/13/22 release 24 hr (Myrbetriq) blood sugar diagnostic #100 ea 04/28/22 pen needle, diabetic 32 gauge x #100 ea 04/28/22 1/5 dextroamphetamine sulfate 10 mg 10 mg PO DAILY #28 tabs 04/29/22 tablet hydrochlorothiazide 25 mg tablet 25 mg PO DAILY #90 tabs 05/05/22 magnesium gluconate 27.5 mg 27.5 mg PO DAILY #90 tabs 05/30/22 magnesium (500 mg) tablet nystatin 100,000 unit/gram topical 1 applic topical BID #30 grams 05/30/22 ointment zinc oxide 20 % topical ointment 1 applic topical BID-QID PRN skin 05/31/22 irritation; intertrigo #60 grams clonidine HCl 0.1 mg tablet 0.1 mg PO QHS #90 tabs 07/18/22 quetiapine 100 mg tablet 100 mg PO QHS #90 tabs 07/18/22 duloxetine 60 mg capsule,delayed 60 mg PO DAILY #90 caps 08/21/22 release (Cymbalta) liraglutide 0.6 mg/0.1 mL (18 mg/3 1.8 mg (0.3 mL) subcut DAILY #9 10/11/22 mL) subcutaneous pen injector SYRGS (Victoza 3-Usman) Synthroid 112 mcg tablet 112 mcg PO DAILY #90 tabs 11/23/22 (levothyroxine) acyclovir 200 mg capsule 200 mg PO TID #270 caps 11/23/22 metformin 1,000 mg tablet 1,000 mg PO BID #180 tabs 11/23/22 omeprazole 40 mg capsule,delayed 40 mg PO DAILY #90 tab-caps 11/23/22 release duloxetine 30 mg capsule,delayed 30 mg PO DAILY #90 caps 12/19/22 release losartan 25 mg tablet See Rx Instructions .Route 01/15/23 .COMPLEX #90 tabs Allergies Allergy/AdvReac Type Severity Reaction Status Date / Time gabapentin AdvReac Severe suicidal Verified 01/26/23 10:22 ideation, diaphoresis bupropion AdvReac Intermediate ill feeling Verified 01/26/23 10:22 codeine AdvReac Psychosis Verified 01/26/23 10:22 erythromycin base AdvReac Nausea Verified 01/26/23 10:22 lisinopril AdvReac feeling Verified 01/26/23 10:22 conklin, sweaty and jittery. per note 05/19/20 Penicillins AdvReac Headache Verified 01/26/23 10:22 venlafaxine AdvReac Conklin and Verified 01/26/23 10:22 sweating ([facility]) General Stated Complaint: Abd Prob MATT: 3 Review of Systems All systems reviewed & are unremarkable except as noted in HPI and below Gastrointestinal Gastrointestinal: Reports as per HPI (Increased draining around the insertion site of the MATHEW drain on the right) and Reports abdominal pain PFSH All Active Problems (Updated 01/26/23 @ 13:50 by Melissa Simpson NP) Abdominal pain (Acute) Abnormal smell (Acute) Long Hx malodorous intertrigo, pannus infection. Intertrigo (Acute) Presumed emelia Skin abnormalities (Acute) Skin rash (Acute) Abdominal pannus (Chronic) Recommending pannilectomy ([facility]) Lower abdominal central weight (pooch), after weight loss of significant size/inches, but not this hoh of weight. Hypothyroidism (Acute 10/01/14) 08/2019: 05/2020: 12/03/17 TSH 12.78 .. increasing to 150mcg, from 125mcg [vs. the 25mcg originally inputted in med-list]. Re-check @ 02/08.. Mood disorder due to known physiological condition with depressive features (Acute) Headache (Acute) ADHD (attention deficit hyperactivity disorder), combined type (Acute) Essential hypertension (Acute 11/02/17) Sensorineural hearing loss, bilateral (Acute) Type 2 diabetes mellitus without complication, without long-term current use of insulin (Acute 11/28/17) Dx 2012 Metformin 1,000 BID, Lisinopril-HCTZ. A1C 5.7 11/28/17 Other specified diabetes mellitus without complications (Acute 11/02/17) A1C 5.7 (Nov 2017), met w/ Cosmo, BP/Labwork acceptable. Low dose AceI, mod Metformin dose. Support less meds as BS level Hx shows leveling and BMI improves. Cervical spine degeneration (Acute) Significant worsening, per pain and PT eval (Dr. Gilbert is requesting MRI). NEG findings. Improved with Hedrick. Chronic pain of left heel (Acute) Pessary maintenance (Acute) CARIN (stress urinary incontinence, female) (Acute) Mixed stress and urge urinary incontinence (Acute) Acute upper back pain (Acute) 2' increased heavy lifting, mopping @ work. Chronic issue with acute complaints 2' overuse History of colon polyps (Acute) Anxiety (Acute 11/02/17) Chronic post-traumatic stress disorder (PTSD) (Acute 11/02/17) Nightmares, residual fear that she will be followed (by man who may find her thru mutual friend here in area) Major depressive disorder, recurrent (Acute) Binge eating disorder (Acute) Degenerative disc disease, cervical (Acute 11/02/17) Fibromyalgia (Acute 11/02/17) Herpes simplex (Acute 11/02/17) Herpes zoster without complication (Acute 11/02/17) Hyperlipidemia (Acute 11/02/17) EDGAR (obstructive sleep apnea) (Acute 11/2011) C-Pap Vandana Patino Medical History Alcohol abuse (11/02/17) Cervical radiculopathy (11/02/17) post C3-C7 surgery (frontal approach scar), plate/coil ([facility]) COVID (10/17/21) Depression (11/02/17) Long Hx with exacerbating event just over a year ago. Moving here from [place] is a helpful move. Quet used for just near a year. admission 3/2/16-01/26/16 suicidal ideation/depression Former tobacco use smoked 1 ppd quit and pt states she did not smoke for 30 yrs. Low Scan Chest ct not indicated. 08/20/19 cgc Hx estrogen therapy Has greatly helped with depression .. D/C'd 04/2020 by [facility] 2' high BPs. Doing terribly with mood/depression, 05/26/20. Iliotibial band syndrome of right side (02/12/19) > possible Dx, appreciate PT Evaluation Insomnia (11/02/17) Migraine headache (11/02/17) Tubular adenoma of colon (07/23/13) Surgical History Colonoscopy w/ Bx (07/22/13) Polyps, therefore 5 yr FU Elbow Surgery History of surgery Neck surgery Hysterectomy (10/21/10) Fibroids Knee Surgery knee reconstruction Open Carpal Tunnel release (01/13/13) Bilateral [place] Teeth (01/29/18) Family History Mother Hyperthyroidism Mental health problem Daughter Mental health problem Social History Smoking/Tobacco Use Status: Former Tobacco Use Quit Date: 11/19/89 Smoking risk assessment performed?: Yes Alcohol Intake: current Alcohol Intake frequency: holidays/special occasions only Drug use: Daily Substance use type: marijuana Household members: none Housing: apartment Number of Children: 2 number of grandchildren: 3 Communication Needs: None current occupation: works at [employer] What is your relationship status?: Panel score (0-1 are the most socially isolated patients): 0 What type of physical activity do you participate in: walking Frequency: 1-2 times per week Seatbelt use: always Drive intox or ride w/intox spike driver: No Working smoke detector in home: Yes Fire extinguisher in home: Yes Carbon monox detector in home: Yes Do you feel safe at home: Yes Do you feel safe in your relationship?: Yes Additional Social history: alone Exam Const General: cooperative, well developed and well groomed Nutritional Appearance: average body habitus Orientation: alert, awake and oriented x3 Resp Effort & Inspection: normal respiratory effort and able to speak in complete sentences Auscultation: clear to auscultation bilaterally Cardio Rate: tachycardic Rhythm: regular rhythm Heart Sounds: S1 normal and S2 normal GI Inspection: incision Abdomen image: 1. Incision, well approximated 2. Incision 3. MATHEW drain, it is sutured in place serosanguineous drainage noted in the tube. No gross bloody discharge noted. Course Vital Signs Vital signs: Vital Signs Temperature 36.3 C L 01/26/23 10:01 Pulse 104 H 01/26/23 10:01 Respiratory Rate 18 01/26/23 10:01 Blood Pressure 128/72 01/26/23 10:01 Pulse Oximetry 97 01/26/23 10:01 Temperature 36.3 C L 01/26/23 10:01 Temperature Source Tympanic 01/26/23 10:01 Pulse 104 H 01/26/23 10:01 Respiratory Rate 18 01/26/23 10:01 Blood Pressure 128/72 01/26/23 10:01 Blood Pressure Position Sitting 01/26/23 10:01 Pulse Oximetry 97 01/26/23 10:01 Oxygen Delivery Method Room Air 01/26/23 10:01 Oxygen Flow Rate 0 01/26/23 10:01 Pain Level 7 01/26/23 10:01
[2023-01-26 10:39] LABS: Abs Immature Grans 0.14 10^3/uL (0.0-0.06); Absolute Basophil Count 0.05 10^3/uL (0.0-0.2); Absolute Eosinophil Count 0.58 10^3/uL (0.0-0.7); Absolute Lymphocyte Count 2.11 10^3/uL (1.2-3.4); Absolute Monocyte Count 0.79 10^3/uL (0.1-0.8); Absolute Neutrophil Count 4.51 10^3/uL (1.2-6.7); Basophils % 0.6; Eosinophils % 7.1; HCT 36.7 % (36.0-46.0); HGB 12.2 g/dL (11.2-15.7); Immature Grans % 1.7; Lymphocytes % 25.8; MCH 30.3 pg (27.0-33.0); MCHC 33.2 % (32.0-36.0); MCV 91 fL (80-95); MPV 8.6 fL (8.0-11.0); Monocytes % 9.7; Neutrophils % 55.1; Platelet Count 417 10^3/uL (130-400); RBC 4.02 10^6/uL (3.93-5.22); RDW 12.5 % (11.7-14.6); RDW-SD 41.5 fL; WBC 8.18 10^3/uL (4.4-10.8)
--- NOTE | 2023-01-26 10:45 | DI.CT_ITS ---
Exam(s) CT CHEST PE ABD PELVIS W EXAM: CT CHEST PE ABD PELVIS W CLINICAL HISTORY: Tachycardia, Recent Surgery, Abd pain. TECHNIQUE: Imaging Protocol: Axial CT angiography was performed with multi-slice acquisition and mu lti-planar and/or 3D reconstructions. CONTRAST MATERIAL: Intravenous: Omnipaque 350contrast volume:99 mL COMPARISON: No exams were available for comparison FINDINGS: CHEST: Tracheobronchial tree: Patent where visualized. Pulmonary parenchyma: No consolidation or dominant measurable mass. No architectural distortion. Pulmonary Arteries: No evidence of filling defect to suggest pulmonary emboli. Mediastinum and Marjorie: No dominant adenopathy or fluid collection. The esophagus is unremarkable. Ther e is a small hiatal hernia. Visualized thyroid gland: Unremarkable. Pleura: No effusion or pneumothorax. Heart: The heart is not dilated. No coronary artery calcifications are seen. No pericardial effusion. Aorta: Thoracic aorta non-dilated. No evidence of dissection. Bones: Within normal limits for the patient's age. Anterior cervical disc fusion is seen. Soft tissues: Unremarkable. ABDOMEN: Liver: There is fatty infiltration of the liver. No measurable mass. Portal, Superior Mesenteric, and Splenic Veins: Unremarkable. Gallbladder and Biliary Tract: No radiodense calculus or dilation. Pancreas: Normal density, no abnormal calcifications or inflammatory process. Spleen: Normal. Adrenals: No masses seen. Kidneys: Normal size, contour and axis. No radiodense stones or obstructive uropathy. There are simpl e cysts seen in the kidney. No follow-up is recommended. Abdominal Aorta: Abdominal portion non-dilated. Atherosclerosis is present. Bowel: No obstruction or bowel wall thickening. Appendix is unremarkable. Peritoneal Cavity: No ascites, collection or mesenteric inflammatory response. No free air. Lymph Nodes: Within normal limits. Bones: Within normal limits for the patient's age. Soft Tissues: Postsurgical changes are seen in the anterior abdominal wall. There is a drainage cath eter in place. There is a small fluid collection superficial to the anterior abdominal wall. It jean sure measures approximately 6.0 craniocaudad by 1.7 AP by 10 cm transverse. There is mild edema seen in the anterior soft tissues. PELVIS: Bladder: Symmetric distention, no gross wall thickening. Reproductive Organs: Unremarkable as visualized. Lymph Nodes: Within normal limits. Bones: Within normal limits. IMPRESSION: 1. No evidence pulmonary embolism, thoracic aortic dissection or aneurysm. 2. No acute pulmonary process. 3. Postsurgical changes in the anterior abdominal wall with a drainage catheter in place. There is a fluid collection in the anterior abdominal wall in which the catheter lies. This may represent a po stoperative seroma or hematoma. Abscess cannot be entirely excluded. Please correlate clinically. 4. Findings were discussed with Melissa Simpson at 1:20 p.m. on 01/26/2023. RADIATION DOSE DELIVERED: 1,429.22mGy.cm Total DLP DATA REPOSITORY: All CT scans at this facility are submitted to the National Radiology Data Registry (NRDR) Dose Index Registry (DIR) with the [employer] (ACR). RADIATION OPTIMIZATION: All CT scans at this facility use at least one of these dose optimization te chniques: automated exposure control; mA and/or kV adjustment per patient size (includes targeted exa ms where dose is matched to clinical indication); or iterative reconstruction.
[2023-01-26 11:01] LABS: ALT 20 U/L (14-59); AST 17 U/L (15-37); Albumin 3.2 g/dL (3.4-5.0); Alkaline Phosphatase 78 U/L (46-116); Anion Gap 6.6 mmol/L (3-11); BUN 11 mg/dL (7-18); Bilirubin, Total 0.3 mg/dL (0.2-1.0); CO2 33.4 mmol/L (21.0-32.0); CREATININE 0.7 mg/dL (0.55-1.02); Calcium 9.4 mg/dL (8.5-10.1); Chloride 102 mmol/L (98-107); Estimated GFR 99.57 (mL/min/1.73m2); Glucose 105 mg/dL (74-106); Magnesium 1.7 mg/dL (1.8-2.4); Potassium 3.7 mmol/L (3.5-5.1); Sodium 142 mmol/L (136-145); Total Protein 7.4 g/dL (6.4-8.2)
[2023-01-26] MEDS: traMADol 50 MG TAB PO (11:07)
[2023-01-26 11:08] VITALS: BP 134/73; PULSE 85; RESP 20; O2SAT 99
[2023-01-26] MEDS: Omnipaque 350 MG/ML 100 ML BTL IJ (12:35)
[2023-01-26] MEDS: Normal Saline - Diluent 50 ML VIAL IJ (12:36)
== END 2023-01-26 18:15 | disposition home or self-care (01) ==
PROVIDERS: Emergency Provider Registered Nurse Emergency; PCP Student in an Organized Health Care Education/Training Program
DX: T81.89XA Other complications of procedures, not elsewhere classified, initial encounter (principal); R10.9 Unspecified abdominal pain; Z98.890 Other specified postprocedural states; R00.0 Tachycardia, unspecified; X58.XXXA Exposure to other specified factors, initial encounter
CPT/HCPCS: 71275; 74177; 80053; 99285; 83735; 85025; 99284; J3490

== ENCOUNTER 2023-05-11 02:27 | Outpatient (CLI) | payer MEDICARE, MEDICAID, SELFPAY ==
[2023-05-11 14:33] LABS: TSH (W/Ref FT4) 0.28 uIU/mL (0.36-3.74)
[2023-05-11 14:52] LABS: FREE T4 1.37 ng/dL (0.76-1.46)
== END 2023-05-11 02:28 | disposition home or self-care (01) ==
LOC: LBO 02:50
PROVIDERS: PCP Student in an Organized Health Care Education/Training Program; Visit Provider Student in an Organized Health Care Education/Training Program
DX: E03.9 Hypothyroidism, unspecified (principal)
CPT/HCPCS: 36415; 84439; 84443

== ENCOUNTER → 2023-07-13 00:04 | Outpatient (CLI) | payer MEDICARE, MEDICAID, SELFPAY ==
--- NOTE | 2023-07-13 07:00 | DI.US_ITS ---
Exam(s) US THYROID EXAM: US THYROID CLINICAL HISTORY: evaluate thyroid, 2nd elev/dose dec,TSH ELEVATION,R79.89. TECHNIQUE: Ultrasound thyroid performed using standard protocol. COMPARISON: No exams were available for comparison FINDINGS: ISTHMUS: 2 mm RIGHT LOBE: Size: 5.2 x 1.7 x 1.7 cm Echogenicity: The gland is heterogeneous without discrete nodule. Vascularity: Normal. Nodules: None. LEFT LOBE: Size: 3.9 x 1.1 x 1.2 cm Echogenicity: The gland is heterogeneous without discrete nodule. Vascularity: Normal. Nodules: None. OTHER FINDINGS: None. IMPRESSION: 1. No evidence of a discrete thyroid nodule. 2. Diffuse heterogeneity of the thyroid gland. This can be seen with thyroiditis. Please correlate clinically. DATA REPOSITORY:
== END ==
PROVIDERS: PCP Student in an Organized Health Care Education/Training Program; Visit Provider Student in an Organized Health Care Education/Training Program
DX: R79.89 Other specified abnormal findings of blood chemistry (principal); E07.89 Other specified disorders of thyroid
CPT/HCPCS: 76536

== ENCOUNTER 2023-08-16 13:10 | Outpatient (CLI) | payer MEDICARE, MEDICAID, SELFPAY ==
[2023-08-16 13:43] LABS: Albumin 3.8 g/dL (3.4-5.0); Anion Gap 8.5 mmol/L (3-11); BUN 15 mg/dL (7-18); CO2 29.5 mmol/L (21.0-32.0); CREATININE 0.9 mg/dL (0.55-1.02); Calcium 9.7 mg/dL (8.5-10.1); Chloride 100 mmol/L (98-107); Estimated GFR 73.19 (mL/min/1.73m2); Glucose 139 mg/dL (74-106); Magnesium 1.8 mg/dL (1.8-2.4); Potassium 3.7 mmol/L (3.5-5.1); Sodium 138 mmol/L (136-145); TSH (W/Ref FT4) 2.21 uIU/mL (0.36-3.74)
== END 2023-08-16 13:11 | disposition home or self-care (01) ==
LOC: LBO 13:14
PROVIDERS: PCP Student in an Organized Health Care Education/Training Program; Visit Provider Student in an Organized Health Care Education/Training Program
DX: B95.8 Unspecified staphylococcus as the cause of diseases classified elsewhere (principal); E03.9 Hypothyroidism, unspecified; E46 Unspecified protein-calorie malnutrition; E87.8 Other disorders of electrolyte and fluid balance, not elsewhere classified; L08.9 Local infection of the skin and subcutaneous tissue, unspecified; L90.5 Scar conditions and fibrosis of skin; R77.0 Abnormality of albumin; I10 Essential (primary) hypertension; Z91.89 Other specified personal risk factors, not elsewhere classified
CPT/HCPCS: 36415; 80048; 82040; 83735; 84443

== ENCOUNTER 2023-10-18 02:01 | Outpatient (CLI) | payer MEDICARE, MEDICAID, SELFPAY ==
[2023-10-18 10:49] LABS: TSH (W/Ref FT4) 13.02 uIU/mL (0.36-3.74)
[2023-10-18 11:05] LABS: FREE T4 0.91 ng/dL (0.76-1.46)
[2023-10-22 17:02] LABS: Apolipoprotein B, Serum 124 mg/dL (48-124); Beta VLDL Cholesterol Not Detected mg/dL (<15); Beta VLDL Triglycerides Not Detected mg/dL (<15); Cholesterol, Total, CDC 272 mg/dL; Chylomicron Cholesterol Not Detected; Chylomicron Triglycerides Not Detected; HDL Cholesterol, CDC 70 mg/dL (>=50); LDL Cholesterol 183 mg/dL; LDL Triglycerides 46 mg/dL (<=50); Lp(a) Cholesterol <5 mg/dL (<5); LpX Not detected; Triglycerides, CDC 141 mg/dL; VLDL Cholesterol 19 mg/dL (<30); VLDL Triglycerides 68 mg/dL (<120)
[2023-10-24 12:41] LABS: T3 (Triiodothyronine) Reverse 16 ng/dL (10-24)
== END 2023-10-18 02:02 | disposition home or self-care (01) ==
LOC: LBO 02:01
PROVIDERS: PCP Student in an Organized Health Care Education/Training Program; Visit Provider Student in an Organized Health Care Education/Training Program
DX: E06.9 Thyroiditis, unspecified (principal); E78.5 Hyperlipidemia, unspecified; E11.65 Type 2 diabetes mellitus with hyperglycemia
CPT/HCPCS: 36415; 80061; 82172; 82664; 84439; 84443; 84482

== ENCOUNTER 2023-12-03 05:24 | Outpatient (CLI) | payer MEDICARE, MEDICAID, SELFPAY ==
[2023-12-03 10:12] LABS: HGB 14.5 g/dL (11.2-15.7)
[2023-12-03 10:38] LABS: TSH (W/Ref FT4) 2.15 uIU/mL (0.36-3.74)
[2023-12-03 19:33] LABS: Thyroglobulin Antibody 27 U/mL (<=60); Thyroperoxidase Antibody 332 U/mL (<=60)
== END 2023-12-03 05:25 | disposition home or self-care (01) ==
LOC: LBO 05:24
PROVIDERS: Absent Provider Student in an Organized Health Care Education/Training Program; PCP Student in an Organized Health Care Education/Training Program; Referring Provider Student in an Organized Health Care Education/Training Program; Visit Provider Student in an Organized Health Care Education/Training Program
DX: E06.9 Thyroiditis, unspecified (principal); D64.9 Anemia, unspecified; E03.9 Hypothyroidism, unspecified
CPT/HCPCS: 36415; 86376; 84443; 85018

== ENCOUNTER 2024-07-18 08:45 | Day surgery (SDC) | payer MEDICARE, MEDICAID, SELFPAY ==
--- NOTE | 2024-07-18 08:39 | HPE_ITS ---
Assessment and Plan Assessment and plan (1) Posterior subcapsular age-related cataract of left eye: Status: Acute Assessment and plan: Assessment: Visually significant cataract of the left eye. Plan: Cataract extraction with lens implantation of the left eye. (2) Nuclear age-related cataract, left eye: Status: Acute Assessment and plan: Assessment: Visually significant cataract of the left eye. Plan: Cataract extraction with lens implantation of the left eye. 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 She has developed bilateral nuclear/posterior subcapsular cataract which is beginning to interfere with her retinal examinations. Cataract surgery is planned in attempt to improve and maximize her limited vision, but also clear the visual axis for continued monitoring of the macula. Review of Systems All systems reviewed & are unremarkable except as noted in HPI and below PFSH All Active Problems Posterior subcapsular age-related cataract of left eye (Acute) Nuclear age-related cataract, left eye (Acute) Vision disorder (Acute) Skin lesion (Acute) Thyroiditis (Acute) Mood disorder due to known physiological condition with depressive features (Acute) Sensorineural hearing loss, bilateral (Acute) Cervical spine degeneration (Acute) Significant worsening, per pain and PT eval (Dr. Gilbert is requesting MRI). NEG findings. Improved with Vladimir. Acute upper back pain (Acute) 2' increased heavy lifting, mopping @ work. Chronic issue with acute complaints 2' overuse ADHD (attention deficit hyperactivity disorder), combined type (Acute) Major depressive disorder, recurrent (Acute) Type 2 diabetes mellitus without complication, without long-term current use of insulin (Acute 11/28/17) Dx 2012 Metformin 1,000 BID, Lisinopril-HCTZ. A1C 5.7 11/28/17 EDGAR (obstructive sleep apnea) (Acute 11/2011) C-Pap Vandana Patino Hypothyroidism (Acute 10/01/14) 08/2019: 05/2020: 12/03/17 TSH 12.78 .. increasing to 150mcg, from 125mcg [vs. the 25mcg originally inputted in med-list]. Re-check @ 02/08.. Hyperlipidemia (Acute 11/02/17) Fibromyalgia (Acute 11/02/17) Essential hypertension (Acute 11/02/17) Degenerative disc disease, cervical (Acute 11/02/17) Anxiety (Acute 11/02/17) Medical History Other specified diabetes mellitus without complications (11/02/17) A1C 5.7 (Nov 2017), met w/ [facility], BP/Labwork acceptable. Low dose AceI, mod Metformin dose. Support less meds as BS level Hx shows leveling and BMI improves. Chronic post-traumatic stress disorder (PTSD) (11/02/17) Nightmares, residual fear that she will be followed (by man who may find her thru mutual friend here in area) Pain at surgical incision Scar tissue Skin abnormalities Chronic pain of left heel Pessary maintenance pt. states she does not have this any longer CARIN (stress urinary incontinence, female) Improved post annulectomy Mixed stress and urge urinary incontinence Some relief post pannulectomy! History of colon polyps Herpes zoster without complication (11/02/17) Herpes simplex (11/02/17) Staphylococcal infection of skin Post pancolectomy Abnormal smell Minimal post colectomy ..long Hx malodorous intertrigo, pannus infection. Intertrigo Presumed emelia COVID (10/17/21) Binge eating disorder Hx estrogen therapy Has greatly helped with depression .. D/C'd 04/2020 by [facility] 2' high BPs. Doing terribly with mood/depression, 05/26/20. Abdominal pannus Recovering post pancolectomy recommending [facility]ilectomy ([facility]) Lower abdominal central weight (pooch), after weight loss of significant size/inches, but not this [place] of weight. Former tobacco use smoked 1 ppd quit and pt states she did not smoke for 30 yrs. Low Scan Chest ct not indicated. 08/20/19 cgc Iliotibial band syndrome of right side (02/12/19) > possible Dx, appreciate PT Evaluation Tubular adenoma of colon (07/23/13) Migraine headache (11/02/17) Insomnia (11/02/17) Depression (11/02/17) Long Hx with exacerbating event just over a year ago. Moving here from [place] is a helpful move. Quet used for just near a year. admission 01/19/16-01/26/16 suicidal ideation/depression Cervical radiculopathy (11/02/17) post C3-C7 surgery (frontal approach scar), plate/coil () Alcohol abuse (11/02/17) Surgical History S/P panniculectomy (12/29/22) History of surgery Neck surgery [place] Teeth (01/29/18) Open Carpal Tunnel release (01/13/13) Bilateral Knee Surgery knee reconstruction Hysterectomy (10/21/10) Fibroids Elbow Surgery Colonoscopy w/ Bx (07/22/13) Polyps, therefore 5 yr FU Family History Mother Hyperthyroidism Mental health problem Daughter Mental health problem Alcohol use disorder Anxiety Depression Father Alcohol use disorder Cancer Prostate Diabetes Heart disease Brother Alcohol use disorder Son Asthma Social History Smoking/Tobacco Use Status: Former Tobacco Use Quit Date: 11/19/89 Quit status: quit date established Smoking risk assessment performed?: Yes Alcohol Intake: current Alcohol Intake frequency: holidays/special occasions only Drug use: Daily Substance use type: marijuana Details: 07/18/24: smoked marijuana last on 07/17/24 Adopted: No Foster care: No Household members: none Housing: apartment Number of Children: 2 number of grandchildren: 3 Communication Needs: Blind Education Level: high school Do you need help understanding health information?: Rarely current occupation: works at [employer] Pets and animals: No Sexually active: No Do you think of yourself as: straight/heterosexual Current gender identity: female What is your relationship status?: How often do you talk on the phone with friends or family?: three or more times per week How often do you get together with friends or relatives?: twice per week Do you belong to any clubs or organized social groups?: yes Panel score (0-1 are the most socially isolated patients): 2 What type of physical activity do you participate in: walking Duration: 15-30 minutes/day Frequency: 3-4 times per week Cynthia/Christian: [employer] Seatbelt use: always Drive intox or ride w/intox van driver helper: No Working smoke detector in home: Yes Fire extinguisher in home: Yes Carbon monox detector in home: Yes Do you feel safe at home: Yes Do you feel safe in your relationship?: Yes Additional Social history: alone Meds Allergies and Home Medications Allergies Allergy/AdvReac Type Severity Reaction Status Date / Time gabapentin AdvReac Severe suicidal Verified 07/18/24 09:11 ideation, diaphoresis bupropion AdvReac Intermediate ill feeling Verified 07/18/24 09:11 codeine AdvReac Psychosis Verified 07/18/24 09:11 erythromycin base AdvReac Nausea Verified 07/18/24 09:11 lisinopril AdvReac feeling Verified 07/18/24 09:11 conklin, sweaty and jittery. per note 05/19/20 Penicillins AdvReac Headache Verified 07/18/24 09:11 venlafaxine AdvReac Conklin and Verified 07/18/24 09:11 sweating ([facility]) Home Medications ?Medication ?Instructions ?Recorded ?Confirmed ?Type albuterol sulfate 0.63 mg/3 mL 0.63 mg (3 mL) inhalation QID PRN 08/23/18 07/18/24 Rx solution for nebulization shortness of breath or wheezing #75 mL medical marijuana PO 08/28/19 12/25/23 History inhalational spacing device #1 ea 09/11/20 12/25/23 Rx (Flexichamber spacer) loratadine 10 mg tablet (Claritin) 10 mg PO DAILY PRN 12/10/20 07/18/24 History odyltypu-bvkujpdxo-eovsifmsw 3.5 4 drp otic (ear) Q8H 10 days #10 mL 01/20/22 07/18/24 Rx mg-10,000 unit/mL-1 % ear drops,susp albuterol sulfate 90 mcg/actuation 2 puff inhalation PRN PRN 04/17/23 07/18/24 Rx aerosol inhaler (Ventolin HFA) shortness of breath or wheezing #8.5 grams blood sugar diagnostic #100 ea 06/29/23 12/25/23 Rx blood-glucose meter #1 ea 06/29/23 12/25/23 Rx lancets (Accu-Chek Softclix 06/29/23 12/25/23 History Lancets) Abdominal Binder #1 ea 07/08/23 12/25/23 Rx quetiapine 100 mg tablet 100 mg PO QHS #90 tabs 07/28/23 07/18/24 Rx pen needle, diabetic 32 gauge x #100 ea 08/20/23 12/25/23 Rx 1/5 multivitamin (One Daily 1 tab PO DAILY 90 days #90 tabs 08/31/23 07/18/24 Rx Multivitamin tablet) acyclovir 200 mg capsule 200 mg PO TID #270 caps 10/19/23 07/18/24 Rx metformin 1,000 mg tablet 1,000 mg PO BID #180 tabs 10/19/23 07/18/24 Rx omeprazole 40 mg capsule,delayed 40 mg PO DAILY #90 tab-caps 10/19/23 07/18/24 Rx release urea 40 % topical cream 1 applic topical BID #28.35 grams 01/11/24 07/18/24 Rx hydrochlorothiazide 25 mg tablet 25 mg PO DAILY #90 tabs 03/07/24 07/18/24 Rx semaglutide 0.25 mg or 0.5 mg (2 0.5 mg (0.736 mL) subcut QWEEK 28 03/27/24 07/18/24 Rx mg/3 mL) subcutaneous pen injector days #2.944 mL (Ozempic) Synthroid 100 mcg tablet See Rx Instructions .Route 05/29/24 07/18/24 Rx (levothyroxine) .COMPLEX #28 tabs clonidine HCl 0.1 mg tablet 0.1 mg PO QHS #90 tabs 05/29/24 07/18/24 Rx duloxetine 30 mg capsule,delayed See Rx Instructions .Route 05/29/24 07/18/24 Rx release .COMPLEX #28 caps losartan 25 mg tablet See Rx Instructions .Route 05/29/24 07/18/24 Rx .COMPLEX #90 tabs duloxetine 60 mg capsule,delayed 60 mg PO DAILY #90 caps 06/24/24 07/18/24 Rx release (Cymbalta) Exam Eyes Other: Most recent ocular examination is significant for corrected visual acuity of 20/100 OD, 20/100 OS. Extraocular Nick is normal. Intraocular pressure 17 OD, 15 OS. Slit-lamp examination is significant for moderate nuclear/posterior subcapsular cataract OU. Funduscopic examination shows disc cupping of 0.3 OU with normal vessels. Pigmentary changes are noted in both central macula's, with well-demarcated dropout/hypopigmented area in both maculas. Consistent with Stargardt disease. Peripheral retina is normal. Resp Auscultation: clear to auscultation bilaterally Cardio Rate: regular rate Rhythm: regular rhythm
[2024-07-18] MEDS: Tropicam./Phenyleph. (1/2.5%) 5 ML BTL OS ×3 (09:00→09:18)
[2024-07-18 09:02] VITALS: BP 130/85; PULSE 92; RESP 16; TEMP 36.5; O2SAT 97
[2024-07-18 09:31] VITALS: BMI 31.4
--- NOTE | 2024-07-18 09:31 | W.ANESPRE ---
General Info Date of Service Date Performed: 07/18/24 Height: 5 ft 5.5 in Weight: 86.9 kg Body Mass Index (BMI): 31.4 Surgical Procedure: Operation Date: 07/18/24 11:40 Proposed Procedure Side Surgeon p Cataract Extraction with IOL Implant Left Andrea Torres MD Meds Allergies and Home Medications Allergies Allergy/AdvReac Type Severity Reaction Status Date / Time gabapentin AdvReac Severe suicidal Verified 07/18/24 09:11 ideation, diaphoresis bupropion AdvReac Intermediate ill feeling Verified 07/18/24 09:11 codeine AdvReac Psychosis Verified 07/18/24 09:11 erythromycin base AdvReac Nausea Verified 07/18/24 09:11 lisinopril AdvReac feeling Verified 07/18/24 09:11 conklin, sweaty and jittery. per note 05/19/20 Penicillins AdvReac Headache Verified 07/18/24 09:11 venlafaxine AdvReac Conklin and Verified 07/18/24 09:11 sweating ([facility]) Home Medication ?Medication ?Instructions ?Recorded albuterol sulfate 0.63 mg/3 mL 0.63 mg (3 mL) inhalation QID PRN 08/23/18 solution for nebulization shortness of breath or wheezing #75 mL medical marijuana PO 08/28/19 inhalational spacing device #1 ea 09/11/20 (Flexichamber spacer) loratadine 10 mg tablet (Claritin) 10 mg PO DAILY PRN 12/10/20 mwtikmkc-oikvywpiv-mggentbyb 3.5 4 drp otic (ear) Q8H 10 days #10 mL 01/20/22 mg-10,000 unit/mL-1 % ear drops,susp albuterol sulfate 90 mcg/actuation 2 puff inhalation PRN PRN 04/17/23 aerosol inhaler (Ventolin HFA) shortness of breath or wheezing #8.5 grams blood sugar diagnostic #100 ea 06/29/23 blood-glucose meter #1 ea 06/29/23 lancets (Accu-Chek Softclix 06/29/23 Lancets) Abdominal Binder #1 ea 07/08/23 quetiapine 100 mg tablet 100 mg PO QHS #90 tabs 07/28/23 pen needle, diabetic 32 gauge x #100 ea 08/20/23 1/5 multivitamin (One Daily 1 tab PO DAILY 90 days #90 tabs 08/31/23 Multivitamin tablet) acyclovir 200 mg capsule 200 mg PO TID #270 caps 10/19/23 metformin 1,000 mg tablet 1,000 mg PO BID #180 tabs 10/19/23 omeprazole 40 mg capsule,delayed 40 mg PO DAILY #90 tab-caps 10/19/23 release urea 40 % topical cream 1 applic topical BID #28.35 grams 01/11/24 hydrochlorothiazide 25 mg tablet 25 mg PO DAILY #90 tabs 03/07/24 semaglutide 0.25 mg or 0.5 mg (2 0.5 mg (0.736 mL) subcut QWEEK 28 03/27/24 mg/3 mL) subcutaneous pen injector days #2.944 mL (Ozempic) Synthroid 100 mcg tablet See Rx Instructions .Route 05/29/24 (levothyroxine) .COMPLEX #28 tabs clonidine HCl 0.1 mg tablet 0.1 mg PO QHS #90 tabs 05/29/24 duloxetine 30 mg capsule,delayed See Rx Instructions .Route 05/29/24 release .COMPLEX #28 caps losartan 25 mg tablet See Rx Instructions .Route 05/29/24 .COMPLEX #90 tabs duloxetine 60 mg capsule,delayed 60 mg PO DAILY #90 caps 06/24/24 release (Cymbalta) Current Visit Medications: Current Medications Generic Name Dose Route Start Last Admin Trade Name Freq PRN Reason Stop Dose Admin Acetaminophen 1,000 mg 07/18/24 07:15 Acetaminophen 500 Mg Tab PO 08/17/24 07:14 Q4H PRN PRN Balanced Salt Solution 500 ml 07/18/24 07:15 Balanced Salt Soln.-Plus 500 Ml Bag OP 08/17/24 07:14 DIRECTED [facility] Miscellaneous Medication 0 ml 07/18/24 07:15 Prednisolone 1%, Moxifloxacin 0.5%, Bromfenac 0.09% 5.6ml Btl OS 08/17/24 07:14 DIRECTED [facility] Miscellaneous Medication 0 ml 07/18/24 08:00 07/18/24 09:18 Tropicam./Phenyleph. (1/2.5%) 5 Ml Btl OS 08/17/24 07:59 1 drp DIRECTED [facility] Administration Tetracaine HCl 0 ml 07/18/24 07:15 Tetracaine 0.5% 4 Ml Btl OS 08/17/24 07:14 DIRECTED [facility] PFSH Active Problems Active Problems: Problem Status Onset Code Posterior subcapsular age-related cataract of left eye Acute H25.042 Nuclear age-related cataract, left eye Acute H25.12 Vision disorder Acute H53.9 Skin lesion Acute L98.9 Thyroiditis Acute E06.9 Mood disorder due to known physiological condition with depressive features Acute F06.31 Sensorineural hearing loss, bilateral Acute H90.3 Cervical spine degeneration Acute M47.812 Acute upper back pain Acute M54.9 ADHD (attention deficit hyperactivity disorder), combined type Acute F90.2 Major depressive disorder, recurrent Acute F33.9 Type 2 diabetes mellitus without complication, without long-term current use of insulin Acute 11/28/17 E11.9 EDGAR (obstructive sleep apnea) Acute 11/2011 G47.33 Hypothyroidism Acute 10/01/14 E03.9 Hyperlipidemia Acute 11/02/17 E78.5 Fibromyalgia Acute 11/02/17 M79.7 Essential hypertension Acute 11/02/17 I10 Degenerative disc disease, cervical Acute 11/02/17 M50.30 Anxiety Acute 11/02/17 F41.9 Medical History Medical History Other specified diabetes mellitus without complications (11/02/17) A1C 5.7 (Nov 2017), met w/ [facility], BP/Labwork acceptable. Low dose AceI, mod Metformin dose. Support less meds as BS level Hx shows leveling and BMI improves. Chronic post-traumatic stress disorder (PTSD) (11/02/17) Nightmares, residual fear that she will be followed (by man who may find her thru mutual friend here in area) Pain at surgical incision Scar tissue Skin abnormalities Chronic pain of left heel Pessary maintenance pt. states she does not have this any longer CARIN (stress urinary incontinence, female) Improved post annulectomy Mixed stress and urge urinary incontinence Some relief post pannulectomy! History of colon polyps Herpes zoster without complication (11/02/17) Herpes simplex (11/02/17) Staphylococcal infection of skin Post pancolectomy Abnormal smell Minimal post colectomy ..long Hx malodorous intertrigo, pannus infection. Intertrigo Presumed emelia COVID (10/17/21) Binge eating disorder Hx estrogen therapy Has greatly helped with depression .. D/C'd 04/2020 by [facility] 2' high BPs. Doing terribly with mood/depression, 05/26/20. Abdominal pannus Recovering post pancolectomy recommending pannilectomy ([facility]) Lower abdominal central weight (pooch), after weight loss of significant size/inches, but not this [place] of weight. Former tobacco use smoked 1 ppd quit and pt states she did not smoke for 30 yrs. Low Scan Chest ct not indicated. 08/20/19 cgc Iliotibial band syndrome of right side (02/12/19) > possible Dx, appreciate PT Evaluation Tubular adenoma of colon (07/23/13) Migraine headache (11/02/17) Insomnia (11/02/17) Depression (11/02/17) Long Hx with exacerbating event just over a year ago. Moving here from [place] is a helpful move. Quet used for just near a year. admission 01/19/16-01/26/16 suicidal ideation/depression Cervical radiculopathy (11/02/17) post C3-C7 surgery (frontal approach scar), plate/coil () Alcohol abuse (11/02/17) Surgical History Surgical History S/P panniculectomy (12/29/22) History of surgery Neck surgery [place] Teeth (01/29/18) Open Carpal Tunnel release (01/13/13) Bilateral Knee Surgery knee reconstruction Hysterectomy (10/21/10) Fibroids Elbow Surgery Colonoscopy w/ Bx (07/22/13) Polyps, therefore 5 yr FU Tobacco Smoking/Tobacco Use Status: Former Tobacco Use Passive smoking exposure: Yes Alcohol Alcohol Intake: current Alcohol intake frequency: holidays/special occasions only Substance Use Substance use: Daily Substance use type: marijuana Details: 07/18/24: smoked marijuana last on 07/17/24 Vital Signs and Lab Results Vital Signs Most Recent Vital Signs in EMR: Most Recent Vital Signs Temp Pulse Resp BP Pulse Ox 36.5 C 92 H 16 130/85 97 07/18/24 09:02 07/18/24 09:02 07/18/24 09:02 07/18/24 09:02 07/18/24 09:02 Point of Care Results Point of Care Results: Finger Stick Blood Glucose 100 07/18/24 09:14 Lab Results Blood Type / Crossmatch: No Data to Display Complete Blood Count: No Data to Display Complete Metabolic Panel: No Data to Display Liver Function Panel: No Data to Display Coagulation Panel: No Data to Display Cardiac Panel: No Data to Display Arterial Blood Gas: No Data to Display Venous Blood Gas: No Data to Display Pancreas Panel: No Data to Display Thyroid Panel: No Data to Display Infectious Disease: No Data to Display Blood Cultures: No Data to Display Toxicology Panel: No Data to Display Anesthesia Assessment and Plan Anesthesia History Personal History: PONV Family History: No Family History of Anesthesia Complications Exercise Tolerance Exercise Tolerance: Metabolic Equivalents>4 Pertinent Negatives Pertinent Negatives: No Symptoms of GERD Cardiac & Pulmonary Exam Cardiac Exam: Normal S1/S2 Heart Sounds Pulmonary Exam: Clear Bilateral Breath Sounds Implantable Cardiac Device Does patient have a Pacemaker or an ICD?: No Airway Exam Known Difficult Airway: No Mallampati Class: 2 Mouth Opening: Normal (> 3cm) Thyromental Distance: Greater than 3 cm Neck Range of Motion: Full ROM Neck Circumference: Normal Teeth Condition: Normal Dentition ASA Classification ASA Score: ASA 2 Emergency Case?: No NPO Status NPO Status: NPO Clears >2 hours, Solids >8 hours Anesthesia Plan Resuscitation Status: Full Code Anesthesia Technique: MAC Anesthesia Airway Planned: Natural Airway Monitors Used: Standard Monitors
[2024-07-18] MEDS: Tetracaine 0.5% 4 ML BTL OS (09:38)
[2024-07-18] MEDS: Povidone-Iodine Ophth 30 ML BTL (09:38)
[2024-07-18] MEDS: Balanced Salt Soln.-PLUS 500 ML BAG OP (09:43)
[2024-07-18] MEDS: Duovisc Viscoelastic System EACH 1 EACH (09:45)
[2024-07-18] MEDS: Lidocaine 1% Pres-Free 5 ML VIAL (09:45)
[2024-07-18] MEDS: Prednisolone 1%, Moxifloxacin 0.5%, Bromfenac 0.09% 5.6ML BTL OS (09:46)
[2024-07-18 10:03] VITALS: BP 121/75; PULSE 77; RESP 16; TEMP 36.5; O2SAT 96
--- NOTE | 2024-07-18 10:03 | W.PM.DSUDISC ---
Date of service: 07/18/24 Time of Service: 10:03 Discharge Plan Disposition Patient Disposition: Home Discharge Details Attending Provider: Andrea Torres Primary Care Provider: Ally Dalal Home Meds and New Rx's Prescriptions: No Action loratadine [Claritin] 10 mg tablet 10 mg PO DAILY PRN [id number]-[id number]-CP 3.5-10,000-1 mg/mL-unit/mL-% drops,suspension 4 drp otic (ear) Q8H 10 Days Qty: 10 1RF Rx Instructions: Trial for itching, inflamed ear canal albuterol sulfate [Ventolin HFA] 90 mcg/actuation HFA aerosol inhaler 2 puff Inhalation PRN PRN (Reason: shortness of breath or wheezing) Qty: 8.5 1RF (DME) Flexichamber Spacer See Rx Instructions .ROUTE .MEDSUPPLY Qty: 1 0RF Rx Instructions: As directed (DME) pen needle, diabetic 32 gauge x 1/5 needle See Rx Instructions .ROUTE .MEDSUPPLY Qty: 100 3RF Rx Instructions: For Victoza, for DM, E11.9 to maintain A1C under 7%; adm daily use multivitamin [One Daily Multivitamin] Tablet 1 tab PO DAILY MDD 1 tablet 90 Days Qty: 90 4RF Rx Instructions: Take 1 tablet daily at bedtime. albuterol sulfate 0.63 mg/3 mL solution for nebulization 0.63 mg IH QID PRN (Reason: shortness of breath or wheezing) Qty: 75 0RF Rx Instructions: Short term Rx for recent bronchitis... medical marijuana PO (DME) blood sugar diagnostic Strip See Rx Instructions .ROUTE .MEDSUPPLY Qty: 100 3RF Rx Instructions: Accucheck E11.9 to test blood sugars bid due to uncontrolled dm, goal AIC <7 (DME) blood-glucose meter Kit See Rx Instructions .ROUTE .MEDSUPPLY Qty: 1 0RF Rx Instructions: Accucheck to check BS bid to maintain A1c <7.0 Dx:E11.9 (DME) lancets [Accu-Chek Softclix Lancets] Misc See Rx Instructions .Route Rx Instructions: Check blood sugar twice a day. E11.9 (DME) Abdominal Binder See Rx Instructions .Route .MEDSUPPLY Qty: 1 1RF Rx Instructions: Pls evaluate for abdominal binder for pain, skin care, posture quetiapine 100 mg tablet 100 mg PO QHS Qty: 90 5RF Rx Instructions: Stay with 100mg metformin 1,000 mg tablet 1,000 mg PO BID Qty: 180 3RF omeprazole 40 mg capsule,delayed release(DR/EC) 40 mg PO DAILY Qty: 90 3RF acyclovir 200 mg capsule 200 mg PO TID Qty: 270 3RF urea 40 % cream 1 applic topical BID Qty: 28.35 1RF Rx Instructions: Trial for plaque-like lesions - PLEASE CALL PT WITH PRICING (ok to subst) hydrochlorothiazide 25 mg tablet 25 mg PO DAILY Qty: 90 3RF Ozempic 0.25 mg or 0.5 mg (2 mg/3 mL) pen injector 0.5 mg subcut QWEEK 28 Days Qty: 2.944 3RF Rx Instructions: Inject 0.5 mg subcutaneously once weekly losartan 25 mg tablet See Rx Instructions .ROUTE .COMPLEX Qty: 90 3RF Dose Instruction: TAKE 1 TABLET BY MOUTH DAILY MAY CHANGE TO COMBINATION PILL Rx Instructions: TAKE 1 TABLET BY MOUTH DAILY MAY CHANGE TO COMBINATION PILL clonidine HCl 0.1 mg tablet 0.1 mg PO QHS Qty: 90 3RF levothyroxine [Synthroid] 100 mcg tablet See Rx Instructions .ROUTE .COMPLEX Qty: 28 5RF Dose Instruction: TAKE 1 TABLET BY MOUTH DAILY (DOSE DECREASED) Rx Instructions: TAKE 1 TABLET BY MOUTH DAILY (DOSE DECREASED) duloxetine 30 mg capsule,delayed release(DR/EC) See Rx Instructions .ROUTE .COMPLEX Qty: 28 5RF Dose Instruction: TAKE 1 CAPSULE BY MOUTH DAILY WITH 60MG FOR DAILY TOTAL OF 90MG Rx Instructions: TAKE 1 CAPSULE BY MOUTH DAILY WITH 60MG FOR DAILY TOTAL OF 90MG duloxetine [Cymbalta] 60 mg capsule,delayed release(DR/EC) 60 mg PO DAILY MDD 90 Qty: 90 3RF Rx Instructions: 60+30 Discharge Instructions Stand Alone Forms: DSU Post-Op CataractGaby (DSU) Discharge Orders Discharge Orders: Discharge Order (Routine); Ordered 07/18/24 Ordered By: Andrea Torres DS: Diagnosis Discharge Diagnosis (1) Posterior subcapsular age-related cataract of left eye: Status: Resolved (2) Nuclear age-related cataract, left eye: Status: Resolved
--- NOTE | 2024-07-18 10:04 | ROE_ITS ---
Date of service: 07/18/24 Time of Service: 10:04 Operative Note Operative Note DATE OF PROCEDURE: 07/18/24 PRE-OP DIAGNOSIS: Nuclear/posterior subcapsular cataract, left eye POST-OP DIAGNOSIS: same PROCEDURE: Cataract extraction using phacoemulsification with intraocular lens implant, left eye SURGEON: Andrea Torres ANESTHESIA TYPE: Local By Surgeon and MAC Refer to Anesthesia Record PATHOLOGY: none sent COMPLICATIONS: None Patient was transported to: same day Patient's condition: stable Implants: Farnco Clareon [id number] Indications: Progressive decreased vision due to cataract, left eye Procedure Description: CATARACT SURGERY OPERATIVE REPORT PREOPERATIVE DIAGNOSIS: Nuclear/posterior subcapsular cataract, left eye POSTOPERATIVE DIAGNOSIS: Same OPERATION: Cataract extraction using phacoemulsification with posterior chamber intraocular lens implant, left eye. IOL: IOL Coordinate Measuring Machine Operator/Model: Franco Clareon [id number] IOL Power: + 19.5 diopters IOL Serial Number: [id number] Optic Diameter: 6.0mm Haptic/Overall Diameter: 13.0mm PHACO INFO: FrancoCaarbonurion Vision System with OZil and Active Fluidics Cumulative Dispersed Energy (CDE): 8.94 seconds SURGEON: Andrea Torres MD, JEANNETTE ANESTHESIA: Monitored Anesthesia Care (MAC), with local sub-tenon's anesthetic infiltration COMPLICATIONS: None SPECIMENS: None INDICATIONS FOR PROCEDURE: The patient is a 59-year-old lady with history of Stargardt's disease who has developed a symptomatic nuclear/posterior subcapsular cataract in the left eye. Visual acuity is limited by the presence of a pre-existing maculopathy, but she desires cataract surgery attempt improve and maximize her vision. The option of cataract surgery was offered to the patient and she wished to proceed. See office notes for detailed information. PROCEDURE: The correct surgical eye was identified and marked as the left eye and the pupil was dilated in the preoperative area using mydriatics and cycloplegics. The dilated pupil size was 8.0 mm. The patient elected to proceed without oral sedation. The patient was brought to the operating room where cardiopulmonary monitoring was instituted and surgical time-out was performed, confirming the correct operative eye and IOL power. Topical anesthesia was administered and ophthalmic povidone-iodine 5% was instilled into the conjunctival fornices. The ata-ocular area was prepped with Betadine 10% solution and draped in the usual sterile fashion for intraocular surgery, including an aperture drape. A Tegaderm transparent film dressing was cut in half and used to cover the lashes and lid margins. Care was taken to sequester the lashes and lid margins under the Tegaderm dressing. A lid speculum was placed between the lids of the operative eye and the Franco [employer] operating microscope was maneuvered into position. Sánchez scissors were then used to make a conjunctival buttonhole approximately 6mm posterior to the limbus in the inferonasal quadrant. Blunt dissection was carried out to expose bare sclera, and a blunt-tipped sub-tenon?s anesthesia cannula was introduced and passed posteriorly along the globe where non- preserved plain lidocaine was injected into posterior sub-Tenon?s space. A Mendel [employer] knife was used to make a paracentesis port. Intraocular phenylephrine/lidocaine was injected into the anterior chamber. The anterior chamber was then filled with viscoelastic. A keratome knife was used construct a two-plane clear corneal tunnel extending 2.0mm into clear cornea. A flap was raised on the anterior capsule and capsulorhexis forceps were used to complete a continuous curvilinear capsulorhexis of 5.0 mm. Balanced salt solution was then used to perform cortical cleaving hydrodissection and nuclear hydrodelineation until the lens could be freely rotated within the capsular bag. The lens nucleus was then disassembled and removed within the capsular bag and iris plane using phacoemulsification. Residual cortical material was removed using the irrigation/aspiration h andpiece. The posterior capsule was carefully polished to remove as much residual lens epithelial cells as safely possible. The capsular bag was then inflated and the anterior chamber deepened with viscoelastic. The lens implant described above was inserted into the capsular bag using the Franco Autonome Injector. A Kuglen hook was used to dial the IOL into position. Residual viscoelastic was then removed first from posterior to the IOL, then from the anterior chamber using the I/A handpiece. The lens implant was noted to center nicely within the capsular bag. The incisions were stromally hydrated, and the anterior chamber was reformed using BSS. Then 0.5cc of moxifloxacin 1.0mg/ml were injected into the capsular bag and anterior chamber. The incisions were checked with a Weck spear and found to be secure. Several drops of ophthalmic povidone-iodine 5% were then applied to the eye followed by two drops of combination steroid/NSAID/antibiotic solution. The drapes were removed and a clear plastic protective eye shield was placed over the eye. The patient was then returned to Same Day Surgery in stable condition.
--- NOTE | 2024-07-18 10:13 | W.ANESPOSTOP ---
Postoperative Evaluation Date, Time and Location Date Performed: 07/18/24 Time Performed: 10:13 Patient Location: Day Surgery Unit Vital Signs Most Recent Imported Vital Signs: Most Recent Vital Signs Temp Pulse Resp BP Pulse Ox 36.5 C 77 16 121/75 96 07/18/24 10:03 07/18/24 10:03 07/18/24 10:03 07/18/24 10:03 07/18/24 10:03 Pain Score Most Recent Pain Score: Most Recent Pain Score Pain Level 0 07/18/24 10:03 Assessment Mental Status: Awake (Alert & Oriented to Patient Baseline) Airway and Respiratory Function: Patent airway with normal (patient baseline) respiratory exam Cardiovascular Function: Hemodynamically Stable Hydration Status: Adequately Hydrated Nausea & Vomiting: No Nausea or Vomiting Pain: Pt. Denies Any Pain Peripheral Nerve Block: Patient did not receive a nerve block
== END 2024-07-18 10:13 | disposition home or self-care (01) ==
LOC: SUR 08:45
PROVIDERS: PCP Student in an Organized Health Care Education/Training Program; Visit Provider Ophthalmology
PROC: (CPT 66984; principal; 2024-07-18 11:30)
DX: H25.042 Posterior subcapsular polar age-related cataract, left eye (principal); H25.12 Age-related nuclear cataract, left eye
CPT/HCPCS: 66984; 00123; V2632; J2003

== ENCOUNTER 2024-08-01 06:45 | Day surgery (SDC) | payer MEDICARE, MEDICAID, SELFPAY ==
--- NOTE | 2024-08-01 06:18 | W.ANESPRE ---
General Info Date of Service Date Performed: 08/01/24 Height: 5 ft 5.5 in Weight: 86.9 kg Body Mass Index (BMI): 31.4 Surgical Procedure: Operation Date: 08/01/24 08:25 Proposed Procedure Side Surgeon p Cataract Extraction with IOL Implant Right Andrea Torres MD Meds Allergies and Home Medications Allergies Allergy/AdvReac Type Severity Reaction Status Date / Time gabapentin AdvReac Severe suicidal Verified 08/01/24 07:08 ideation, diaphoresis bupropion AdvReac Intermediate ill feeling Verified 08/01/24 07:08 codeine AdvReac Psychosis Verified 08/01/24 07:08 erythromycin base AdvReac Nausea Verified 08/01/24 07:08 lisinopril AdvReac feeling Verified 08/01/24 07:08 conklin, sweaty and jittery. per note 05/19/20 Penicillins AdvReac Headache Verified 08/01/24 07:08 venlafaxine AdvReac Conklin and Verified 08/01/24 07:08 sweating ([facility]) Home Medication ?Medication ?Instructions ?Recorded albuterol sulfate 0.63 mg/3 mL 0.63 mg (3 mL) inhalation QID PRN 08/23/18 solution for nebulization shortness of breath or wheezing #75 mL medical marijuana PO 08/28/19 inhalational spacing device #1 ea 09/11/20 (Flexichamber spacer) loratadine 10 mg tablet (Claritin) 10 mg PO DAILY PRN 12/10/20 [id number]-mogsntqxh-jzecrlkrl 3.5 4 drp otic (ear) Q8H 10 days #10 mL 01/20/22 mg-10,000 unit/mL-1 % ear drops,susp albuterol sulfate 90 mcg/actuation 2 puff inhalation PRN PRN 04/17/23 aerosol inhaler (Ventolin HFA) shortness of breath or wheezing #8.5 grams blood sugar diagnostic #100 ea 06/29/23 blood-glucose meter #1 ea 06/29/23 lancets (Accu-Chek Softclix 06/29/23 Lancets) Abdominal Binder #1 ea 07/08/23 pen needle, diabetic 32 gauge x #100 ea 08/20/23 1/5 multivitamin (One Daily 1 tab PO DAILY 90 days #90 tabs 08/31/23 Multivitamin tablet) acyclovir 200 mg capsule 200 mg PO TID #270 caps 10/19/23 metformin 1,000 mg tablet 1,000 mg PO BID #180 tabs 10/19/23 omeprazole 40 mg capsule,delayed 40 mg PO DAILY #90 tab-caps 10/19/23 release urea 40 % topical cream 1 applic topical BID #28.35 grams 01/11/24 hydrochlorothiazide 25 mg tablet 25 mg PO DAILY #90 tabs 03/07/24 semaglutide 0.25 mg or 0.5 mg (2 0.5 mg (0.736 mL) subcut QWEEK 28 03/27/24 mg/3 mL) subcutaneous pen injector days #2.944 mL (Ozempic) Synthroid 100 mcg tablet See Rx Instructions .Route 05/29/24 (levothyroxine) .COMPLEX #28 tabs clonidine HCl 0.1 mg tablet 0.1 mg PO QHS #90 tabs 05/29/24 duloxetine 30 mg capsule,delayed See Rx Instructions .Route 05/29/24 release .COMPLEX #28 caps losartan 25 mg tablet See Rx Instructions .Route 05/29/24 .COMPLEX #90 tabs duloxetine 60 mg capsule,delayed 60 mg PO DAILY #90 caps 06/24/24 release (Cymbalta) quetiapine 100 mg tablet 100 mg PO QHS #90 tabs 07/27/24 Current Visit Medications: Current Medications Generic Name Dose Route Start Last Admin Trade Name Freq PRN Reason Stop Dose Admin Acetaminophen 1,000 mg 08/01/24 06:00 Acetaminophen 500 Mg Tab PO 08/31/24 05:59 Q4H PRN PRN Balanced Salt Solution 500 ml 08/01/24 06:00 Balanced Salt Soln.-Plus 500 Ml Bag OP 08/31/24 05:59 DIRECTED DIEGO Miscellaneous Medication 0 ml 08/01/24 06:00 Prednisolone 1%, Moxifloxacin 0.5%, Bromfenac 0.09% 5.6ml Btl OD 08/31/24 05:59 DIRECTED DIEGO Miscellaneous Medication 0 ml 08/01/24 06:00 Tropicam./Phenyleph. (1/2.5%) 5 Ml Btl OD 08/31/24 05:59 DIRECTED DIEGO Tetracaine HCl 0 ml 08/01/24 06:00 Tetracaine 0.5% 4 Ml Btl OD 08/31/24 05:59 DIRECTED [facility] Active Problems Active Problems: Problem Status Onset Code Posterior subcapsular age-related cataract, right eye Acute H25.041 Nuclear age-related cataract, right eye Acute H25.11 Posterior subcapsular age-related cataract of left eye Resolved H25.042 Nuclear age-related cataract, left eye Resolved H25.12 Vision disorder Acute H53.9 Skin lesion Acute L98.9 Thyroiditis Acute E06.9 Mood disorder due to known physiological condition with depressive features Acute F06.31 Sensorineural hearing loss, bilateral Acute H90.3 Cervical spine degeneration Acute M47.812 Acute upper back pain Acute M54.9 ADHD (attention deficit hyperactivity disorder), combined type Acute F90.2 Major depressive disorder, recurrent Acute F33.9 Type 2 diabetes mellitus without complication, without long-term current use of insulin Acute 11/28/17 E11.9 EDGAR (obstructive sleep apnea) Acute 11/2011 G47.33 Hypothyroidism Acute 10/01/14 E03.9 Hyperlipidemia Acute 11/02/17 E78.5 Fibromyalgia Acute 11/02/17 M79.7 Essential hypertension Acute 11/02/17 I10 Degenerative disc disease, cervical Acute 11/02/17 M50.30 Anxiety Acute 11/02/17 F41.9 Medical History Medical History Other specified diabetes mellitus without complications (11/02/17) A1C 5.7 (Nov 2017), met w/ [facility], BP/Labwork acceptable. Low dose AceI, mod Metformin dose. Support less meds as BS level Hx shows leveling and BMI improves. Chronic post-traumatic stress disorder (PTSD) (11/02/17) Nightmares, residual fear that she will be followed (by man who may find her thru mutual friend here in area) Pain at surgical incision Scar tissue Skin abnormalities Chronic pain of left heel Pessary maintenance pt. states she does not have this any longer CARIN (stress urinary incontinence, female) Improved post annulectomy Mixed stress and urge urinary incontinence Some relief post pannulectomy! History of colon polyps Herpes zoster without complication (11/02/17) Herpes simplex (11/02/17) Staphylococcal infection of skin Post pancolectomy Abnormal smell Minimal post colectomy ..long Hx malodorous intertrigo, pannus infection. Intertrigo Presumed emelia COVID (10/17/21) Binge eating disorder Hx estrogen therapy Has greatly helped with depression .. D/C'd 04/2020 by [facility] 2' high BPs. Doing terribly with mood/depression, 05/26/20. Abdominal pannus Recovering post pancolectomy recommending pannilectomy ([facility]) Lower abdominal central weight (pooch), after weight loss of significant size/inches, but not this cabazon of weight. Former tobacco use smoked 1 ppd quit and pt states she did not smoke for 30 yrs. Low Scan Chest ct not indicated. 08/20/19 cgc Iliotibial band syndrome of right side (02/12/19) > possible Dx, appreciate PT Evaluation Tubular adenoma of colon (07/23/13) Migraine headache (11/02/17) Insomnia (11/02/17) Depression (11/02/17) Long Hx with exacerbating event just over a year ago. Moving here from [place] is a helpful move. Quet used for just near a year. admission 01/19/16-01/26/16 suicidal ideation/depression Cervical radiculopathy (11/02/17) post C3-C7 surgery (frontal approach scar), plate/coil () Alcohol abuse (11/02/17) Surgical History Surgical History S/P panniculectomy (12/29/22) History of surgery Neck surgery [facility] (01/29/18) Open Carpal Tunnel release (01/13/13) Bilateral Knee Surgery knee reconstruction Hysterectomy (10/21/10) Fibroids Elbow Surgery Colonoscopy w/ Bx (07/22/13) Polyps, therefore 5 yr FU Tobacco Smoking/Tobacco Use Status: Former Tobacco Use Passive smoking exposure: Yes Alcohol Alcohol Intake: current Alcohol intake frequency: holidays/special occasions only Substance Use Substance use: Daily Substance use type: marijuana Vital Signs and Lab Results Vital Signs Most Recent Vital Signs in EMR: Temp Pulse Resp BP Pulse Ox 36.2 C L 95 H 16 127/82 98 08/01/24 07:01 08/01/24 07:01 08/01/24 07:01 08/01/24 07:01 08/01/24 07:01 Lab Results Blood Type / Crossmatch: No Data to Display Complete Blood Count: No Data to Display Complete Metabolic Panel: No Data to Display Liver Function Panel: No Data to Display Coagulation Panel: No Data to Display Cardiac Panel: No Data to Display Arterial Blood Gas: No Data to Display Venous Blood Gas: No Data to Display Pancreas Panel: No Data to Display Thyroid Panel: No Data to Display Infectious Disease: No Data to Display Blood Cultures: No Data to Display Toxicology Panel: No Data to Display Anesthesia Assessment and Plan Anesthesia History Personal History: No History of Anesthesia Complications Family History: No Family History of Anesthesia Complications Exercise Tolerance Exercise Tolerance: Metabolic Equivalents>4 Cardiac & Pulmonary Exam Cardiac Exam: Normal S1/S2 Heart Sounds Pulmonary Exam: Clear Bilateral Breath Sounds Implantable Cardiac Device Does patient have a Pacemaker or an ICD?: No Airway Exam Known Difficult Airway: No Mallampati Class: 2 Mouth Opening: Normal (> 3cm) Thyromental Distance: Greater than 3 cm Neck Range of Motion: Full ROM Neck Circumference: Normal Teeth Condition: Normal Dentition ASA Classification ASA Score: ASA 2 Emergency Case?: No NPO Status NPO Status: NPO Clears >2 hours, Solids >8 hours Anesthesia Plan Resuscitation Status: Full Code Anesthesia Technique: MAC Anesthesia Airway Planned: Natural Airway Monitors Used: Standard Monitors Preoperative Comments:: 59 yo for cataract removal. previous eye with no MKO. no issues
[2024-08-01 07:01] VITALS: BP 127/82; PULSE 95; RESP 16; TEMP 36.2; O2SAT 98
[2024-08-01] MEDS: Tropicam./Phenyleph. (1/2.5%) 5 ML BTL OD ×3 (07:02→07:14)
[2024-08-01 07:18] VITALS: BMI 31.4
[2024-08-01] MEDS: Tetracaine 0.5% 4 ML BTL OD (08:17)
[2024-08-01] MEDS: Prednisolone 1%, Moxifloxacin 0.5%, Bromfenac 0.09% 5.6ML BTL OD (08:26)
[2024-08-01] MEDS: Lidocaine 1% Pres-Free 5 ML VIAL (08:28)
[2024-08-01] MEDS: Duovisc Viscoelastic System EACH 1 EACH (08:28)
[2024-08-01] MEDS: Povidone-Iodine Ophth 30 ML BTL (08:31)
[2024-08-01] MEDS: Balanced Salt Soln.-PLUS 500 ML BAG OP (08:32)
[2024-08-01 08:48] VITALS: BP 122/82; PULSE 70; RESP 16; TEMP 36.2; O2SAT 94
--- NOTE | 2024-08-01 08:50 | W.PM.DSUDISC ---
Date of service: 08/01/24 Time of Service: 08:50 Discharge Plan Disposition Patient Disposition: Home Discharge Details Attending Provider: Andrea Torres Primary Care Provider: Ally Dalal Home Meds and New Rx's Prescriptions: No Action loratadine [Claritin] 10 mg tablet 10 mg PO DAILY PRN vspudxzv-tqyhlfrho-TA 3.5-10,000-1 mg/mL-unit/mL-% drops,suspension 4 drp otic (ear) Q8H 10 Days Qty: 10 1RF Rx Instructions: Trial for itching, inflamed ear canal albuterol sulfate [Ventolin HFA] 90 mcg/actuation HFA aerosol inhaler 2 puff Inhalation PRN PRN (Reason: shortness of breath or wheezing) Qty: 8.5 1RF (DME) Flexichamber Spacer See Rx Instructions .ROUTE .MEDSUPPLY Qty: 1 0RF Rx Instructions: As directed (DME) pen needle, diabetic 32 gauge x 1/5 needle See Rx Instructions .ROUTE .MEDSUPPLY Qty: 100 3RF Rx Instructions: For Victoza, for DM, E11.9 to maintain A1C under 7%; adm daily use multivitamin [One Daily Multivitamin] Tablet 1 tab PO DAILY MDD 1 tablet 90 Days Qty: 90 4RF Rx Instructions: Take 1 tablet daily at bedtime. albuterol sulfate 0.63 mg/3 mL solution for nebulization 0.63 mg IH QID PRN (Reason: shortness of breath or wheezing) Qty: 75 0RF Rx Instructions: Short term Rx for recent bronchitis... medical marijuana PO (DME) blood sugar diagnostic Strip See Rx Instructions .ROUTE .MEDSUPPLY Qty: 100 3RF Rx Instructions: Accucheck E11.9 to test blood sugars bid due to uncontrolled dm, goal AIC <7 (DME) blood-glucose meter Kit See Rx Instructions .ROUTE .MEDSUPPLY Qty: 1 0RF Rx Instructions: Accucheck to check BS bid to maintain A1c <7.0 Dx:E11.9 (DME) lancets [Accu-Chek Softclix Lancets] Misc See Rx Instructions .Route Rx Instructions: Check blood sugar twice a day. E11.9 (DME) Abdominal Binder See Rx Instructions .Route .MEDSUPPLY Qty: 1 1RF Rx Instructions: Pls evaluate for abdominal binder for pain, skin care, posture metformin 1,000 mg tablet 1,000 mg PO BID Qty: 180 3RF omeprazole 40 mg capsule,delayed release(DR/EC) 40 mg PO DAILY Qty: 90 3RF acyclovir 200 mg capsule 200 mg PO TID Qty: 270 3RF urea 40 % cream 1 applic topical BID Qty: 28.35 1RF Rx Instructions: Trial for plaque-like lesions - PLEASE CALL PT WITH PRICING (ok to subst) hydrochlorothiazide 25 mg tablet 25 mg PO DAILY Qty: 90 3RF Ozempic 0.25 mg or 0.5 mg (2 mg/3 mL) pen injector 0.5 mg subcut QWEEK 28 Days Qty: 2.944 3RF Rx Instructions: Inject 0.5 mg subcutaneously once weekly losartan 25 mg tablet See Rx Instructions .ROUTE .COMPLEX Qty: 90 3RF Dose Instruction: TAKE 1 TABLET BY MOUTH DAILY MAY CHANGE TO COMBINATION PILL Rx Instructions: TAKE 1 TABLET BY MOUTH DAILY MAY CHANGE TO COMBINATION PILL clonidine HCl 0.1 mg tablet 0.1 mg PO QHS Qty: 90 3RF levothyroxine [Synthroid] 100 mcg tablet See Rx Instructions .ROUTE .COMPLEX Qty: 28 5RF Dose Instruction: TAKE 1 TABLET BY MOUTH DAILY (DOSE DECREASED) Rx Instructions: TAKE 1 TABLET BY MOUTH DAILY (DOSE DECREASED) duloxetine 30 mg capsule,delayed release(DR/EC) See Rx Instructions .ROUTE .COMPLEX Qty: 28 5RF Dose Instruction: TAKE 1 CAPSULE BY MOUTH DAILY WITH 60MG FOR DAILY TOTAL OF 90MG Rx Instructions: TAKE 1 CAPSULE BY MOUTH DAILY WITH 60MG FOR DAILY TOTAL OF 90MG duloxetine [Cymbalta] 60 mg capsule,delayed release(DR/EC) 60 mg PO DAILY MDD 90 Qty: 90 3RF Rx Instructions: 60+30 quetiapine 100 mg tablet 100 mg PO QHS Qty: 90 5RF Rx Instructions: Stay with 100mg Discharge Instructions Stand Alone Forms: DSU Post-Op CataractGaby (DSU) Discharge Orders Discharge Orders: Discharge Order (Routine); Ordered 08/01/24 Ordered By: Andrea Torres DS: Diagnosis Discharge Diagnosis (1) Posterior subcapsular age-related cataract, right eye: Status: Resolved (2) Nuclear age-related cataract, right eye: Status: Resolved
--- NOTE | 2024-08-01 08:51 | ROE_ITS ---
Date of service: 08/01/24 Time of Service: 08:51 Operative Note Operative Note DATE OF PROCEDURE: 08/01/24 PRE-OP DIAGNOSIS: Nuclear/posterior subcapsular cataract, right eye POST-OP DIAGNOSIS: same PROCEDURE: Cataract extraction using phacoemulsification with intraocular lens implant, right eye SURGEON: Andrea Torres ANESTHESIA TYPE: Local By Surgeon and MAC Refer to Anesthesia Record ESTIMATED BLOOD LOSS: 0 PATHOLOGY: none sent COMPLICATIONS: None Patient was transported to: same day Patient's condition: stable Implants: Franco Clareon [id number] Indications: Progressive decreased vision due to cataract, right eye Procedure Description: CATARACT SURGERY OPERATIVE REPORT PREOPERATIVE DIAGNOSIS: Nuclear/posterior subcapsular cataract, right eye POSTOPERATIVE DIAGNOSIS: Same OPERATION: Cataract extraction using phacoemulsification with posterior chamber intraocular lens implant, right eye. IOL: IOL In Tube Conversion Technician/Model: Franco Clareon [id number] IOL Power: + 19.5 diopters IOL Serial Number: [id number] Optic Diameter: 6.0mm Haptic/Overall Diameter: 13.0mm PHACO INFO: Franco [employer] Vision System with OZil and Active Fluidics Cumulative Dispersed Energy (CDE): 3.50 seconds SURGEON: Andrea Torres MD, JEANNETTE ANESTHESIA: Monitored Anesthesia Care (MAC), with local sub-tenon's anesthetic infiltration, intravenous sedation COMPLICATIONS: None SPECIMENS: None INDICATIONS FOR PROCEDURE: The patient is a 59-year-old lady with history of diminished visual acuity in both eyes secondary to the development of bilateral nuclear/posterior subcapsular cataract. She has already undergone cataract surgery in the left eye and is doing well postoperatively. She now presents for cataract surgery in the right eye. See office notes for detailed information. PROCEDURE: The correct surgical eye was identified and marked as the right eye and the pupil was dilated in the preoperative area using mydriatics and cycloplegics. The dilated pupil size was [] mm. Oral sedation was administered in the form of an Imprimis MKO Melt (midazolam 3mg/ketamine 25mg/ondansetron 2mg). The patient elected to proceed without oral sedation. The patient was brought to the operating room where cardiopulmonary monitoring was instituted and surgical time-out was performed, confirming the correct operative eye and IOL power. Topical anesthesia was administered and ophthalmic povidone-iodine 5% was inst illed into the conjunctival fornices. The ata-ocular area was prepped with Betadine 10% solution and draped in the usual sterile fashion for intraocular surgery, including an aperture drape. A Tegaderm transparent film dressing was cut in half and used to cover the lashes and lid margins. Care was taken to sequester the lashes and lid margins under the Tegaderm dressing. A lid speculum was placed between the lids of the operative eye and the Franco [employer] operating microscope was maneuvered into position. Sánchez scissors were then used to make a conjunctival buttonhole approximately 6mm posterior to the limbus in the inferonasal quadrant. Blunt dissection was carried out to expose bare sclera, and a blunt-tipped sub-tenon?s anesthesia cannula was introduced and passed posteriorly along the globe where non- preserved plain lidocaine was injected into posterior sub-Tenon?s space. A sideport knife was used to make a paracentesis port. At this point the patient began feeling quite anxious. The procedure was stopped and IV was started and she was given 1 mg of IV Versed. Intraocular phenylephrine/lidocaine was injected into the anterior chamber. The anterior chamber was then filled with viscoelastic. A keratome knife was used to construct a two--plane clear corneal tunnel extending 2.0mm into clear cornea. A flap was raised on the anterior capsule and capsulorhexis forceps were used to complete a continuous curvilinear capsulorhexis of 5.5 mm. Balanced salt solution was then used to perform cortical cleaving hydrodissection and nuclear hydrodelineation until the lens could be freely rotated within the capsular bag. The lens nucleus was then disassembled and removed within the capsular bag and iris plane using phacoemulsification. Residual cortical material was removed using the I/A handpiece. The posterior capsule was carefully polished to remove as much residual lens epithelial cells as safely possible. The capsular bag was then inflated and the anterior chamber deepened with cohesive viscoelastic. The lens implant described above was inserted into the capsular bag using the Franco Autonome Injector. A Kuglen hook was used to dial the IOL into position. Residual viscoelastic was then removed first from posterior to the IOL, then from the anterior chamber using the I/A handpiece. The lens implant was noted to center nicely within the capsular bag. The incisions were stromally hydrated, and the anterior chamber was reformed using BSS. Then 0.5cc of moxifloxacin 1.0mg/ml were injected into the capsular bag and anterior chamber. The incisions were checked with a Weck spear and found to be secure. Several drops of ophthalmic povidone-iodine 5% were then applied to the eye followed by two drops of combination steroid/NSAID/antibiotic solution. The drapes were removed and a clear plastic protective eye shield was placed over the eye. The patient was then returned to [facility] Day Surgery in stable condition.
--- NOTE | 2024-08-01 08:56 | W.ANESPOSTOP ---
Postoperative Evaluation Date, Time and Location Date Performed: 08/01/24 Time Performed: 08:56 Patient Location: Day Surgery Unit Vital Signs Most Recent Imported Vital Signs: Most Recent Vital Signs Temp Pulse Resp BP Pulse Ox 36.2 C L 70 16 122/82 94 08/01/24 08:48 08/01/24 08:48 08/01/24 08:48 08/01/24 08:48 08/01/24 08:48 Pain Score Most Recent Pain Score: Most Recent Pain Score Pain Level 0 08/01/24 08:48 Assessment Mental Status: Awake (Alert & Oriented to Patient Baseline) Airway and Respiratory Function: Patent airway with normal (patient baseline) respiratory exam Cardiovascular Function: Hemodynamically Stable Hydration Status: Adequately Hydrated Nausea & Vomiting: No Nausea or Vomiting Pain: Pt. Denies Any Pain Peripheral Nerve Block: Patient did not receive a nerve block
[2024-08-01 09:10] VITALS: BP 138/84; PULSE 80; RESP 16; TEMP 36; O2SAT 97
== END 2024-08-01 09:13 | disposition home or self-care (01) ==
LOC: SUR 06:46
PROVIDERS: PCP Student in an Organized Health Care Education/Training Program; Visit Provider Ophthalmology
PROC: (CPT 66984; principal; 2024-08-01 08:15)
DX: H25.041 Posterior subcapsular polar age-related cataract, right eye (principal); H25.11 Age-related nuclear cataract, right eye
CPT/HCPCS: 66984; 00123; V2632; J2003; J2250

== ENCOUNTER 2025-01-08 11:43 | Emergency (ER) | payer MEDICARE, MEDICAID, SELFPAY ==
[2025-01-08 11:53] VITALS: BP 118/81; PULSE 104; RESP 18; TEMP 36.6; O2SAT 96
--- NOTE | 2025-01-08 12:45 | DI.RAD_ITS ---
Exam(s) XR CHEST 2V PA LATERAL EXAM: XR CHEST 2V PA LATERAL CLINICAL HISTORY: COUGH. TECHNIQUE: 2D digital imaging was performed. COMPARISON: No exams were available for comparison FINDINGS: 2 views: Heart size is normal. The mediastinum is not widened. Lungs are clear. No infiltrates nor pleural effusions. Fusion plate in the lower cervical spine noted IMPRESSION: No acute pulmonary findings. DATA REPOSITORY: RADIATION DOSE DELIVERED:
[2025-01-08] MEDS: Albuterol/Ipratropium 3 ML UPD VIAL UPD (13:47)
[2025-01-08] MEDS: methylPREDNISolone SUCC 125 MG VIAL IVP (13:55)
[2025-01-08] MEDS: Ondansetron 4 MG/2 ML VIAL IVP (13:55)
[2025-01-08] MEDS: Normal Saline 1,000 ML 1000 ML IV (13:58)
[2025-01-08] MEDS: Albuterol HFA 8 GM 60 PUFF INH IH (14:56)
[2025-01-08 15:00] VITALS: BP 120/71; PULSE 92; RESP 18; O2SAT 97
[2025-01-08 15:09] VITALS: BP 118/81; PULSE 104; RESP 18; TEMP 36.6; O2SAT 96
--- NOTE | 2025-01-08 15:42 | ED.GENADUL_ITS ---
Discharge Plan Disposition Patient Disposition: Home Condition: Stable Discharge Details Clinical Impression: URI (upper respiratory infection), Cough Primary Care Provider: Ally Dalal ED Provider: All Lucia Home Meds and New Rx's Prescriptions: New promethazine 6.25 mg/5 mL syrup 12.5 mg PO Q6H PRN (Reason: cough) Qty: 120 0RF benzonatate 100 mg capsule 100 mg PO TID PRN (Reason: cough) Qty: 30 0RF ondansetron 4 mg tablet,disintegrating 4 mg PO Q6H PRN (Reason: nausea and vomiting) Qty: 30 0RF prednisone 20 mg tablet 40 mg PO DAILY 4 Days Qty: 8 0RF No Action loratadine [Claritin] 10 mg tablet 10 mg PO DAILY PRN [id number]-[id number] 3.5-10,000-1 mg/mL-unit/mL-% drops,suspension 4 drp otic (ear) Q8H 10 Days Qty: 10 1RF Rx Instructions: Trial for itching, inflamed ear canal albuterol sulfate [Ventolin HFA] 90 mcg/actuation HFA aerosol inhaler 2 puff Inhalation PRN PRN (Reason: shortness of breath or wheezing) Qty: 8.5 1RF (DME) Flexichamber Spacer See Rx Instructions .ROUTE .MEDSUPPLY Qty: 1 0RF Rx Instructions: As directed (DME) pen needle, diabetic 32 gauge x 1/5 needle See Rx Instructions .ROUTE .MEDSUPPLY Qty: 100 3RF Rx Instructions: For Victoza, for DM, E11.9 to maintain A1C under 7%; adm daily use albuterol sulfate 0.63 mg/3 mL solution for nebulization 0.63 mg IH QID PRN (Reason: shortness of breath or wheezing) Qty: 75 0RF Rx Instructions: Short term Rx for recent bronchitis... medical marijuana PO (DME) blood sugar diagnostic Strip See Rx Instructions .ROUTE .MEDSUPPLY Qty: 100 3RF Rx Instructions: Accucheck E11.9 to test blood sugars bid due to uncontrolled dm, goal AIC <7 (DME) blood-glucose meter Kit See Rx Instructions .ROUTE .MEDSUPPLY Qty: 1 0RF Rx Instructions: Accucheck to check BS bid to maintain A1c <7.0 Dx:E11.9 (DME) lancets [Accu-Chek Softclix Lancets] Misc See Rx Instructions .Route Rx Instructions: Check blood sugar twice a day. E11.9 (DME) Abdominal Binder See Rx Instructions .Route .MEDSUPPLY Qty: 1 1RF Rx Instructions: Pls evaluate for abdominal binder for pain, skin care, posture urea 40 % cream 1 applic topical BID Qty: 28.35 1RF Rx Instructions: Trial for plaque-like lesions - PLEASE CALL PT WITH PRICING (ok to subst) hydrochlorothiazide 25 mg tablet 25 mg PO DAILY Qty: 90 3RF losartan 25 mg tablet See Rx Instructions .ROUTE .COMPLEX Qty: 90 3RF Dose Instruction: TAKE 1 TABLET BY MOUTH DAILY MAY CHANGE TO COMBINATION PILL Rx Instructions: TAKE 1 TABLET BY MOUTH DAILY MAY CHANGE TO COMBINATION PILL clonidine HCl 0.1 mg tablet 0.1 mg PO QHS Qty: 90 3RF duloxetine [Cymbalta] 60 mg capsule,delayed release(DR/EC) 60 mg PO DAILY MDD 90 Qty: 90 3RF Rx Instructions: 60+30 quetiapine 100 mg tablet 100 mg PO QHS Qty: 90 5RF Rx Instructions: Stay with 100mg Ozempic 0.25 mg or 0.5 mg (2 mg/3 mL) pen injector 0.5 mg subcut QWEEK 28 Days Qty: 2.944 3RF Rx Instructions: Inject 0.5 mg subcutaneously once weekly duloxetine 30 mg capsule,delayed release(DR/EC) See Rx Instructions .ROUTE .COMPLEX Qty: 28 5RF Dose Instruction: TAKE 1 CAPSULE BY MOUTH DAILY WITH 60MG FOR DAILY TOTAL OF 90MG Rx Instructions: TAKE 1 CAPSULE BY MOUTH DAILY WITH 60MG FOR DAILY TOTAL OF 90MG levothyroxine [Synthroid] 100 mcg tablet See Rx Instructions .ROUTE .COMPLEX Qty: 28 5RF Dose Instruction: TAKE 1 TABLET BY MOUTH DAILY (DOSE DECREASED) Rx Instructions: TAKE 1 TABLET BY MOUTH DAILY (DOSE DECREASED) acyclovir 200 mg capsule See Rx Instructions .ROUTE .COMPLEX Qty: 84 0RF Dose Instruction: TAKE 1 CAPSULE BY MOUTH THREE TIMES A DAY Rx Instructions: TAKE 1 CAPSULE BY MOUTH THREE TIMES A DAY multivitamin with folic acid [Daily-Gely (with folic acid)] 400 mcg tablet See Rx Instructions .ROUTE .COMPLEX Qty: 28 0RF Dose Instruction: TAKE 1 TABLET BY MOUTH DAILY Rx Instructions: TAKE 1 TABLET BY MOUTH DAILY omeprazole 40 mg capsule,delayed release(DR/EC) See Rx Instructions .ROUTE .COMPLEX Qty: 28 0RF Dose Instruction: TAKE 1 CAPSULE BY MOUTH DAILY Rx Instructions: TAKE 1 CAPSULE BY MOUTH DAILY metformin 1,000 mg tablet See Rx Instructions .ROUTE .COMPLEX Qty: 56 0RF Dose Instruction: TAKE 1 TABLET BY MOUTH TWICE A DAY Rx Instructions: TAKE 1 TABLET BY MOUTH TWICE A DAY Discharge Instructions Instructions: Viral Upper Respiratory Infection, Adult (DC) Additional Instructions: Your chest x-ray does not reveal a consolidation consistent with a pneumonia You were given medications to help your cough At home continues to to use the albuterol inhaler with spacer every 4 hours. Start the steroids as prescribed tomorrow If your symptoms are not improving or you are continuing to have worsening cough or shortness of breath, please return to the emergency department for reevaluation as you may need a repeat chest HPI General Date/Time Provider Initiated Documentation: 01/08/25 11:57 . Limitations to Documentation: no limitations . Information obtained by: patient . HPI Narrative: 59-year-old female with past medical history of diabetes, EDGAR, hypertension presents for evaluation of cough and URI symptoms. She reports that she has been having symptoms since Sunday. Her symptoms include fever, chills, body aches. She reports cough productive of mucus which she describes as what ever color it wants to be. She reports that she has pain with her cough but denies any chest pain. She reports persistent fever. She reports some lightheadedness worse with standing as well as some nausea but no vomiting. Related Data Home Medications ?Medication ?Instructions ?Recorded ?Confirmed albuterol sulfate 0.63 mg/3 mL 0.63 mg (3 mL) inhalation QID PRN 08/23/18 08/01/24 solution for nebulization shortness of breath or wheezing #75 mL medical marijuana PO 08/28/19 12/25/23 inhalational spacing device #1 ea 09/11/20 12/25/23 (Flexichamber spacer) loratadine 10 mg tablet (Claritin) 10 mg PO DAILY PRN 12/10/20 08/01/24 [id number] 3.5 4 drp otic (ear) Q8H 10 days #10 mL 01/20/22 08/01/24 mg-10,000 unit/mL-1 % ear drops,susp albuterol sulfate 90 mcg/actuation 2 puff inhalation PRN PRN 04/17/23 08/01/24 aerosol inhaler (Ventolin HFA) shortness of breath or wheezing #8.5 grams blood sugar diagnostic #100 ea 06/29/23 12/25/23 blood-glucose meter #1 ea 06/29/23 12/25/23 lancets (Accu-Chek Softclix 06/29/23 12/25/23 Lancets) Abdominal Binder #1 ea 07/08/23 12/25/23 pen needle, diabetic 32 gauge x #100 ea 08/20/23 12/25/2311/23 urea 40 % topical cream 1 applic topical BID #28.35 grams 01/11/24 08/01/24 hydrochlorothiazide 25 mg tablet 25 mg PO DAILY #90 tabs 03/07/24 08/01/24 clonidine HCl 0.1 mg tablet 0.1 mg PO QHS #90 tabs 05/29/24 08/01/24 losartan 25 mg tablet See Rx Instructions .Route 05/29/24 08/01/24 .COMPLEX #90 tabs duloxetine 60 mg capsule,delayed 60 mg PO DAILY #90 caps 06/24/24 08/01/24 release (Cymbalta) quetiapine 100 mg tablet 100 mg PO QHS #90 tabs 07/27/24 08/01/24 semaglutide 0.25 mg or 0.5 mg (2 0.5 mg (0.736 mL) subcut QWEEK 28 10/02/24 mg/3 mL) subcutaneous pen injector days #2.944 mL (Ozempic) Synthroid 100 mcg tablet See Rx Instructions .Route 11/14/24 (levothyroxine) .COMPLEX #28 tabs duloxetine 30 mg capsule,delayed See Rx Instructions .Route 11/14/24 release .COMPLEX #28 caps acyclovir 200 mg capsule See Rx Instructions .Route 01/05/25 .COMPLEX #84 caps metformin 1,000 mg tablet See Rx Instructions .Route 01/05/25 .COMPLEX #56 tabs multivitamin with folic acid 400 See Rx Instructions .Route 01/05/25 mcg tablet (Daily-Gely (with folic .COMPLEX #28 tabs acid)) omeprazole 40 mg capsule,delayed See Rx Instructions .Route 01/05/25 release .COMPLEX #28 caps benzonatate 100 mg capsule 100 mg PO TID PRN cough #30 caps 01/08/25 ondansetron 4 mg disintegrating 4 mg PO Q6H PRN nausea and 01/08/25 tablet vomiting #30 tabs prednisone 20 mg tablet 40 mg (2 x 20 mg) PO DAILY 4 days 01/08/25 #8 tabs promethazine 6.25 mg/5 mL oral 12.5 mg (10 mL) PO Q6H PRN cough 01/08/25 syrup #120 mL Previous Rx's ?Medication ?Instructions ?Recorded albuterol sulfate 0.63 mg/3 mL 0.63 mg (3 mL) inhalation QID PRN 08/23/18 solution for nebulization shortness of breath or wheezing #75 mL inhalational spacing device #1 ea 09/11/20 (Flexichamber spacer) [id number]-rrnnlnuqt 3.5 4 drp otic (ear) Q8H 10 days #10 mL 01/20/22 mg-10,000 unit/mL-1 % ear drops,susp albuterol sulfate 90 mcg/actuation 2 puff inhalation PRN PRN 04/17/23 aerosol inhaler (Ventolin HFA) shortness of breath or wheezing #8.5 grams blood sugar diagnostic #100 ea 06/29/23 blood-glucose meter #1 ea 06/29/23 Abdominal Binder #1 ea 07/08/23 pen needle, diabetic 32 gauge x #100 ea 08/20/23 1/5 urea 40 % topical cream 1 applic topical BID #28.35 grams 01/11/24 hydrochlorothiazide 25 mg tablet 25 mg PO DAILY #90 tabs 03/07/24 clonidine HCl 0.1 mg tablet 0.1 mg PO QHS #90 tabs 05/29/24 losartan 25 mg tablet See Rx Instructions .Route 05/29/24 .COMPLEX #90 tabs duloxetine 60 mg capsule,delayed 60 mg PO DAILY #90 caps 06/24/24 release (Cymbalta) quetiapine 100 mg tablet 100 mg PO QHS #90 tabs 07/27/24 semaglutide 0.25 mg or 0.5 mg (2 0.5 mg (0.736 mL) subcut QWEEK 28 10/02/24 mg/3 mL) subcutaneous pen injector days #2.944 mL (Ozempic) Synthroid 100 mcg tablet See Rx Instructions .Route 11/14/24 (levothyroxine) .COMPLEX #28 tabs duloxetine 30 mg capsule,delayed See Rx Instructions .Route 11/14/24 release .COMPLEX #28 caps acyclovir 200 mg capsule See Rx Instructions .Route 01/05/25 .COMPLEX #84 caps metformin 1,000 mg tablet See Rx Instructions .Route 01/05/25 .COMPLEX #56 tabs multivitamin with folic acid 400 See Rx Instructions .Route 01/05/25 mcg tablet (Daily-Gely (with folic .COMPLEX #28 tabs acid)) omeprazole 40 mg capsule,delayed See Rx Instructions .Route 01/05/25 release .COMPLEX #28 caps benzonatate 100 mg capsule 100 mg PO TID PRN cough #30 caps 01/08/25 ondansetron 4 mg disintegrating 4 mg PO Q6H PRN nausea and 01/08/25 tablet vomiting #30 tabs prednisone 20 mg tablet 40 mg (2 x 20 mg) PO DAILY 4 days 01/08/25 #8 tabs promethazine 6.25 mg/5 mL oral 12.5 mg (10 mL) PO Q6H PRN cough 01/08/25 syrup #120 mL Allergies Allergy/AdvReac Type Severity Reaction Status Date / Time gabapentin AdvReac Severe suicidal Verified 01/08/25 11:59 ideation, diaphoresis bupropion AdvReac Intermediate ill feeling Verified 01/08/25 11:59 codeine AdvReac Psychosis Verified 01/08/25 11:59 erythromycin base AdvReac Nausea Verified 01/08/25 11:59 lisinopril AdvReac feeling Verified 01/08/25 11:59 conklin, sweaty and jittery. per note 05/19/20 Penicillins AdvReac Headache Verified 01/08/25 11:59 venlafaxine AdvReac [place]klin and Verified 01/08/25 11:59 sweating ([facility]) General Stated Complaint: RespSymp MATT: 3 Exam Narrative Exam Narrative: Review of Systems: All systems reviewed & are unremarkable except as noted in HPI and below Well-developed, coughing frequently NCAT RRR, no murmur Diminished air movement, some expiratory wheezing particularly with the cough. No hypoxia Nondistended abdomen Extremities w/o edema Course Vital Signs Vital signs: Vital Signs Temperature 36.6 C 01/08/25 11:53 Pulse 104 H 01/08/25 11:53 Respiratory Rate 18 01/08/25 11:53 Blood Pressure 118/81 01/08/25 11:53 Pulse Oximetry 96 01/08/25 11:53 Temperature 36.6 C 01/08/25 15:09 Temperature Source Oral 01/08/25 11:53 Pulse 104 H 01/08/25 15:09 Respiratory Rate 18 01/08/25 15:09 Respiratory Effort Normal, Non-Labored 01/08/25 15:01 Respiratory Depth Normal 01/08/25 15:01 Blood Pressure 118/81 01/08/25 15:09 Blood Pressure Position Sitting 01/08/25 11:53 Pulse Oximetry 96 01/08/25 15:09 Oxygen Delivery Method Room Air 01/08/25 11:53 Oxygen Flow Rate 0 01/08/25 11:53 Pain Level 8 01/08/25 11:53 Medical Decision Making Emergent evaluation of cough and URI symptoms. Patient is noted to be slightly tachycardic but afebrile. She is mostly complaining of respiratory symptoms, but there is no hypoxia or signs of acute respiratory failure. Initial differential includes viral illness, pneumonia. No signs or symptoms concerning for heart failure. She does have some poor oral intake and some nausea with this cough. Viral testing today was negative for flu and COVID. Her chest x- ray did not reveal a focal consolidation. She was resuscitated with some IV fluids, as well as steroids and antiemetics. She was given a breathing treatment and all of these things significantly in proved her symptoms. On reevaluation her breath sounds were clear and full bilaterally. At this time I do not feel that she needs antibiotic therapy. I have a suspicion that her symptoms are likely due to the flu even though her testing was negative. However she would be outside the window for treatment with Tamiflu. The patient will be discharged with cough medication to take as needed, steroids and bronchodilator treatment. Return precautions advised. If her symptoms or not improving would recommend repeat x-ray to ensure that she does not have a developed pneumonia. Quality:SDOH Health Related Social Needs: No Data to Display PFSH All Active Problems (Updated 01/08/25 @ 14:39 by All Lucia MD) Cough (Acute) URI (upper respiratory infection) (Acute) Vision disorder (Acute) Skin lesion (Acute) Thyroiditis (Acute) Mood disorder due to known physiological condition with depressive features (Acute) Sensorineural hearing loss, bilateral (Acute) Cervical spine degeneration (Acute) Significant worsening, per pain and PT eval (Dr. Gilbert is requesting MRI). NEG findings. Improved with [place]. Acute upper back pain (Acute) 2' increased heavy lifting, mopping @ work. Chronic issue with acute complaints 2' overuse ADHD (attention deficit hyperactivity disorder), combined type (Acute) Major depressive disorder, recurrent (Acute) Type 2 diabetes mellitus without complication, without long-term current use of insulin (Acute 11/28/17) Dx 2012 Metformin 1,000 BID, Lisinopril-HCTZ. A1C 5.7 11/28/17 EDGAR (obstructive sleep apnea) (Acute 11/2011) C-Pap Vandana Patino Hypothyroidism (Acute 10/01/14) 08/2019: 05/2020: 12/03/17 TSH 12.78 .. increasing to 150mcg, from 125mcg [vs. the 25mcg originally inputted in med-list]. Re-check @ 02/08.. Hyperlipidemia (Acute 11/02/17) Fibromyalgia (Acute 11/02/17) Essential hypertension (Acute 11/02/17) Degenerative disc disease, cervical (Acute 11/02/17) Anxiety (Acute 11/02/17) Medical History Other specified diabetes mellitus without complications (11/02/17) A1C 5.7 (Nov 2017), met w/ [facility], BP/Labwork acceptable. Low dose AceI, mod Metformin dose. Support less meds as BS level Hx shows leveling and BMI improves. Chronic post-traumatic stress disorder (PTSD) (11/02/17) Nightmares, residual fear that she will be followed (by man who may find her thru mutual friend here in area) Pain at surgical incision Scar tissue Skin abnormalities Chronic pain of left heel Pessary maintenance pt. states she does not have this any longer CARIN (stress urinary incontinence, female) Improved post annulectomy Mixed stress and urge urinary incontinence Some relief post pannulectomy! History of colon polyps Herpes zoster without complication (11/02/17) Herpes simplex (11/02/17) Staphylococcal infection of skin Post pancolectomy Abnormal smell Minimal post colectomy ..long Hx malodorous intertrigo, pannus infection. Intertrigo Presumed emelia COVID (10/17/21) Binge eating disorder Hx estrogen therapy Has greatly helped with depression .. D/C'd 04/2020 by [facility] 2' high BPs. Doing terribly with mood/depression, 05/26/20. Abdominal pannus Recovering post pancolectomy recommending pannilectomy ([facility]) Lower abdominal central weight (pooch), after weight loss of significant size/inches, but not this [place] of weight. Former tobacco use smoked 1 ppd quit and pt states she did not smoke for 30 yrs. Low Scan Chest ct not indicated. 08/20/19 cgc Iliotibial band syndrome of right side (02/12/19) > possible Dx, appreciate PT Evaluation Tubular adenoma of colon (07/23/13) Migraine headache (11/02/17) Insomnia (11/02/17) Depression (11/02/17) Long Hx with exacerbating event just over a year ago. Moving here from [place] is a helpful move. Quet used for just near a year. admission 01/19/16-01/26/16 suicidal ideation/depression Cervical radiculopathy (11/02/17) post C3-C7 surgery (frontal approach scar), plate/coil () Alcohol abuse (11/02/17) Surgical History S/P panniculectomy (12/29/22) History of surgery Neck surgery [place] Te[place] (01/29/18) Open Carpal Tunnel release (01/13/13) Bilateral Knee Surgery knee reconstruction Hysterectomy (10/21/10) Fibroids Elbow Surgery Colonoscopy w/ Bx (07/22/13) Polyps, therefore 5 yr FU Family History Mother Hyperthyroidism Mental health problem Daughter Mental health problem Alcohol use disorder Anxiety Depression Father Alcohol use disorder Cancer Prostate Diabetes Heart disease Brother Alcohol use disorder Son Asthma Social History Smoking/Tobacco Use Status: Former Tobacco Use Quit Date: 11/19/89 Quit status: quit date established Smoking risk assessment performed?: Yes Alcohol Intake: current Alcohol Intake frequency: holidays/special occasions only Drug use: Daily Substance use type: marijuana Details: 08/01/24: smoked marijuana Adopted: No Foster care: No Household members: none Housing: apartment Number of Children: 2 number of grandchildren: 3 Communication Needs: Blind Education Level: high school Do you need help understanding health information?: Rarely current occupation: works at [employer] Pets and animals: No Sexually active: No Do you think of yourself as: straight/heterosexual Current gender identity: female What is your relationship status?: How often do you talk on the phone with friends or family?: three or more times per week How often do you get together with friends or relatives?: twice per week Do you belong to any clubs or organized social groups?: yes Panel score (0-1 are the most socially isolated patients): 2 What type of physical activity do you participate in: walking Duration: 15-30 minutes/day Frequency: 3-4 times per week Cynthia/Judaism: Orthodoxy Seatbelt use: always Drive intox 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
== END 2025-01-08 15:03 | disposition home or self-care (01) ==
PROVIDERS: Emergency Provider Emergency Medicine; PCP Student in an Organized Health Care Education/Training Program
DX: J06.9 Acute upper respiratory infection, unspecified (principal); R05.9 Cough, unspecified; R06.2 Wheezing; R11.0 Nausea
CPT/HCPCS: 94640; 96361; 96374; 96375; 99284; 71046; 99283; J2405; J2919; J7620

== ENCOUNTER 2025-01-19 10:31 | Emergency (ER) | payer MEDICARE, MEDICAID, SELFPAY ==
[2025-01-19] VITALS (24 sets, daily range): BP systolic 114–148; BP diastolic 68–123; PULSE 92–108; RESP 18–20; TEMP 37; O2SAT 90–95
--- NOTE | 2025-01-19 10:45 | DI.RAD_ITS ---
Exam(s) XR CHEST 2V PA LATERAL EXAM: XR CHEST 2V PA LATERAL CLINICAL HISTORY: cough x 3 weeks. TECHNIQUE: 2D digital imaging was performed. COMPARISON: CR XR CHEST 2V PA LATERAL from 01/08/2025 FINDINGS: 2 views: Heart size is normal. The mediastinum is not widened. There is significant infiltrate in the right lower lobe now evident within the posterior basal segmen t the right lower lobe. Mild increased markings also noted at similar location left lower lobe. No obvious pleural effusions. Fusion plate in the cervical spine again noted. IMPRESSION: Right lower lobe infiltrate. Possibly smaller left lower lobe infiltrate. No obvious pleural effusi ons. DATA REPOSITORY: RADIATION DOSE DELIVERED:
--- NOTE | 2025-01-19 11:15 | ED.GENADUL_ITS ---
Discharge Plan Disposition Patient Disposition: Home Condition: Stable Discharge Details Clinical Impression: Pneumonia Primary Care Provider: Ally Dalal ED Provider: Elliot Rouse Home Meds and New Rx's Prescriptions: New amoxicillin-pot clavulanate 875-125 mg tablet 1 tab PO BID 5 Days Qty: 10 0RF azithromycin 250 mg tablet See Rx Instructions .ROUTE .COMPLEX Qty: 6 0RF Rx Instructions: For 250 mg dose pack: take 500 mg today (day 1), then 250 mg for 4 days (days 2-5) Continued loratadine [Claritin] 10 mg tablet 10 mg PO DAILY PRN [id number]-[id number] 3.5-10,000-1 mg/mL-unit/mL-% drops,suspension 4 drp otic (ear) Q8H 10 Days Qty: 10 1RF Rx Instructions: Trial for itching, inflamed ear canal albuterol sulfate [Ventolin HFA] 90 mcg/actuation HFA aerosol inhaler 2 puff Inhalation PRN PRN (Reason: shortness of breath or wheezing) Qty: 8.5 1RF (DME) Flexichamber Spacer See Rx Instructions .ROUTE .MEDSUPPLY Qty: 1 0RF Rx Instructions: As directed (DME) pen needle, diabetic 32 gauge x 1/5 needle See Rx Instructions .ROUTE .MEDSUPPLY Qty: 100 3RF Rx Instructions: For Victoza, for DM, E11.9 to maintain A1C under 7%; adm daily use albuterol sulfate 0.63 mg/3 mL solution for nebulization 0.63 mg IH QID PRN (Reason: shortness of breath or wheezing) Qty: 75 0RF Rx Instructions: Short term Rx for recent bronchitis... medical marijuana 1 dose PO DAILY (DME) blood sugar diagnostic Strip See Rx Instructions .ROUTE .MEDSUPPLY Qty: 100 3RF Rx Instructions: Accucheck E11.9 to test blood sugars bid due to uncontrolled dm, goal AIC <7 (DME) blood-glucose meter Kit See Rx Instructions .ROUTE .MEDSUPPLY Qty: 1 0RF Rx Instructions: Accucheck to check BS bid to maintain A1c <7.0 Dx:E11.9 (DME) lancets [Accu-Chek Softclix Lancets] Misc See Rx Instructions .Route Rx Instructions: Check blood sugar twice a day. E11.9 (DME) Abdominal Binder See Rx Instructions .Route .MEDSUPPLY Qty: 1 1RF Rx Instructions: Pls evaluate for abdominal binder for pain, skin care, posture urea 40 % cream 1 applic topical BID Qty: 28.35 1RF Rx Instructions: Trial for plaque-like lesions - PLEASE CALL PT WITH PRICING (ok to subst) hydrochlorothiazide 25 mg tablet 25 mg PO DAILY Qty: 90 3RF losartan 25 mg tablet See Rx Instructions .ROUTE .COMPLEX Qty: 90 3RF Dose Instruction: TAKE 1 TABLET BY MOUTH DAILY MAY CHANGE TO COMBINATION PILL Rx Instructions: TAKE 1 TABLET BY MOUTH DAILY MAY CHANGE TO COMBINATION PILL clonidine HCl 0.1 mg tablet 0.1 mg PO QHS Qty: 90 3RF duloxetine [Cymbalta] 60 mg capsule,delayed release(DR/EC) 60 mg PO DAILY MDD 90 Qty: 90 3RF Rx Instructions: 60+30 quetiapine 100 mg tablet 100 mg PO QHS Qty: 90 5RF Rx Instructions: Stay with 100mg duloxetine 30 mg capsule,delayed release(DR/EC) See Rx Instructions .ROUTE .COMPLEX Qty: 28 5RF Dose Instruction: TAKE 1 CAPSULE BY MOUTH DAILY WITH 60MG FOR DAILY TOTAL OF 90MG Rx Instructions: TAKE 1 CAPSULE BY MOUTH DAILY WITH 60MG FOR DAILY TOTAL OF 90MG levothyroxine [Synthroid] 100 mcg tablet See Rx Instructions .ROUTE .COMPLEX Qty: 28 5RF Dose Instruction: TAKE 1 TABLET BY MOUTH DAILY (DOSE DECREASED) Rx Instructions: TAKE 1 TABLET BY MOUTH DAILY (DOSE DECREASED) acyclovir 200 mg capsule See Rx Instructions .ROUTE .COMPLEX Qty: 84 0RF Dose Instruction: TAKE 1 CAPSULE BY MOUTH THREE TIMES A DAY Rx Instructions: TAKE 1 CAPSULE BY MOUTH THREE TIMES A DAY multivitamin with folic acid [Daily-Gely (with folic acid)] 400 mcg tablet See Rx Instructions .ROUTE .COMPLEX Qty: 28 0RF Dose Instruction: TAKE 1 TABLET BY MOUTH DAILY Rx Instructions: TAKE 1 TABLET BY MOUTH DAILY omeprazole 40 mg capsule,delayed release(DR/EC) See Rx Instructions .ROUTE .COMPLEX Qty: 28 0RF Dose Instruction: TAKE 1 CAPSULE BY MOUTH DAILY Rx Instructions: TAKE 1 CAPSULE BY MOUTH DAILY metformin 1,000 mg tablet See Rx Instructions .ROUTE .COMPLEX Qty: 56 0RF Dose Instruction: TAKE 1 TABLET BY MOUTH TWICE A DAY Rx Instructions: TAKE 1 TABLET BY MOUTH TWICE A DAY Ozempic 0.25 mg or 0.5 mg (2 mg/3 mL) pen injector 0.5 mg subcut QWEEK 28 Days Qty: 2.944 3RF Rx Instructions: Inject 0.5 mg subcutaneously once weekly promethazine 6.25 mg/5 mL syrup 12.5 mg PO Q6H PRN (Reason: cough) Qty: 120 0RF benzonatate 100 mg capsule 100 mg PO TID PRN (Reason: cough) Qty: 30 0RF ondansetron 4 mg tablet,disintegrating 4 mg PO Q6H PRN (Reason: nausea and vomiting) Qty: 30 0RF Discharge Instructions Instructions: Azithromycin (Systemic), Amoxicillin and Clavulanate, Pneumonia, Adult ED Additional Instructions: You were seen in the emergency department for your cough with mild shortness of breath for the past 3 weeks, your oxygen is normal here in the ER. We did provide you with Tylenol and ibuprofen and a breathing treatment. Please continue these at home with your inhaler and regular use of Tylenol and ibuprofen. Please use therapeutic dosing of Tylenol (acetamenophen) & Advil (ibuprofen) in an alternating fashion as follows: Take 1000mg of Tylenol every 6 hours without missing doses- that is 4 times per day. [place] in between the Tylenol dosings, take 400-600mg of Advil also on a 6 hour schedule, that is also 4 times per day. The daily maximum dosing of Tylenol is 4000mg, and the daily maximum dosing of Advil is 2400mg. This is safe to do for weeks. Please note that some common cold medications & prescription pain medications may contain acetamenophen and you need to read OTC drug labels and factor that in to maximum daily dosings. I have prescribed 2 different antibiotics for your likely right lower lobe pneumonia. Please take these as directed, you have an allergy to penicillins listed as headache, this is not likely to be an allergy and likely to be a side effect, please counteract this with Tylenol and ibuprofen. Please return for any profound respiratory distress, fevers not responding to regular doses of Tylenol and Motrin, intractable nausea or vomiting. Referrals: Ally Dalal DO [Primary Care Provider] - Discharge Data Discharge Date/Time-TO BE ENTERED AT DEPARTURE: 01/19/25 12:27 HPI General Date/Time Provider Initiated Documentation: 01/19/25 10:46 . HPI Narrative: 59 year-old female presents to ED today by POV/ambulating with a chief complaint of productive cough for the past 3 weeks, has tested negative for Flu. Quality described as generalized malaise, mild SOB, body aches, fevers, intermittent dizziness, no radiation to profound SOB, nausea/vomiting, inability to tolerate PO intake, abdominal pain, severe headache, syncope, chest pain. Severity is described as moderate. Palliating factors include taking OTC meds, but none today, was given an inhaler at last visit. Provoking factors include nothing specific. Patient not anticoagulated. Related Data Home Medications ?Medication ?Instructions ?Recorded ?Confirmed albuterol sulfate 0.63 mg/3 mL 0.63 mg (3 mL) inhalation QID PRN 08/23/18 01/19/25 solution for nebulization shortness of breath or wheezing #75 mL medical marijuana 1 dose PO DAILY 08/28/19 01/19/25 inhalational spacing device #1 ea 09/11/20 01/19/25 (Flexichamber spacer) loratadine 10 mg tablet (Claritin) 10 mg PO DAILY PRN 12/10/20 01/19/25 rjoqmcsv-lussooeiq-kbnkfhldk 3.5 4 drp otic (ear) Q8H 10 days #10 mL 01/20/22 01/19/25 mg-10,000 unit/mL-1 % ear drops,susp albuterol sulfate 90 mcg/actuation 2 puff inhalation PRN PRN 04/17/23 01/19/25 aerosol inhaler (Ventolin HFA) shortness of breath or wheezing #8.5 grams blood sugar diagnostic #100 ea 06/29/23 01/19/25 blood-glucose meter #1 ea 06/29/23 01/19/25 lancets (Accu-Chek Softclix 06/29/23 01/19/25 Lancets) Abdominal Binder #1 ea 07/08/23 01/19/25 pen needle, diabetic 32 gauge x #100 ea 08/20/23 01/19/25 1/5 urea 40 % topical cream 1 applic topical BID #28.35 grams 01/11/24 01/19/25 hydrochlorothiazide 25 mg tablet 25 mg PO DAILY #90 tabs 03/07/24 01/19/25 clonidine HCl 0.1 mg tablet 0.1 mg PO QHS #90 tabs 05/29/24 01/19/25 losartan 25 mg tablet See Rx Instructions .Route 05/29/24 01/19/25 .COMPLEX #90 tabs duloxetine 60 mg capsule,delayed 60 mg PO DAILY #90 caps 06/24/24 01/19/25 release (Cymbalta) quetiapine 100 mg tablet 100 mg PO QHS #90 tabs 07/27/24 01/19/25 Synthroid 100 mcg tablet See Rx Instructions .Route 11/14/24 01/19/25 (levothyroxine) .COMPLEX #28 tabs duloxetine 30 mg capsule,delayed See Rx Instructions .Route 11/14/24 01/19/25 release .COMPLEX #28 caps acyclovir 200 mg capsule See Rx Instructions .Route 01/05/25 01/19/25 .COMPLEX #84 caps metformin 1,000 mg tablet See Rx Instructions .Route 01/05/25 01/19/25 .COMPLEX #56 tabs multivitamin with folic acid 400 See Rx Instructions .Route 01/05/25 01/19/25 mcg tablet (Daily-Gely (with folic .COMPLEX #28 tabs acid)) omeprazole 40 mg capsule,delayed See Rx Instructions .Route 01/05/25 01/19/25 release .COMPLEX #28 caps benzonatate 100 mg capsule 100 mg PO TID PRN cough #30 caps 01/08/25 01/19/25 ondansetron 4 mg disintegrating 4 mg PO Q6H PRN nausea and 01/08/25 01/19/25 tablet vomiting #30 tabs promethazine 6.25 mg/5 mL oral 12.5 mg (10 mL) PO Q6H PRN cough 01/08/25 03/0 02/10 syrup #120 mL semaglutide 0.25 mg or 0.5 mg (2 0.5 mg (0.736 mL) subcut QWEEK 28 01/09/25 01/19/25 mg/3 mL) subcutaneous pen injector days #2.944 mL (Ozempic) amoxicillin 875 mg-potassium 1 tab PO BID 5 days #10 tabs 01/19/25 clavulanate 125 mg tablet azithromycin 250 mg tablet See Rx Instructions PO .COMPLEX #6 01/19/25 tabs Previous Rx's ?Medication ?Instructions ?Recorded albuterol sulfate 0.63 mg/3 mL 0.63 mg (3 mL) inhalation QID PRN 08/23/18 solution for nebulization shortness of breath or wheezing #75 mL inhalational spacing device #1 ea 09/11/20 (Flexichamber spacer) [id number]-njvwztccp-oogjjkiyu 3.5 4 drp otic (ear) Q8H 10 days #10 mL 01/20/22 mg-10,000 unit/mL-1 % ear drops,susp albuterol sulfate 90 mcg/actuation 2 puff inhalation PRN PRN 04/17/23 aerosol inhaler (Ventolin HFA) shortness of breath or wheezing #8.5 grams blood sugar diagnostic #100 ea 06/29/23 blood-glucose meter #1 ea 06/29/23 Abdominal Binder #1 ea 07/08/23 pen needle, diabetic 32 gauge x #100 ea 08/20/23 1/5 urea 40 % topical cream 1 applic topical BID #28.35 grams 01/11/24 hydrochlorothiazide 25 mg tablet 25 mg PO DAILY #90 tabs 03/07/24 clonidine HCl 0.1 mg tablet 0.1 mg PO QHS #90 tabs 05/29/24 losartan 25 mg tablet See Rx Instructions .Route 05/29/24 .COMPLEX #90 tabs duloxetine 60 mg capsule,delayed 60 mg PO DAILY #90 caps 06/24/24 release (Cymbalta) quetiapine 100 mg tablet 100 mg PO QHS #90 tabs 07/27/24 Synthroid 100 mcg tablet See Rx Instructions .Route 11/14/24 (levothyroxine) .COMPLEX #28 tabs duloxetine 30 mg capsule,delayed See Rx Instructions .Route 11/14/24 release .COMPLEX #28 caps acyclovir 200 mg capsule See Rx Instructions .Route 01/05/25 .COMPLEX #84 caps metformin 1,000 mg tablet See Rx Instructions .Route 01/05/25 .COMPLEX #56 tabs multivitamin with folic acid 400 See Rx Instructions .Route 01/05/25 mcg tablet (Daily-Gely (with folic .COMPLEX #28 tabs acid)) omeprazole 40 mg capsule,delayed See Rx Instructions .Route 01/05/25 release .COMPLEX #28 caps benzonatate 100 mg capsule 100 mg PO TID PRN cough #30 caps 01/08/25 ondansetron 4 mg disintegrating 4 mg PO Q6H PRN nausea and 01/08/25 tablet vomiting #30 tabs promethazine 6.25 mg/5 mL oral 12.5 mg (10 mL) PO Q6H PRN cough 01/08/25 syrup #120 mL semaglutide 0.25 mg or 0.5 mg (2 0.5 mg (0.736 mL) subcut QWEEK 28 01/09/25 mg/3 mL) subcutaneous pen injector days #2.944 mL (Ozempic) amoxicillin 875 mg-potassium 1 tab PO BID 5 days #10 tabs 01/19/25 clavulanate 125 mg tablet azithromycin 250 mg tablet See Rx Instructions PO .COMPLEX #6 01/19/25 tabs Allergies Allergy/AdvReac Type Severity Reaction Status Date / Time gabapentin AdvReac Severe suicidal Verified 01/19/25 10:53 ideation, diaphoresis bupropion AdvReac Intermediate ill feeling Verified 01/19/25 10:53 codeine AdvReac Psychosis Verified 01/19/25 10:53 erythromycin base AdvReac Nausea Verified 01/19/25 10:53 lisinopril AdvReac feeling Verified 01/19/25 10:53 conklin, sweaty and jittery. per note 05/19/20 Penicillins AdvReac Headache Verified 01/19/25 10:53 venlafaxine AdvReac [place] and Verified 01/19/25 10:53 [facility] General Stated Complaint: RespSymp MATT: 3 Review of Systems All systems reviewed & are unremarkable except as noted in HPI and below Exam Narrative Exam Narrative: GENERAL APPEARANCE: Well-nourished, non-toxic, awake and alert, atraumatic, no acute distress. SKIN: Warm, pink, dry, intact, without rashes/lesions/ulcerations. HEAD: Normocephalic, atraumatic, normal hair distribution for gender/age. EYES: Normal conjunctiva, no exudates on lids/lashes. ENT: Nares patent, no circumoral cyanosis, no facial swelling NECK: Supple, trachea midline, painless cervical ROM. LUNGS/CHEST: Lungs CTA bilaterally- mild rhonchi R base, non-labored respirations, normal A/P diameter, symmetrical expansion, no chest wall deformity HEART (CV/PV): Regular rate and rhythm without murmur, no peripheral edema, no JVD. ABDOMEN: Soft, non-distended, no guarding. MSK: Normal ROM, no swelling/deformity to bilateral UEs or LEs, moving all extremities without weakness, no cyanosis, spine midline without tenderness, normal curvature. NEURO: Mental Status AAOx4 - alert to person, place, time, events No facial droop, no forehead involvement. Motor: No focal weakness - strength 5/5 in bilateral UEs and LEs, proximal and distal, symmetric. Sensory: sensation intact to light touch globally. Gait normal: patient ambulated without ataxia into ED room. PSYCH: euthymic, cooperative, pleasant, appropriate speech Course Vital Signs Vital signs: Vital Signs Temperature 37.0 C 01/19/25 10:44 Pulse 96 H 01/19/25 10:44 Respiratory Rate 20 01/19/25 10:44 Blood Pressure 121/81 01/19/25 10:44 Pulse Oximetry 93 01/19/25 10:44 Temperature 37.0 C 01/19/25 10:53 Temperature Source Oral 01/19/25 10:53 Pulse 92 H 01/19/25 11:02 Respiratory Rate 20 01/19/25 10:53 Respiratory Effort Non-Labored 01/19/25 11:02 Respiratory Depth Normal 01/19/25 11:02 Blood Pressure 114/72 01/19/25 11:01 Blood Pressure Mean 85 01/19/25 11:01 Blood Pressure Position Sitting 01/19/25 10:53 Pulse Oximetry 93 01/19/25 11:02 Oxygen Delivery Method Room Air 01/19/25 10:53 Oxygen Flow Rate 0 01/19/25 10:53 Pain Level 9 01/19/25 10:53 Medical Decision Making This dictation utilizes [id number] dictation software and may contain unedited grammatical errors. 59 year-old female presents to ED today by POV/ambulating with a chief complaint of productive cough for the past 3 weeks, has tested negative for Flu. Quality described as generalized malaise, mild SOB, body aches, fevers, intermittent dizziness, no radiation to profound SOB, nausea/vomiting, inability to tolerate PO intake, abdominal pain, severe headache, syncope, chest pain. Severity is described as moderate. Palliating factors include taking OTC meds, but none today, was given an inhaler at last visit. Provoking factors include nothing specific. Patients' medical history: T2DM, fibromyalgia, hyperlipidemia, hypertension, anxiety. Family and social history: Uses marijuana daily, denies other smoking history. Pertinent exam findings / vital signs include lungs CTA with mild rhonchi diffuse at the right base, nonlabored respirations, nontoxic overall presentation afebrile, benign abdomen. Differential / pathologies of concern include pneumonia, bacterial bronchitis, not hypoxic respiratory failure. Diagnostic studies of: -COVID/flu/RSV PCR-negative -Chest x-ray-shows right lower lobe pneumonia. Interventions of: -Rx for Augmentin & Azithromycin. -DuoNeb given ED Course/Assessment/Plan: 59-year-old female presents with 3 weeks of productive cough, is negative for COVID and flu a chest x-ray shows a small right lower lobe infiltrate suspicious for pneumonia, I will treat empirically with dual antibiotic therapy to cover for community-acquired pneumonia, recommend therapeutic dosing Tylenol and ibuprofen as well as OTC cold medicines patient has inhaler at home. Strict return criteria for any further respiratory distress or other emergent concerns. Findings not consistent with hypoxic respiratory failure, sepsis. Disposition of Pneumonia. Patient verbalized understanding of the plan and return to ED criteria and engaged in shared decision making. Medical Records Medical records reviewed: Yes I reviewed the patient's medical records. Imaging Data Radiologic Study: Attestation: I personally reviewed and interpreted this imaging study as follows: Imaging: X-Ray Radiologist's impression: EXAM: XR CHEST 2V PA LATERAL CLINICAL HISTORY: cough x 3 weeks. TECHNIQUE: 2D digital imaging was performed. COMPARISON: CR XR CHEST 2V PA LATERAL from 01/08/2025 FINDINGS: 2 views: Heart size is normal. The mediastinum is not widened. There is significant infiltrate in the right lower lobe now evident within the posterior basal segment the right lower lobe. Mild increased markings also noted at similar location left lower lobe. No obvious pleural effusions. Fusion plate in the cervical spine again noted. IMPRESSION: Right lower lobe infiltrate. Possibly smaller left lower lobe infiltrate. No obvious pleural effusions. Lab Data Lab results reviewed: Yes I reviewed the patient's lab results. Labs: Laboratory Tests Range/Units 01/19/25 11:05 COVID-19 Source Nasopharynx SARS-CoV-2 (PCR) (Negative) Negative Influenza Type A (PCR) (Negative) Negative Influenza Type B (PCR) (Negative) Negative RSV (PCR) (Negative) Negative Quality:SDOH Health Related Social Needs: No Data to Display PFSH All Active Problems (Updated 01/19/25 @ 11:28 by PAULETTE Villarreal) Pneumonia (Acute) Cough (Acute) URI (upper respiratory infection) (Acute) Vision disorder (Acute) Skin lesion (Acute) Thyroiditis (Acute) Mood disorder due to known physiological condition with depressive features (Acute) Sensorineural hearing loss, bilateral (Acute) Cervical spine degeneration (Acute) Significant worsening, per pain and PT eval (Dr. Gilbert is requesting MRI). NEG findings. Improved with [place]. Acute upper back pain (Acute) 2' increased heavy lifting, mopping @ work. Chronic issue with acute complaints 2' overuse ADHD (attention deficit hyperactivity disorder), combined type (Acute) Major depressive disorder, recurrent (Acute) Type 2 diabetes mellitus without complication, without long-term current use of insulin (Acute 11/28/17) Dx 2012 Metformin 1,000 BID, Lisinopril-HCTZ. A1C 5.7 11/28/17 EDGAR (obstructive sleep apnea) (Acute 11/2011) C-Pap Vandana Patino Hypothyroidism (Acute 10/01/14) 08/2019: 05/2020: 12/03/17 TSH 12.78 .. increasing to 150mcg, from 125mcg [vs. the 25mcg originally inputted in med-list]. Re-check @ 02/08.. Hyperlipidemia (Acute 11/02/17) Fibromyalgia (Acute 11/02/17) Essential hypertension (Acute 11/02/17) Degenerative disc disease, cervical (Acute 11/02/17) Anxiety (Acute 11/02/17) Medical History Other specified diabetes mellitus without complications (11/02/17) A1C 5.7 (Nov 2017), met w/ [facility], BP/Labwork acceptable. Low dose AceI, mod Metformin dose. Support less meds as BS level Hx shows leveling and BMI improves. Chronic post-traumatic stress disorder (PTSD) (11/02/17) Nightmares, residual fear that she will be followed (by man who may find her thru mutual friend here in area) Pain at surgical incision Scar tissue Skin abnormalities Chronic pain of left heel Pessary maintenance pt. states she does not have this any longer CARIN (stress urinary incontinence, female) Improved post annulectomy Mixed stress and urge urinary incontinence Some relief post pannulectomy! History of colon polyps Herpes zoster without complication (11/02/17) Herpes simplex (11/02/17) Staphylococcal infection of skin Post pancolectomy Abnormal smell Minimal post colectomy ..long Hx malodorous intertrigo, pannus infection. Intertrigo Presumed emelia COVID (10/17/21) Binge eating disorder Hx estrogen therapy Has greatly helped with depression .. D/C'd 04/2020 by [facility] 2' high BPs. Doing terribly with mood/depression, 05/26/20. Abdominal pannus Recovering post pancolectomy recommending pannilectomy ([facility]) Lower abdominal central weight (pooch), after weight loss of significant size/inches, but not this mechoopda of weight. Former tobacco use smoked 1 ppd quit and pt states she did not smoke for 30 yrs. Low Scan Chest ct not indicated. 08/20/19 cgc Iliotibial band syndrome of right side (02/12/19) > possible Dx, appreciate PT Evaluation Tubular adenoma of colon (07/23/13) Migraine headache (11/02/17) Insomnia (11/02/17) Depression (11/02/17) Long Hx with exacerbating event just over a year ago. Moving here from [place] is a helpful move. Quet used for just near a year. admission 01/19/16-01/26/16 suicidal ideation/depression Cervical radiculopathy (11/02/17) post C3-C7 surgery (frontal approach scar), plate/coil () Alcohol abuse (11/02/17) Surgical History S/P panniculectomy (12/29/22) History of surgery Neck surgery Maxwell Teeth (01/29/18) Open Carpal Tunnel release (01/13/13) Bilateral Knee Surgery knee reconstruction Hysterectomy (10/21/10) Fibroids Elbow Surgery Colonoscopy w/ Bx (09/03/13) Polyps, therefore 5 yr FU Family History Mother Hyperthyroidism Mental health problem Daughter Mental health problem Alcohol use disorder Anxiety Depression Father Alcohol use disorder Cancer Prostate Diabetes Heart disease Brother Alcohol use disorder Son Asthma Social History Smoking/Tobacco Use Status: Former Tobacco Use Quit Date: 11/19/89 Quit status: quit date established Smoking risk assessment performed?: Yes Alcohol Intake: current Alcohol Intake frequency: holidays/special occasions only Drug use: Daily Substance use type: marijuana Details: Marijuana every night for sleep Adopted: No Foster care: No Household members: none Housing: apartment Number of Children: 2 number of grandchildren: 3 Communication Needs: Blind Education Level: high school Do you need help understanding health information?: Rarely current occupation: works at [employer] Pets and animals: No Sexually active: No Do you think of yourself as: straight/heterosexual Current gender identity: female What is your relationship status?: How often do you talk on the phone with friends or family?: three or more times per week How often do you get together with friends or relatives?: twice per week Do you belong to any clubs or organized social groups?: yes Panel score (0-1 are the most socially isolated patients): 2 What type of physical activity do you participate in: walking Duration: 15-30 minutes/day Frequency: 3-4 times per week Cynthia/Temple: Restorationist Seatbelt use: always Drive intox or ride w/intox wagon driver: No Working smoke detector in home: Yes Fire extinguisher in home: Yes Carbon monox detector in home: Yes Do you feel safe at home: Yes Do you feel safe in your relationship?: Yes Additional Social history: alone
[2025-01-19] MEDS: Albuterol/Ipratropium 3 ML UPD VIAL UPD (11:39)
[2025-01-19] MEDS: Ibuprofen 400 MG TAB PO (11:40)
[2025-01-19] MEDS: Acetaminophen 500 MG TAB 1000 MG PO (11:40)
[2025-01-19 11:58] LABS: COVID-19 PCR Negative (Negative); Influenza A PCR Negative (Negative); Influenza B PCR Negative (Negative); RSV PCR Negative (Negative)
[2025-01-19 12:01] LABS: Source Nasopharynx
== END 2025-01-19 12:27 | disposition home or self-care (01) ==
PROVIDERS: Emergency Provider Physician Assistant; PCP Student in an Organized Health Care Education/Training Program
DX: J18.9 Pneumonia, unspecified organism (principal); E11.9 Type 2 diabetes mellitus without complications; I10 Essential (primary) hypertension; E78.5 Hyperlipidemia, unspecified; Z79.84 Long term (current) use of oral hypoglycemic drugs; Z79.85 Long-term (current) use of injectable non-insulin antidiabetic drugs; Z87.891 Personal history of nicotine dependence
CPT/HCPCS: 87637; 94640; 99284; 71046; J7620

== ENCOUNTER 2025-02-05 01:37 | Outpatient (CLI) | payer MEDICARE, MEDICAID, SELFPAY ==
[2025-02-05 10:20] LABS: Abs Immature Grans 0.01 10^3/uL (0.0-0.06); Absolute Basophil Count 0.02 10^3/uL (0.0-0.2); Absolute Eosinophil Count 0.39 10^3/uL (0.0-0.7); Absolute Lymphocyte Count 2.18 10^3/uL (1.2-3.4); Absolute Monocyte Count 0.53 10^3/uL (0.1-0.8); Absolute Neutrophil Count 1.83 10^3/uL (1.2-6.7); Basophils % 0.4 %; Eosinophils % 7.9 %; HCT 42.6 % (36.0-46.0); HGB 14.4 g/dL (11.2-15.7); Immature Grans % 0.2 %; MCH 29.8 pg (27.0-33.0); MCHC 33.8 % (32.0-36.0); MCV 88 fL (80-95); MPV 8.7 fL (8.0-11.0); Monocytes % 10.7 %; Neutrophils % 36.8 %; Platelet Count 305 10^3/uL (130-400); RBC 4.83 10^6/uL (3.93-5.22); RDW 12.8 % (11.7-14.6); RDW-SD 41.5 fL; WBC 4.96 10^3/uL (4.4-10.8)
[2025-02-05 11:16] LABS: ALT 35 U/L (14-59); AST 26 U/L (15-37); Albumin 3.5 g/dL (3.4-5.0); Alkaline Phosphatase 77 U/L (46-116); Anion Gap 6.6 mmol/L (3-11); BUN 13 mg/dL (7-18); Bilirubin, Total 0.7 mg/dL (0.2-1.0); CO2 32.4 mmol/L (21.0-32.0); CREATININE 0.8 mg/dL (0.55-1.02); Calcium 9.6 mg/dL (8.5-10.1); Calculated LDL 161 mg/dL (<100); Chloride 105 mmol/L (98-107); Cholesterol 255 mg/dL (<200); Estimated GFR 83.78 (mL/min/1.73m2); Glucose 98 mg/dL (74-106); HDL Cholesterol 69 mg/dL (>or=50); Potassium 4.2 mmol/L (3.5-5.1); Sodium 144 mmol/L (136-145); TSH (W/Ref FT4) 0.53 uIU/mL (0.36-3.74); Total Protein 6.8 g/dL (6.4-8.2); Triglyceride 126 mg/dL (<150)
[2025-02-05 11:19] LABS: Hemoglobin A1C 5.9 % (<5.7)
== END 2025-02-05 01:38 | disposition home or self-care (01) ==
PROVIDERS: PCP Family Medicine; Visit Provider Nurse Practitioner
DX: E11.9 Type 2 diabetes mellitus without complications (principal); E03.9 Hypothyroidism, unspecified; E78.5 Hyperlipidemia, unspecified; I10 Essential (primary) hypertension
CPT/HCPCS: 36415; 80053; 80061; 83036; 84443; 85025

== ENCOUNTER 2025-02-26 01:13 | Outpatient (CLI) | payer MEDICARE, MEDICAID, SELFPAY ==
--- NOTE | 2025-02-26 08:00 | DI.MAMMO_ITS ---
Exam(s) MAMMO SCREENING EXAM: MAMMO SCREENING CLINICAL HISTORY: screening, Z12.39 TECHNIQUE: Mammograms were interpreted according to the usual protocol including computer analysis w [employer] CAD system, tomosynthesis and C-view imaging. COMPARISON: 2016 through 2021 FINDINGS: The breasts are composed of scattered fibroglandular densities, Breast Density category B. No suspicious masses or suspicious microcalcifications are seen. No skin thickening or abnormal axillary lymph nodes are seen. There has been no significant change from prior exams. IMPRESSION: BI-RADS Category 1, Negative mammogram Yearly screening mammography is recommended. Breast Density - Category B, scattered fibroglandular densities. A negative radiographic report should not delay biopsy if a dominant or clinically suspicious mass is present. Up to ten percent of cancers are not identified on mammography. A negative report may reinforce clinical impression. Adenosis and dense breasts may obscure an underlying neoplasm. False positive reports average 6 to 10%. Patient will receive a letter notifying them of these results.
== END 2025-02-26 01:33 ==
LOC: DI 01:13
PROVIDERS: PCP Student in an Organized Health Care Education/Training Program; Visit Provider Nurse Practitioner
DX: Z12.31 Encounter for screening mammogram for malignant neoplasm of breast (principal); R92.323 Mammographic fibroglandular density, bilateral breasts
CPT/HCPCS: 77063; 77067

== ENCOUNTER → 2025-03-19 13:25 | Outpatient (BNVA) | payer MEDICARE, MEDICAID, SELFPAY | PROVIDERS: PCP Family Medicine; Referring Provider Student in an Organized Health Care Education/Training Program; Visit Provider Physical Therapy Assistant | DX: Z12.11 Encounter for screening for malignant neoplasm of colon (principal) ==

== ENCOUNTER 2025-03-19 14:23 | Outpatient (CLI) | payer MEDICARE, MEDICAID, SELFPAY ==
[2025-03-19 14:23] LABS: ESR 1 mm/hr (0-30)
[2025-03-19 15:59] LABS: C-Reactive Protein < 0.50 mg/dL (<or=0.5)
[2025-03-20 11:16] LABS: Lyme Ab w Rflx to Lyme Confirm Negative (Negative)
[2025-03-22 21:34] LABS: Anaplasma phagocytophilum Negative (Negative); B. miyamotoi PCR Negative (Negative); Babesia divergens/MO-1 Negative (Negative); Babesia duncani Negative (Negative); Babesia microti Negative (Negative); Ehrlichia chaffeensis Negative (Negative); Ehrlichia ewingii/canis Negative (Negative); Ehrlichia muris eauclairensis Negative (Negative)
== END 2025-03-19 14:24 | disposition home or self-care (01) ==
LOC: LBO 14:26
PROVIDERS: PCP Family Medicine; Visit Provider Family Medicine
DX: M13.0 Polyarthritis, unspecified (principal)
CPT/HCPCS: 36415; 85652; 87798; 86140; 86618

== ENCOUNTER 2025-04-24 07:32 | Day surgery (SDC) | payer MEDICARE, MEDICAID, SELFPAY ==
--- NOTE | 2025-04-23 16:28 | W.PM.DSUDISC ---
Date of service: 04/24/25 Discharge Plan Disposition Patient Disposition: Home Condition: Good Discharge Details Reason For Visit: Screening colonoscopy Attending Provider: Felix Ramos Primary Care Provider: Bo Canales Home Meds and New Rx's Prescriptions: Continued loratadine [Claritin] 10 mg tablet 10 mg PO DAILY PRN [id number] 3.5-10,000-1 mg/mL-unit/mL-% drops,suspension 4 drp otic (ear) Q8H 10 Days Qty: 10 1RF Rx Instructions: Trial for itching, inflamed ear canal albuterol sulfate [Ventolin HFA] 90 mcg/actuation HFA aerosol inhaler 2 puff Inhalation PRN PRN (Reason: shortness of breath or wheezing) Qty: 8.5 1RF duloxetine 60 mg capsule,delayed release(DR/EC) 60 mg PO BID Qty: 180 1RF atorvastatin 20 mg tablet 20 mg PO QHS Qty: 90 3RF (DME) Flexichamber Spacer See Rx Instructions .ROUTE .MEDSUPPLY Qty: 1 0RF Rx Instructions: As directed (DME) pen needle, diabetic 32 gauge x 1/5 needle See Rx Instructions .ROUTE .MEDSUPPLY Qty: 100 3RF Rx Instructions: For Victoza, for DM, E11.9 to maintain A1C under 7%; adm daily use hydrochlorothiazide 25 mg tablet 25 mg PO DAILY Qty: 90 3RF losartan 25 mg tablet See Rx Instructions .ROUTE .COMPLEX Qty: 90 3RF Dose Instruction: TAKE 1 TABLET BY MOUTH DAILY MAY CHANGE TO COMBINATION PILL Rx Instructions: TAKE 1 TABLET BY MOUTH DAILY MAY CHANGE TO COMBINATION PILL albuterol sulfate 0.63 mg/3 mL solution for nebulization 0.63 mg IH QID PRN (Reason: shortness of breath or wheezing) Qty: 75 0RF Rx Instructions: Short term Rx for recent bronchitis... medical marijuana 1 dose PO DAILY (DME) blood sugar diagnostic Strip See Rx Instructions .ROUTE .MEDSUPPLY Qty: 100 3RF Rx Instructions: Accucheck E11.9 to test blood sugars bid due to uncontrolled dm, goal AIC <7 (DME) blood-glucose meter Kit See Rx Instructions .ROUTE .MEDSUPPLY Qty: 1 0RF Rx Instructions: Accucheck to check BS bid to maintain A1c <7.0 Dx:E11.9 (DME) lancets [Accu-Chek Softclix Lancets] Misc See Rx Instructions .Route Rx Instructions: Check blood sugar twice a day. E11.9 (DME) Abdominal Binder See Rx Instructions .Route .MEDSUPPLY Qty: 1 1RF Rx Instructions: Pls evaluate for abdominal binder for pain, skin care, posture urea 40 % cream 1 applic topical BID Qty: 28.35 1RF Rx Instructions: Trial for plaque-like lesions - PLEASE CALL PT WITH PRICING (ok to subst) clonidine HCl 0.1 mg tablet 0.1 mg PO QHS Qty: 90 3RF quetiapine 100 mg tablet 100 mg PO QHS Qty: 90 5RF Rx Instructions: Stay with 100mg levothyroxine [Synthroid] 100 mcg tablet See Rx Instructions .ROUTE .COMPLEX Qty: 28 5RF Dose Instruction: TAKE 1 TABLET BY MOUTH DAILY (DOSE DECREASED) Rx Instructions: TAKE 1 TABLET BY MOUTH DAILY (DOSE DECREASED) metformin 1,000 mg tablet See Rx Instructions .ROUTE .COMPLEX Qty: 56 12RF Dose Instruction: TAKE 1 TABLET BY MOUTH TWICE A DAY Rx Instructions: TAKE 1 TABLET BY MOUTH TWICE A DAY omeprazole 40 mg capsule,delayed release(DR/EC) See Rx Instructions .ROUTE .COMPLEX Qty: 28 12RF Dose Instruction: TAKE 1 CAPSULE BY MOUTH DAILY Rx Instructions: TAKE 1 CAPSULE BY MOUTH DAILY acyclovir 200 mg capsule See Rx Instructions .ROUTE .COMPLEX Qty: 84 0RF Dose Instruction: TAKE 1 CAPSULE BY MOUTH THREE TIMES A DAY Rx Instructions: TAKE 1 CAPSULE BY MOUTH THREE TIMES A DAY multivitamin with folic acid [Daily-Gely (with folic acid)] 400 mcg tablet See Rx Instructions .ROUTE .COMPLEX Qty: 28 0RF Dose Instruction: TAKE 1 TABLET BY MOUTH DAILY Rx Instructions: TAKE 1 TABLET BY MOUTH DAILY Ozempic 0.25 mg or 0.5 mg (2 mg/3 mL) pen injector 0.5 mg subcut QWEEK 28 Days Qty: 2.944 3RF Rx Instructions: Inject 0.5 mg subcutaneously once weekly promethazine 6.25 mg/5 mL syrup 12.5 mg PO Q6H PRN (Reason: cough) Qty: 120 0RF ondansetron 4 mg tablet,disintegrating 4 mg PO Q6H PRN (Reason: nausea and vomiting) Qty: 30 0RF Discontinued bisacodyl [Dulcolax (bisacodyl)] 5 mg tablet,delayed release (DR/EC) 5 mg PO ONCE Qty: 4 0RF Rx Instructions: Take per colonoscopy instructions provided by ordering providers office polyethylene glycol 3350 17 gram/dose powder 17 g PO ONCE Qty: 238 0RF Rx Instructions: Take per colonoscopy instructions provided by ordering providers office Discharge Instructions Instructions: Colon polyps Additional Instructions: Dolly, it was very nice meeting you, and hope you feel well after the procedure. I did find, and removed 2 polyps today. Both of these were quite small and neither of them appear particularly worrisome to the naked eye. I will send these both to the pathologist for the review and once I know the nature of these polyps, my office will be in touch with recommendations for future colonoscopies. If you need anything or have any questions, please do not hesitate to ask. 1. If tolerated, consume a soft, low fiber diet for 1-2 days. 2[address] Do not drive, drink alcohol, operate machinery, make critical decisions, or do activities that require coordination or balance for 24 hours. 3. Because air was put into your colon during the procedure, expelling air from your rectum (passing gas or farting) is normal. 4. You may not have a bowel movement for 1-3 days because of the colonoscopy prep. This is normal. 5. Go directly to the emergency room if you notice any of the following: Develop chills (warm to touch), or if you have a thermometer and your temperature is above 101 Difficulty breathing or difficultly swallowing Persistent vomiting Severe abdominal pain, other than gas cramps Severe chest pain Black, tarry stools Any bleeding ? exceeding one tablespoon 6. Call your physician if the site where your intravenous was started becomes red, swollen, painful, and warm to touch. 7. Your physician has reviewed your pre-procedure medications. Please continue to take those medications as previously ordered. You will be given specific information/education regarding any changes to your medications before leaving. Stand Alone Forms: Anesthesia Discharge Gaby Boykin (FRENCHU) Activity:: Activity as Tolerated Diet:: As Tolerated Discharge Orders Discharge Orders: Discharge Order (Routine); Ordered 04/23/25 Ordered By: Felix Ramos DS: Diagnosis Discharge Diagnosis (1) Encounter for screening colonoscopy: Status: Acute Asessment and Plan: Follow-up on polypectomy results
--- NOTE | 2025-04-23 16:31 | COLE_ITS ---
Date of service: 04/24/25 Time of Service: 10:28 Colonoscopy Report Date of procedure: 04/24/25 Pre-op diagnosis general: Screening colonoscopy Post-op diagnosis procedure note: other (Colon polyps) Procedure: Colonoscopy with polypectomy Surgeon: Felix Ramos Anesthesia Type: General:No Airway Estimated blood loss (mL): 5 Pathology: other (0.25 cm polyps at 100 cm from the anal verge x 2) Complications: None Disposition: same day Indications: Dolly is a 59-year-old woman who needs a screening colonoscopy Prep: Miralax/Dulcolax Procedure Start Time: 09:21 Procedure End Time: 10:15 Retraction Time: 12 Findings: 0.25 cm flat polyps x 2 at 100 cm Procedure Description: After the induction of anesthesia, and with the patient in left lateral decubitus position, I began by performing an external anorectal exam.? Perineum and skin were normal, as was the anal verge.? There was no evidence of external hemorrhoids.? Next, I performed a digital rectal exam.? I did not appreciate any abnormal findings.? Next, I advanced a colonoscope into the rectal vault.? I performed retroflexion.? This appeared normal.? Using insufflation, I then advanced the colonoscope beyond the rectal folds and into the sigmoid colon before advancing towards the cecum.? The proximal hepatic flexure and ascending colon were quite difficult to navigate. This required multiple repositioning and anterior abdominal pressure. Eventually, we were able to advance the camera all the way down into the cecum. The scope was noted to be in the cecum by identification of the ileocecal valve and appendiceal orifice.? I then began withdrawing the colonoscope using repeated irrigation as necessary for full evaluation of the colonic mucosa. ?Around 100 cm from the anal verge were 2 small polyps. These were both flat, just a few millimeters away from 1 another. Each of these polyps was about 0.25 cm. I removed each of these with cold forceps, and these were sent as a single specimen. Once the scope was withdrawn to the level of the rectum, great care was taken to examine portions of the rectal folds.? Finally, the scope was withdrawn and the patient was brought to the same-day surgery recovery unit as the anesthetic wore off. ?The findings and instructions were shared with the patient prior to discharge. [place] Bowel Prep [place] Bowel Prep Right Colon: 2 Left Colon: 3 Transverse Colon: 2 Total Score: 7
--- NOTE | 2025-04-24 07:54 | W.ANESPRE ---
General Info Date of Service Date Performed: 04/24/25 Height: 5 ft 5 in Weight: 85.2 kg Body Mass Index (BMI): 31.2 Surgical Procedure: Operation Date: 04/24/25 09:05 Proposed Procedure Side Surgeon andrew Ramos MD Meds Allergies and Home Medications Allergies Allergy/AdvReac Type Severity Reaction Status Date / Time gabapentin AdvReac Severe suicidal Verified 04/21/25 14:17 ideation, diaphoresis bupropion AdvReac Intermediate ill feeling Verified 04/21/25 14:17 codeine AdvReac Psychosis Verified 04/21/25 14:17 erythromycin base AdvReac Nausea Verified 04/21/25 14:17 lisinopril AdvReac feeling Verified 04/21/25 14:17 conklin, sweaty and jittery. per note 05/19/20 Penicillins AdvReac Headache Verified 04/21/25 14:17 venlafaxine AdvReac Conklin and Verified 04/21/25 14:17 sweating ([facility]) Home Medication ?Medication ?Instructions ?Recorded albuterol sulfate 0.63 mg/3 mL 0.63 mg (3 mL) inhalation QID PRN 08/23/18 solution for nebulization shortness of breath or wheezing #75 mL medical marijuana 1 dose PO DAILY 08/28/19 inhalational spacing device #1 ea 09/11/20 (Flexichamber spacer) loratadine 10 mg tablet (Claritin) 10 mg PO DAILY PRN 12/10/20 [id number] 3.5 4 drp otic (ear) Q8H 10 days #10 mL 01/20/22 mg-10,000 unit/mL-1 % ear drops,susp albuterol sulfate 90 mcg/actuation 2 puff inhalation PRN PRN 04/17/23 aerosol inhaler (Ventolin HFA) shortness of breath or wheezing #8.5 grams blood sugar diagnostic #100 ea 06/29/23 blood-glucose meter #1 ea 06/29/23 lancets (Accu-Chek Softclix 06/29/23 Lancets) Abdominal Binder #1 ea 07/08/23 pen needle, diabetic 32 gauge x #100 ea 08/20/23 1/5 urea 40 % topical cream 1 applic topical BID #28.35 grams 02/23/24 clonidine HCl 0.1 mg tablet 0.1 mg PO QHS #90 tabs 05/29/24 quetiapine 100 mg tablet 100 mg PO QHS #90 tabs 07/27/24 Synthroid 100 mcg tablet See Rx Instructions .Route 11/14/24 (levothyroxine) .COMPLEX #28 tabs ondansetron 4 mg disintegrating 4 mg PO Q6H PRN nausea and 01/08/25 tablet vomiting #30 tabs promethazine 6.25 mg/5 mL oral 12.5 mg (10 mL) PO Q6H PRN cough 01/08/25 syrup #120 mL hydrochlorothiazide 25 mg tablet 25 mg PO DAILY #90 tabs 01/27/25 losartan 25 mg tablet See Rx Instructions .Route 01/27/25 .COMPLEX #90 tabs metformin 1,000 mg tablet See Rx Instructions .Route 02/05/25 .COMPLEX #56 tabs omeprazole 40 mg capsule,delayed See Rx Instructions .Route 02/05/25 release .COMPLEX #28 caps atorvastatin 20 mg tablet 20 mg PO QHS #90 tabs 03/16/25 duloxetine 60 mg capsule,delayed 60 mg PO BID #180 caps 03/16/25 release acyclovir 200 mg capsule See Rx Instructions .Route 03/31/25 .COMPLEX #84 caps multivitamin with folic acid 400 See Rx Instructions .Route 03/31/25 mcg tablet (Daily-Gely (with folic .COMPLEX #28 tabs acid)) semaglutide 0.25 mg or 0.5 mg (2 0.5 mg (0.736 mL) subcut QWEEK 28 04/23/25 mg/3 mL) subcutaneous pen injector days #2.944 mL (Ozempic) Current Visit Medications: Current Medications Generic Name Dose Route Start Last Admin Trade Name Freq PRN Reason Stop Dose Admin Ringer's Solution 1,000 mls @ 80 mls/hr 04/24/25 06:00 IV 04/24/25 23:59 INFUSION [facility] IV Miscellaneous Supplies 1 each 04/24/25 06:00 Iv Access IV 04/24/25 23:59 DIRECTED [facility] Ondansetron HCl 4 mg 04/23/25 16:32 Ondansetron 4 Mg/2 Ml Vial IVP 05/23/25 16:31 Q4H PRN PRN Nausea / Vomiting Sodium Chloride 0 ml 04/24/25 06:00 Normal Saline Flush 10 Ml Syr IV 04/24/25 23:59 PRN PRN Sodium Chloride 0 ml 04/24/25 06:00 Normal Saline 10 Ml Vial IJ 04/24/25 23:59 DIRECTED PRN Sterile Water 0 ml 04/24/25 06:00 Water,Injection,Sterile 10 Ml Vial IJ 04/24/25 23:59 DIRECTED PRN PFSH Active Problems Active Problems: Problem Status Onset Code Encounter for screening colonoscopy Acute Z12.11 Polyarthritis Acute M13.0 Posterior subcapsular age-related cataract, right eye Resolved H25.041 Nuclear age-related cataract, right eye Resolved H25.11 Posterior subcapsular age-related cataract of left eye Resolved H25.042 Nuclear age-related cataract, left eye Resolved H25.12 Vision disorder Acute H53.9 Skin lesion Acute L98.9 Thyroiditis Acute E06.9 Mood disorder due to known physiological condition with depressive features Acute F06.31 Sensorineural hearing loss, bilateral Acute H90.3 Cervical spine degeneration Acute M47.812 Acute upper back pain Acute M54.9 ADHD (attention deficit hyperactivity disorder), combined type Acute F90.2 Major depressive disorder, recurrent Acute F33.9 Type 2 diabetes mellitus without complication, without long-term current use of insulin Acute 11/28/17 E11.9 EDGAR (obstructive sleep apnea) Acute 11/2011 G47.33 Hypothyroidism Acute 10/01/14 E03.9 Hyperlipidemia Acute 11/02/17 E78.5 Fibromyalgia Acute 11/02/17 M79.7 Essential hypertension Acute 11/02/17 I10 Degenerative disc disease, cervical Acute 11/02/17 M50.30 Anxiety Acute 11/02/17 F41.9 Medical History Medical History Other specified diabetes mellitus without complications (11/02/17) A1C 5.7 (Nov 2017), met w/ [facility], BP/Labwork acceptable. Low dose AceI, mod Metformin dose. Support less meds as BS level Hx shows leveling and BMI improves. Chronic post-traumatic stress disorder (PTSD) (11/02/17) Nightmares, residual fear that she will be followed (by man who may find her thru mutual friend here in area) Pain at surgical incision Scar tissue Skin abnormalities Chronic pain of left heel Pessary maintenance pt. states she does not have this any longer CARIN (stress urinary incontinence, female) Improved post annulectomy Mixed stress and urge urinary incontinence Some relief post pannulectomy! History of colon polyps Herpes zoster without complication (11/02/17) Herpes simplex (11/02/17) Staphylococcal infection of skin Post pancolectomy Abnormal smell Minimal post colectomy ..long Hx malodorous intertrigo, pannus infection. Intertrigo Presumed emelia COVID (10/17/21) Binge eating disorder Hx estrogen therapy Has greatly helped with depression .. D/C'd 04/2020 by [facility] 2' high BPs. Doing terribly with mood/depression, 05/26/20. Abdominal pannus Recovering post pancolectomy recommending pannilectomy ([facility]) Lower abdominal central weight (pooch), after weight loss of significant size/inches, but not this [place] of weight. Former tobacco use smoked 1 ppd quit and pt states she did not smoke for 30 yrs. Low Scan Chest ct not indicated. 08/20/19 cgc Iliotibial band syndrome of right side (02/12/19) > possible Dx, appreciate PT Evaluation Tubular adenoma of colon (07/23/13) Migraine headache (11/02/17) Insomnia (11/02/17) Depression (11/02/17) Long Hx with exacerbating event just over a year ago. Moving here from [place] is a helpful move. Quet used for just near a year. admission 01/19/16-01/26/16 suicidal ideation/depression Cervical radiculopathy (11/02/17) post C3-C7 surgery (frontal approach scar), plate/coil ([facility]) Alcohol abuse (11/02/17) Surgical History Surgical History S/P panniculectomy (12/29/22) History of surgery Neck surgery [place] Teeth (01/29/18) Open Carpal Tunnel release (01/13/13) Bilateral Knee Surgery knee reconstruction Hysterectomy (10/21/10) Fibroids Elbow Surgery Colonoscopy w/ Bx (07/22/13) Polyps, therefore 5 yr FU Tobacco Smoking/Tobacco Use Status: Former Tobacco Use Passive smoking exposure: Yes Alcohol Alcohol Intake: former Substance Use Substance use: Daily Substance use type: marijuana Details: Marijuana every night for sleep Vital Signs and Lab Results Vital Signs Most Recent Vital Signs in EMR: Temp Pulse Resp BP Pulse Ox 36.5 C 76 16 118/80 97 04/24/25 08:15 04/24/25 08:15 04/24/25 08:15 04/24/25 08:15 04/24/25 08:15 Lab Results Blood Type / Crossmatch: No Data to Display Complete Blood Count: No Data to Display Complete Metabolic Panel: No Data to Display Liver Function Panel: No Data to Display Coagulation Panel: No Data to Display Cardiac Panel: No Data to Display Arterial Blood Gas: No Data to Display Venous Blood Gas: No Data to Display Pancreas Panel: No Data to Display Thyroid Panel: No Data to Display Infectious Disease: No Data to Display Blood Cultures: No Data to Display Toxicology Panel: No Data to Display Imaging and Studies Imaging and Studies Study information below may be from another EMR and interpreted by another provider. Please see original notes in EMR for more complete details. EKG Summary: EKG PATIENT NAME: Dolly Xie UNIT #: [id number] ORDERING PROVIDER: Ally Dalal DO PRIMARY CARE PROVIDER: ALLY DALAL DO DATE/TIME OF SERVICE: 07/18/22 1151 : 1965 PERFORMING LOCATION: [facility] APPROVED REPORT Exam: Resting ECG Reason for Exam: Medication monitoring Patient Location: O HR:73 bpm ECG Measurements Heart Rate 73 AXIS CO 149 P 45 QRSd 94 QRS -2 QT 417 T46 QTc 460 Conclusion Sinus rhythm...normal P axis, V-rate 50- 99 Normal Electrocardiogram <Electronically signed by ELISABETH GRACIA MD in [facility]> E-Sign Date: 07/18/22 E-Sign Time: 1210 Anesthesia Assessment and Plan Anesthesia History Personal History: PONV Family History: No Family History of Anesthesia Complications Exercise Tolerance Exercise Tolerance: Metabolic Equivalents>4 Pertinent Negatives Pertinent Negatives: No Symptoms of GERD Cardiac & Pulmonary Exam Cardiac Exam: Normal S1/S2 Heart Sounds Pulmonary Exam: Clear Bilateral Breath Sounds Implantable Cardiac Device Does patient have a Pacemaker or an ICD?: No Airway Exam Known Difficult Airway: No Mallampati Class: 2 Mouth Opening: Normal (> 3cm) Thyromental Distance: Greater than 3 cm Neck Range of Motion: Full ROM Neck Circumference: Normal Teeth Condition: Normal Dentition ASA Classification ASA Score: ASA 2 Emergency Case?: No NPO Status NPO Status: NPO Clears >2 hours, Solids >8 hours Anesthesia Plan Resuscitation Status: Full Code Anesthesia Technique: MAC Anesthesia Airway Planned: Natural Airway Monitors Used: Standard Monitors Preoperative Comments:: 59 yo for colonoscopy. previous cataract with no MKO. no issues
[2025-04-24 08:15] VITALS: BP 118/80; PULSE 76; RESP 16; TEMP 36.5; O2SAT 97
[2025-04-24] MEDS: Lactated Ringers 1,000 ML 80 ML IV (08:18)
[2025-04-24 08:41] VITALS: BMI 31.2
--- NOTE | 2025-04-24 09:05 | HPE_ITS ---
Assessment and Plan Assessment and plan (1) Encounter for screening colonoscopy: Status: Acute Assessment and plan: we reviewed the plan for a screening colonoscopy today and the role of it in routine health maintenance. I explained the risks and the benefits and she is able to provide informed consent. We can proceed with colonoscopy as planned. History of Present Illness History of Present Illness Chief Complaint: Screening colonoscopy Narrative: 59 y/o female with history of depression, Type 2 DM, ADHD, EDGAR, hypothyroidism, HLD and fibromyalgia presents for colonoscopy screening pre-op. Her last screening was in 2019 which was normal. She denies a family history of colon cancer. She denies any changes in bowel habits including bloody or black tarry stools, abdominal pain, diarrhea or constipation. She denies constitutional symptoms. She denies chest pain, palpitations, dyspnea or dyspnea with exertion. She denies prior history or family history of adverse reactions or complications with anesthesia. The patient denies any history of stroke, [place], seizures, bleeding or clotting disorders. She has metal implanted in her cervical spine and left knee. PFSH All Active Problems Encounter for screening colonoscopy (Acute) Polyarthritis (Acute) Vision disorder (Acute) Skin lesion (Acute) Thyroiditis (Acute) Mood disorder due to known physiological condition with depressive features (Acute) Sensorineural hearing loss, bilateral (Acute) Cervical spine degeneration (Acute) Significant worsening, per pain and PT eval (Dr. Gilbert is requesting MRI). NEG findings. Improved with Vladimir. Acute upper back pain (Acute) 2' increased heavy lifting, mopping @ work. Chronic issue with acute complaints 2' overuse ADHD (attention deficit hyperactivity disorder), combined type (Acute) Major depressive disorder, recurrent (Acute) Type 2 diabetes mellitus without complication, without long-term current use of insulin (Acute 11/28/17) Dx 2012 Metformin 1,000 BID, Lisinopril-HCTZ. A1C 5.7 11/28/17 EDGAR (obstructive sleep apnea) (Acute 11/2011) C-Pap Vandana Patino Hypothyroidism (Acute 10/01/14) 08/2019: 05/2020: 12/03/17 TSH 12.78 .. increasing to 150mcg, from 125mcg [vs. the 25mcg originally inputted in med-list]. Re-check @ 02/08.. Hyperlipidemia (Acute 11/02/17) Fibromyalgia (Acute 11/02/17) Essential hypertension (Acute 11/02/17) Degenerative disc disease, cervical (Acute 11/02/17) Anxiety (Acute 11/02/17) Medical History Other specified diabetes mellitus without complications (11/02/17) A1C 5.7 (Nov 2017), met w/ [facility], BP/Labwork acceptable. Low dose AceI, mod Metformin dose. Support less meds as BS level Hx shows leveling and BMI improves. Chronic post-traumatic stress disorder (PTSD) (11/02/17) Nightmares, residual fear that she will be followed (by man who may find her thru mutual friend here in area) Pain at surgical incision Scar tissue Skin abnormalities Chronic pain of left heel Pessary maintenance pt. states she does not have this any longer CARIN (stress urinary incontinence, female) Improved post annulectomy Mixed stress and urge urinary incontinence Some relief post pannulectomy! History of colon polyps Herpes zoster without complication (11/02/17) Herpes simplex (11/02/17) Staphylococcal infection of skin Post pancolectomy Abnormal smell Minimal post colectomy ..long Hx malodorous intertrigo, pannus infection. Intertrigo Presumed emelia COVID (10/17/21) Binge eating disorder Hx estrogen therapy Has greatly helped with depression .. D/C'd 04/2020 by [facility] 2' high BPs. Doing terribly with mood/depression, 05/26/20. Abdominal pannus Recovering post pancolectomy recommending pannilectomy ([facility]) Lower abdominal central weight (pooch), after weight loss of significant size/inches, but not this [place] of weight. Former tobacco use smoked 1 ppd quit and pt states she did not smoke for 30 yrs. Low Scan Chest ct not indicated. 08/20/19 cgc Iliotibial band syndrome of right side (02/12/19) > possible Dx, appreciate PT Evaluation Tubular adenoma of colon (07/23/13) Migraine headache (11/02/17) Insomnia (11/02/17) Depression (11/02/17) Long Hx with exacerbating event just over a year ago. Moving here from [place] is a helpful move. Quet used for just near a year. admission 01/19/16-01/26/16 suicidal ideation/depression Cervical radiculopathy (11/02/17) post C3-C7 surgery (frontal approach scar), plate/coil () Alcohol abuse (11/02/17) Surgical History S/P panniculectomy (12/29/22) History of surgery Neck surgery [place] Teeth (01/29/18) Open Carpal Tunnel release (01/13/13) Bilateral Knee Surgery knee reconstruction Hysterectomy (10/21/10) Fibroids Elbow Surgery Colonoscopy w/ Bx (07/22/13) Polyps, therefore 5 yr FU Family History Mother Hyperthyroidism Mental health problem Daughter Mental health problem Alcohol use disorder Anxiety Depression Father Alcohol use disorder Cancer Prostate Diabetes Heart disease Brother Alcohol use disorder Son Asthma Social History (Updated 03/27/25 @ 09:41 by PAULETTE Erickson) Smoking/Tobacco Use Status: Former Tobacco Use Quit Date: 11/19/89 Quit status: quit date established Smoking risk assessment performed?: Yes Alcohol Intake: current Alcohol Intake frequency: holidays/special occasions only Drug use: Daily Substance use type: marijuana Details: Marijuana every night for sleep; last use last HS: 04/23/25 Adopted: No Foster care: No Household members: none Housing: apartment Number of Children: 2 number of grandchildren: 3 Communication Needs: Blind Education Level: high school Do you need help understanding health information?: Rarely current occupation: works at [employer] Pets and animals: No Sexually active: No Do you think of yourself as: straight/heterosexual Current gender identity: female What is your relationship status?: How often do you talk on the phone with friends or family?: three or more times per week How often do you get together with friends or relatives?: twice per week Do you belong to any clubs or organized social groups?: yes Panel score (0-1 are the most socially isolated patients): 2 What type of physical activity do you participate in: walking Duration: 15-30 minutes/day Frequency: 3-4 times per week Cynthia/Nondenominational: Taoist Seatbelt use: always Drive intox or ride w/intox class c truck driver: No Working smoke detector in home: Yes Fire extinguisher in home: Yes Carbon monox detector in home: Yes Do you feel safe at home: Yes Do you feel safe in your relationship?: Yes Additional Social history: lives alone Meds Allergies and Home Medications Allergies Allergy/AdvReac Type Severity Reaction Status Date / Time gabapentin AdvReac Severe suicidal Verified 04/21/25 14:17 ideation, diaphoresis bupropion AdvReac Intermediate ill feeling Verified 04/21/25 14:17 codeine AdvReac Psychosis Verified 04/21/25 14:17 erythromycin base AdvReac Nausea Verified 04/21/25 14:17 lisinopril AdvReac feeling Verified 04/21/25 14:17 conklin, sweaty and jittery. per note 05/19/20 Penicillins AdvReac Headache Verified 04/21/25 14:17 venlafaxine AdvReac Conklin and Verified 04/21/25 14:17 sweating ([facility]) Home Medications ?Medication ?Instructions ?Recorded ?Confirmed ?Type albuterol sulfate 0.63 mg/3 mL 0.63 mg (3 mL) inhalation QID PRN 08/23/18 04/24/25 Rx solution for nebulization shortness of breath or wheezing #75 mL medical marijuana 1 dose PO DAILY 08/28/19 04/24/25 History inhalational spacing device #1 ea 09/11/20 03/27/25 Rx (Flexichamber spacer) loratadine 10 mg tablet (Claritin) 10 mg PO DAILY PRN 12/10/20 04/24/25 History bzigytck-stapjhmiv-zpmdvjrhk 3.5 4 drp otic (ear) Q8H 10 days #10 mL 01/20/22 04/24/25 Rx mg-10,000 unit/mL-1 % ear drops,susp albuterol sulfate 90 mcg/actuation 2 puff inhalation PRN PRN 04/17/23 04/24/25 Rx aerosol inhaler (Ventolin HFA) shortness of breath or wheezing #8.5 grams blood sugar diagnostic #100 ea 06/29/23 03/27/25 Rx blood-glucose meter #1 ea 06/29/23 03/27/25 Rx lancets (Accu-Chek Softclix 06/29/23 03/27/25 History Lancets) Abdominal Binder #1 ea 07/08/23 03/27/25 Rx pen needle, diabetic 32 gauge x #100 ea 08/20/23 03/27/25 Rx 1/5 urea 40 % topical cream 1 applic topical BID #28.35 grams 01/11/24 04/24/25 Rx clonidine HCl 0.1 mg tablet 0.1 mg PO QHS #90 tabs 05/29/24 04/24/25 Rx quetiapine 100 mg tablet 100 mg PO QHS #90 tabs 07/27/24 04/24/25 Rx Synthroid 100 mcg tablet See Rx Instructions .Route 11/14/24 04/24/25 Rx (levothyroxine) .COMPLEX #28 tabs ondansetron 4 mg disintegrating 4 mg PO Q6H PRN nausea and 01/08/25 04/24/25 Rx tablet vomiting #30 tabs promethazine 6.25 mg/5 mL oral 12.5 mg (10 mL) PO Q6H PRN cough 01/08/25 04/24/25 Rx syrup #120 mL hydrochlorothiazide 25 mg tablet 25 mg PO DAILY #90 tabs 01/27/25 04/24/25 Rx losartan 25 mg tablet See Rx Instructions .Route 01/27/25 04/24/25 Rx .COMPLEX #90 tabs metformin 1,000 mg tablet See Rx Instructions .Route 02/05/25 04/24/25 Rx .COMPLEX #56 tabs omeprazole 40 mg capsule,delayed See Rx Instructions .Route 02/05/25 04/24/25 Rx release .COMPLEX #28 caps atorvastatin 20 mg tablet 20 mg PO QHS #90 tabs 03/16/25 04/24/25 Rx duloxetine 60 mg capsule,delayed 60 mg PO BID #180 caps 03/16/25 04/24/25 Rx release acyclovir 200 mg capsule See Rx Instructions .Route 03/31/25 04/24/25 Rx .COMPLEX #84 caps multivitamin with folic acid 400 See Rx Instructions .Route 03/31/25 04/24/25 Rx mcg tablet (Daily-Gely (with folic .COMPLEX #28 tabs acid)) semaglutide 0.25 mg or 0.5 mg (2 0.5 mg (0.736 mL) subcut QWEEK 28 06/05/25 06/06/25 Rx mg/3 mL) subcutaneous pen injector days #2.944 mL (Ozempic) Exam Const General: cooperative, healthy appearing and not in acute distress Neck Neck: normal visual inspection, no lymphadenopathy and supple Resp Effort & Inspection: normal respiratory effort Auscultation: clear to auscultation bilaterally Cardio Jugular venous pressure: no JVD Rate: regular rate Rhythm: regular rhythm Heart Sounds: S1 normal and S2 normal GI Inspection: normal to inspection Palpation: soft, no guarding, no hernias and nontender Percussion: normal to percussion Auscultation: normal bowel sounds Neuro General: patient alert, patient awake and patient oriented x3 Psych Appearance: grossly normal Results Last Vital Signs Temp 97.7 F 04/24/25 08:15 Pulse 76 04/24/25 08:15 Resp 16 04/24/25 08:15 BP 118/80 04/24/25 08:15 Pulse Ox 97 04/24/25 08:15
--- NOTE | 2025-04-24 10:07 | BOWEL_PTH ---
PATIENT: Dolly Xie LOC: [facility] U#:[id number] AGE/SX: 59/F ROOM: RE04/24/[address]: Felix Ramos MD : [id number] BED: DIS: 04/24/2025 SPEC #: [id number] RECD: 04/24/25 12:54 STATUS: MIKE REQ #: [id number] FILOMENA: 04/24/25 10:[address]: Felix Ramos DEPT: Surgical Specimen RECD BY: Tabitha Gomez ENTERED: 04/24/25 12:56 SP TYPE: Bowel OTHR DR: Bo Canales DO Tissues: 1 - BIOPSY BOWEL Procedures: GROSS AND MICRO LEVEL 4 Comments: [id number]
[2025-04-24 10:22] VITALS: BP 116/72; PULSE 78; RESP 16; TEMP 36; O2SAT 98
[2025-04-24 10:46] VITALS: BP 105/65; PULSE 64; RESP 14; TEMP 36.2; O2SAT 99
--- NOTE | 2025-04-24 11:03 | W.ANESPOSTOP ---
Postoperative Evaluation Date, Time and Location Date Performed: 04/24/25 Time Performed: 10:49 Patient Location: Day Surgery Unit Vital Signs Most Recent Imported Vital Signs: Most Recent Vital Signs Temp Pulse Resp BP Pulse Ox 36.2 C L 64 14 105/65 99 04/24/25 10:46 04/24/25 10:46 04/24/25 10:46 04/24/25 10:46 04/24/25 10:46 Pain Score Most Recent Pain Score: Most Recent Pain Score Pain Level 0 04/24/25 10:46 Assessment Mental Status: Awake (Alert & Oriented to Patient Baseline) Airway and Respiratory Function: Patent airway with normal (patient baseline) respiratory exam Cardiovascular Function: Hemodynamically Stable Hydration Status: Adequately Hydrated Nausea & Vomiting: No Nausea or Vomiting Pain: Pt. Denies Any Pain Peripheral Nerve Block: Patient did not receive a nerve block
== END 2025-04-24 10:59 | disposition home or self-care (01) ==
LOC: SUR 07:32
PROVIDERS: PCP Family Medicine; Visit Provider Surgery
PROC: 0DJD8ZZ Inspection of Lower Intestinal Tract, Via Natural or Artificial Opening Endoscopic (ICD-10-PCS; CPT 45378; principal; 2025-04-24 09:00)
DX: Z12.11 Encounter for screening for malignant neoplasm of colon (principal); D12.3 Benign neoplasm of transverse colon
CPT/HCPCS: 45380; 88305; J2405; J2704

== ENCOUNTER 2025-09-25 02:55 | Outpatient (CLI) | payer MEDICARE, MEDICAID, SELFPAY ==
[2025-09-25 11:03] LABS: Cholesterol 151 mg/dL (<200); HDL Cholesterol 75 mg/dL (>or=50); TSH (W/Ref FT4) 0.07 uIU/mL (0.36-3.74)
== END 2025-09-25 02:56 | disposition home or self-care (01) ==
LOC: LBO 02:55
PROVIDERS: PCP Nurse Practitioner Family; Visit Provider Nurse Practitioner Family
DX: E03.9 Hypothyroidism, unspecified (principal); E78.5 Hyperlipidemia, unspecified; I10 Essential (primary) hypertension
CPT/HCPCS: 36415; 80061; 73630; 82565; 84439; 84443

== ENCOUNTER → 2025-09-25 03:27 | Outpatient (CLI) | payer MEDICARE, MEDICAID, SELFPAY ==
--- NOTE | 2025-09-25 06:45 | DI.RAD_ITS ---
Exam(s) XR FOOT RT COMPLETE EXAM: XR FOOT RT COMPLETE CLINICAL HISTORY: ? bunion,rt foot pain,m79.671. TECHNIQUE: 2D digital imaging was performed of the right foot. Three images were obtained. AP, oblique and lateral views were obtained. COMPARISON: CR RIGHT ANKLE COMPLETE from 09/02/2017 FINDINGS: BONES: No acute fracture is present. No bony destructive lesion is seen. There is an enthesophyte at the posterior calcaneus. There is a plantar calcaneal spur. JOINTS: No dislocation present. There is a small spur at the dorsal aspect of the head of the 1st metatarsal. The 1st MTP angle is less than 15 degrees. Mild degenerative changes seen at the 1st MTP joint. SOFT TISSUE: Normal. IMPRESSION: 1. Calcaneal spurs. 2. Mild degenerative changes seen at the 1st MTP joint. DATA REPOSITORY: RADIATION DOSE DELIVERED:
== END ==
LOC: DI 03:28
PROVIDERS: PCP Nurse Practitioner Family; Visit Provider Nurse Practitioner Family
DX: M79.671 Pain in right foot (principal); M77.31 Calcaneal spur, right foot; M19.071 Primary osteoarthritis, right ankle and foot
CPT/HCPCS: 73630

== ENCOUNTER → 2025-10-02 03:08 | Outpatient (CLI) | payer MEDICARE, MEDICAID, SELFPAY ==
[2025-10-02] MEDS: Barium Sulfate 2% W/V-Creamy Vanilla Smoothie 450 ML BTL PO (10:47)
[2025-10-02] MEDS: Barium Sulfate 2% W/V-Berry Smoothie 450 ML BTL PO (10:48)
[2025-10-02] MEDS: Normal Saline Flush 10 ML SYR IVP (12:50)
[2025-10-02] MEDS: Normal Saline - Diluent 50 ML VIAL IJ (12:50)
[2025-10-02] MEDS: Omnipaque 350 MG/ML 100 ML BTL IJ (12:51)
--- NOTE | 2025-10-02 13:00 | DI.CT_ITS ---
Exam(s) CT ABDOMEN PELVIS W EXAM: CT ABDOMEN PELVIS W CLINICAL HISTORY: ABD PAIN,R10.85 MULTIPLE SITES. TECHNIQUE: Imaging Protocol: Axial computed tomography images with coronal and sagittal reformatted images were created and reviewed CONTRAST MATERIAL: Intravenous: Omnipaque 350 Contrast volume:100 ml Oral: yes COMPARISON: No exams were available for comparison FINDINGS: ABDOMEN and PELVIS: Lung Bases: No acute findings. Liver: Normal density. No suspicious mass. Gallbladder and biliary tract: No radiodense calculus. No wall thickening or pericholecystic fluid. No biliary dilation. Pancreas: Normal density. No abnormal calcifications or inflammatory process. No evidence of mass. Spleen: Normal. Kidneys: Normal size, contour and axis. No radiodense stones. No obstructive uropathy. No suspicious masses seen. Adrenal glands: No masses seen. Vasculature: Abdominal aorta non-dilated. Soft tissues: Postsurgical scarring in the lower anterior midline abdominal wall. Multiple surgical clips noted in the region of the right rectus abdominus muscle. Bladder: Nearly empty. No gross wall thickening or calcification. Bowel: No obstruction. No bowel wall thickening. Appendix normal.Normal quantity of stool. Peritoneal cavity: No ascites. No focal collection. No mesenteric inflammatory response. No free air. Bones: Degenerative changes and mild scoliosis. Reproductive organs: Unremarkable. Lymph nodes: No pathologically enlarged lymph nodes. IMPRESSION:: No acute abnormality in the abdomen or pelvis. RADIATION DOSE DELIVERED: Total DLP DATA REPOSITORY: All CT scans at this facility are submitted to the National Radiology Data Registry (NRDR) Dose Index Registry (DIR) with the [employer] (A[employer]). RADIATION OPTIMIZATION: All CT scans at this facility use at least one of these dose optimization techniques: automated exposure control; mA and/or kV adjustment per patient size (includes targeted exams where dose is matched to clinical indication); or iterative reconstruction.
== END ==
LOC: DI 03:08
PROVIDERS: PCP Nurse Practitioner Family; Visit Provider Nurse Practitioner Family
DX: R10.85 Abdominal pain of multiple sites (principal)
CPT/HCPCS: 74177; J3490

== ENCOUNTER → 2025-11-04 10:17 | Outpatient (BNVA) | payer MEDICARE, MEDICAID, SELFPAY | PROVIDERS: PCP Nurse Practitioner Family; Referring Provider Nurse Practitioner Family; Visit Provider Podiatrist | DX: M20.5X1 Other deformities of toe(s) (acquired), right foot (principal); G57.91 Unspecified mononeuropathy of right lower limb; M79.671 Pain in right foot; E11.42 Type 2 diabetes mellitus with diabetic polyneuropathy | CPT/HCPCS: 20600; J0702; J1100 ==